=== PATIENT | female | born 2000 | race Caucasian/White ===

== ENCOUNTER 2025-11-14 19:00 | Inpatient (IN) | payer BC, SELFPAY ==
--- OUTSIDE RECORDS SUMMARY | 2025-11-14 19:29 | XMS RPT_ITS | CCD ---
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 Name Role Phone VALDEZ FULTON Unavailable Unavailable TIMPERMAN, KELLY Unavailable Unavailable JOHNNY, KELLY Unavailable Unavailable VALDEZ FULTON Unavailable Unavailable JOHNNY, KELLY Unavailable Unavailable Liz Edgar Primary Care Provider [phone] Nguyễn [employer] TRAFFIC CONTROLLER, Tabbitha Carlos Primary Care Prov ider Liz Edgar MD Primary Care Provider NGUYỄN TABBITHA CARLOS Attending Unava ilable NGUYỄN, TABBITHA CARLOS Primary Care Unava ilable Nguyễn [employer] ROUTE TRAFFIC CONTROLLER, Tabbitha Carlos Primary Care Prov ider Nguyễn AIR ROUTE TRAFFIC CONTROLLER, Tabbitha Carlos Unavailable Unavailable Primary Care Provider UnavailSARAH Duke Attending Unavailable Nguyễn AIR ROUTE TRAFFIC CONTROLLER, Tabbitha Carlos Unavailable NGUYỄN, TABBITHA CARLOS Primary Care Unava ilable Nguyễn AIR ROUTE TRAFFIC CONTROLLER, Tabbitha D Primary Care Provider Nguyễn AIR ROUTE TRAFFIC CONTROLLER, Tabbitha Carlos Primary Care Prov ider LUANN LOMAS Attending Unavailable NGUYNỄ, TABBITHA CARLOS Primary Care Unava ilable SLAVA SANCHEZ Attending Unavailabl e NGUYỄN, TABBITHA CARLOS Primary Care Unava ilable SLAVA SANCHEZ Referring Unavailabl e NGUYỄN, TABBITHA CARLOS Primary Care Unava ilable NGUYỄN, TABBITHA CARLOS Attending Unava ilable NGUYỄN, TABBITHA CARLOS Primary Care Unava ilable NGUYỄN, TABBITHA CARLOS Attending Unava ilable NGUYỄN, TABBITHA CARLOS Primary Care Unava ilable Huong Hicks Admitting Unavail able Huong Hicks Attending Unavail able Huong Hicks Referring Unavail able ERIKA, 2 Primary Care Unavailable KENDAL, TIANA Referring Unavailable NGUYỄN, TABBITHA CARLOS Primary Care Unava ilable NGUYỄN, TABBITHA CARLOS Primary Care Unava ilable KENDAL, TIANA Referring Unavailable DEENA HANSON Attending Unavailable NGUYỄN, TABBITHA CARLOS Primary Care Unava ilable KENDAL, TIANA Referring Unavailable KENDAL, TIANA Attending Unavailable SELF Referring Unavailable NGUYỄN, TABBITHA CARLOS Primary Care Unava ilable NGUYỄN, TABBITHA CARLOS Primary Care Unava ilable DEENA HANSON Attending Unavailable NGUYỄN, TABBITHA CARLOS Primary Care Unava ilable DEENA HANSON Referring Unavailable NGUYỄN, TABBITHA CARLOS Primary Care Unava ilable BENDARAM, CORY VALDOVINOS Attending Unavaila ble NGUYỄN, TABBITHA CARLOS Primary Care Unava ilable NGUYỄN, TABBITHA CARLOS Primary Care Unava ilable ARELI BOOTH Referring Unavailable WAYNE HERNÁNDEZ Attending Unavailable NGUYỄN, TABBITHA CARLOS Primary Care Unava ilable BENDARAM, CORY VALDOVINOS Attending Unavaila ble DEENA HANSON Referring Unavailable NGUYỄN, TABBITHA CARLOS Primary Care Unava ilable KENDAL, TIANA Referring Unavailable NGUYỄN, TABBITHA CARLOS Primary Care Unava ilable KENDAL, TIANA Referring Unavailable HUONG LY Attending Unavail able NGUYỄN, TABBITHA CARLOS Primary Care Unava ilable CRISTINE ISLAS Attending Unavailable NGUYỄN, TABBITHA CARLOS Primary Care Unava ilable BENDARAM, CORY VALDOVINOS Referring Unavaila ble NGUYỄN, TABBITHA CARLOS Primary Care Unava ilable BENDARAM, CORY VALDOVINOS Attending Unavaila ble NGUYỄN, TABBITHA CARLOS Primary Care Unava ilable HILARIO SY Attending Unavailable NGUYỄN, TABBITHA CARLOS Primary Care Unava ilable TONNY HENDRICKS Attending Unavailable NGUYỄN [facility] Primary Care Unava DEENA Mcclendon Referring Unavailable [facility] Primary Care HUONG Oliver Attending Unavail able Medications Current Medications Medication Drug Class(es) Dates Sig (Normalized) Sig (Original) aluminum chloride 200 mg/ml topical solution (2 sources) Start: 01-02-2024 End: 01-01-2025 aluminum chloride (Drysol) 20 % external solution Indications: Hyperhidrosis Apply topically nightly . 35 mL 0 01/02/2024 01/01/2025 Active amoxicillin 500 mg oral capsule (20 sources) Penicillin-class Antibacterial Start: 01-06-2025 End: 01-06-2026 take 1 capsule by mouth twice daily amoxicillin (AMOXIL) 500 MG capsule Indications: Acne vulgaris Take 1 (one) capsule (500 mg total) by mouth 2 (two) times a day . 180 capsule 3 01/06/2025 01/06/2026 Active Start: 05-22-2022 End: 01-01-2025 take 1 capsule by mouth twice daily amoxicillin (AMOXIL) 500 MG capsule Indications: Acne vulgaris Take 1 (one) capsule (500 mg total) by mouth 2 (two) times a day . 180 capsule 3 01/02/2024 01/01/2025 Active End: 05-31-2025 take 1 tablet by mouth twice daily Amoxicillin 500 mg tablet Take 500 mg by mouth two times a day. 05/31/2025 Discontinued (Discontinued by Patient) calcium carb,cit-mag cit,ox-D3 300 mg-150 mg- 400 unit Tab (2 sources) calcium carb,cit -mag cit,ox-D3 300 mg-150 mg- 400 unit Tab Take by mouth . Active cholecalciferol 0.01 mg oral tablet (12 sources) Vitamin D take 1 tablet by mouth once daily cholecalciferol (VITAMIN D-3) 400 unit tab Take 400 Units by mouth once daily. Active Drug or medicament (substance) (4 sources) End: 01-06-2025 ergocalciferol 1.25 mg oral capsule (3 sources) Provitamin D2 Compound Start: 01-09-2024 End: 01-06-2025 take 1 capsule by mouth every week ergocalciferol (ERGOCALCIFEROL) 1,250 mcg (50,000 unit) capsule Indications: Vitamin D deficiency Take 1 (one) capsule (50,000 Units total) by mouth once a week for 6 doses . 6 capsule 01/09/2024 01/06/2025 Discontinued (Therapy completed) levothyroxine sodium 0.075 mg oral capsule (20 sources) l-Thyroxine Start: 08-03-2025 take 1 capsule by mouth once daily before breakfast levothyroxine (TIROSINT) 75 mcg cap Indications: Hypothyroidism, unspecified type , 26 weeks gestation of (HCC) Take 1 capsule by mouth daily before breakfast. 90 each 1 08/03/2025 Active Start: 06-08-2025 take 1 capsule by mo uth once daily before breakfast levothyroxine (TIROSINT) 50 mcg cap Take 1 capsule by mouth daily before breakfast. 90 capsule 06/08/2025 Active Start: 05-27-2023 End: 01-06-2026 take 0.5 tablet by mouth once daily levothyroxine (SYNTHROID, LEVOTHROID) 75 MCG tablet Indications: Hypothyroidism, acquired, autoimmune Take 0.5 (one-half) tablet (37.5 mcg total) by mouth once daily . 45 tablet 3 01/06/2025 01/06/2026 Active Start: 06-19-2022 End: 12-16-2022 take 0.5 tablet by mouth once daily levothyroxine (SYNTHROID, LEVOTHROID) 75 MCG tablet Indications: Hypothyroidism, acquired, autoimmune Take 0.5 (one-half) tablet (37.5 mcg total) by mouth once daily . 90 tablet 0 06/19/2022 Active Start: 11-25-2018 End: 06-19-2022 levothyroxine (SYNTHROID, LEVOTHROID) 75 MCG tablet Take 37.5 mcg by mouth every night at bedtime . 0 11/25/2018 06/19/2022 Discontinued (Reorder) End: 06-08-2025 take 1 capsule by mouth once daily before breakfast levothyroxine (TIROSINT) 37.5 mcg capsule Take 37.5 mcg by mouth daily before breakfast. 06/08/2025 Discontinued take 1 capsule by mo uth once daily before breakfast levothyroxine (TIROSINT) 37.5 mcg capsule Take 37.5 mcg by mouth daily before breakfast. Active take 1 capsule by [facility] once daily before breakfast levothyroxine (TIROSINT) 37.5 mcg capsule Take 37.5 mcg by mouth daily before breakfast. 0 Active magnesium citrate 100 mg oral tablet (12 sources) take 1 tablet by mouth once daily magnesium citrate 100 mg tab Take 1 tablet by mouth once daily. Active 24 hr oxybutynin chloride 10 mg extended release oral tablet (19 sources) Cholinergic Muscarinic Antagonist Start: 08-29-2023 End: 01-01-2025 take 1 tablet by mouth twice daily oxyBUTYnin (DITROPAN-XL) 10 MG 24 hr tablet Indications: Spastic bladder Take 1 (one) tablet (10 mg total) by mouth 2 (two) times a day . 180 tablet 3 01/02/2024 01/01/2025 Active Start: 08-29-2023 oxybutynin XL (Ditropan-XL) 10 MG 24 hr tablet Start: 12-20-2022 End: 08-27-2023 take 1 tablet by mouth twice daily oxybutynin (DITROPAN-XL) 10 MG 24 hr tablet Take 1 (one) tablet (10 mg total) by mouth 2 (two) times a day . 0 12/20/2022 08/27/2023 Discontinued (Reorder (Suppress CancelRx Message to Pharmacy)) Start: 06-19-2022 End: 12-16-2022 take 1 tablet by mouth twice daily oxybutynin (DITROPAN-XL) 10 MG 24 hr tablet Indications: Spastic bladder Take 1 (one) tablet (10 mg total) by mouth 2 (two) times a day . 180 tablet 1 06/19/2022 12/16/2022 Active Start: 03-14-2022 End: 06-19-2022 oxybutynin (DITROPAN-XL) 10 MG 24 hr tablet Start: 07-13-2021 End: 04-01-2025 take 1 tablet by mouth once daily oxybutynin ER (DITROPAN XL) 10 mg 24 hr tablet Take 1 tablet by mouth once daily. 07/13/2021 04/01/2025 Discontinued (Course of therapy completed) no115/iron/folic ac id ( 19 ORAL) (12 sources) take 1 tablet by mouth once daily no115/iron/folic acid ( 19 ORAL) Take 1 tablet by mouth once daily. Active no115/i moe/folic acid ( 19 ORAL) Take by mouth once daily. Active Completed/Discontinued Medications Medication Drug Class(es) Dates Sig (Normalized) Sig (Original) aspirin 81 mg delayed release oral tablet (9 sources) Platelet Aggregation Inhibitor, Nonsteroidal Anti-inflammatory Drug Start: 04-01-2025 End: 06-25-2025 take 1 tablet by mouth once daily aspirin, enteric coated (ECOTRIN LOW STRENGTH) 81 mg EC tablet Indications: with uncertain dates in first trimester (HCC) Take 1 tablet by mouth once daily. 90 tablet 3 04/01/2025 06/25/2025 Discontinued barium sulfate (POLARBAR ACB) 96 % enema 1 Dose (1 source) Start: 09-09-2019 End: 09-09-2019 barium sulfate (POLARBAR ACB) 96 % enema 1 Dose doxycycline hyclate 100 mg delayed release oral tablet (2 sources) Tetracycline-class Drug End: 06-19-2022 doxycycline (DORYX) 100 MG EC tablet Take 100 mg by mouth . 0 06/19/2022 Discontinued (Patient's Request) polyethylene glycol 3350 06139 mg powder for oral solution (6 sources) Osmotic Laxative Start: 08-06-2019 End: 06-19-2022 polyethylene glycol (MIRALAX) 17 gram powder Take 2.9 g by mouth every night at bedtime . 0 08/06/2019 06/19/2022 Discontinued End: 01-06-2025 take 1 capsule by mouth once daily polyethylene glycol (MIRALAX) 17 gram powder Take 17 (seventeen) g by mouth daily Taking 1 cap full daily . 01/06/2025 Discontinued Problems Active Problems Problem Classification Problem Date Documented Da te Episodic/Chronic Administrative/social admission (8 sources) Patient encounter status; Translations: [Persons encountering health services in other specified circumstances] Episodic Headache; including migraine (1 source) Occipital headache; Translations: [Occipital pain] 09-21-2023 Episodic Immunizations and screening for infectious disease (3 sources) Encounter for immunization; Translations: [Encounter for screening for infections with a predominantly sexual mode of transmission] Onset: 04-01-2025 Episodic Menstrual disorders (2 sources) Secondary amenorrhea; Translations: [Secondary amenorrhea] Onset: 01-04-2025 01-04-2025 Chronic Nutritional deficiencies (3 sources) Vitamin D deficiency; Translations: [Vitamin D deficiency, unspecified] Chronic Other complications of (2 sources) Hypothyroidism in ; Translations: [Endocrine, nutritional and metabolic diseases complicating , unspecified trimester] 06-25-2025 Episodic Other diseases of bladder and urethra (14 sources) Spasm of bladder; Translations: [Other specified disorders of bladder] Onset: 08-05-2017 Chronic Other gastrointestinal disorders (2 sources) Altered bowel function; Translations: [Change in bowel habit] 09-24-2024 Episodic Other and delivery including normal (20 sources) Normal ; Translations: [Encounter for supervision of normal first , unspecified trimester] Onset: 04-01-2025 04-01-2025 Episodic Other screening for suspected conditions (not mental disorders or infectious disease) (10 sources) Cancer cervix screening status; Translations: [Encounter for screening for malignant neoplasm of cervix] Onset: 04-01-2025 04-01-2025 Episodic Other skin disorders (1 source) Hyperhidrosis; Translations: [Generalized hyperhidrosis] 01-02-2024 Episodic Other skin disorders (2 sources) Generalized hyperhidrosis; Translations: [Generalized hyperhidrosis] Onset: 01-02-2024 Episodic Residual codes; unclassified (3 sources) Gestation period, 8 weeks; Translations: [8 weeks gestation of ] 04-01-2025 Episodic Residual codes; unclassified (2 sources) Gestation period, 12 weeks; Translations: [12 weeks gestation of ] 04-29-2025 Episodic Residual codes; unclassified (1 source) Gestation period, 16 weeks; Translations: [16 weeks gestation of ] 05-31-2025 Episodic Residual codes; unclassified (3 sources) Gestation period, 17 weeks; Translations: [17 weeks gestation of ] 06-08-2025 Episodic Residual codes; unclassified (2 sources) Gestation period, 20 weeks; Translations: [20 weeks gestation of ] 06-25-2025 Episodic Residual codes; unclassified (1 source) Gestation period, 24 weeks; Translations: [24 weeks gestation of ] 07-23-2025 Episodic Residual codes; unclassified (1 source) Gestation period, 26 weeks; Translations: [26 weeks gestation of ] 08-03-2025 Episodic Residual codes; unclassified (1 source) 34 weeks gestation of ; Translations: [34 weeks gestation of (HCC)] Onset: 10-01-2025 Episodic Residual codes; unclassified (1 source) 32 weeks gestation of ; Translations: [32 weeks gestation of (HCC)] Onset: 09-14-2025 Episodic Residual codes; unclassified (1 source) 24 weeks gestation of ; Translations: [24 weeks gestation of (HCC)] Onset: 08-24-2025 Episodic Residual codes; unclassified (1 source) 29 weeks gestation of ; Translations: [29 weeks gestation of (HCC)] Onset: 08-24-2025 Episodic Residual codes; unclassified (1 source) 26 weeks gestation of ; Translations: [26 weeks gestation of (HCC)] Onset: 08-03-2025 Episodic Thyroid disorders (20 sources) Autoimmune hypothyroidism; Translations: [Autoimmune thyroiditis] Onset: 08-28-2010 Chronic Unclassified (12 sources) [facility] - COMMON Onset: 04-01-2025 04-01-2025 Unclassified (12 sources) Education - [place] Onset: 04-01-2025 04-01-2025 Past or Other Problems Problem Classification Problem Date Documented Da te Episodic/Chronic Mood disorders (6 sources) Mood disorders Onset: 06-19-2022 Resolved: 01-06-2025 06-19-2022 Other complications of (1 source) Endocrine, nutritional and metabolic diseases complicating , unspecified trimester; Translations: [Hypothyroid in , antepartum ([facility])] Onset: 06-25-2025 Episodic Other gastrointestinal disorders (6 sources) Constipation; Translations: [Constipation, unspecified] Onset: 06-25-2024 01-03-2024 Episodic Other gastrointestinal disorders (1 source) Constipation, unspecified; Translations: [Constipation, unspecified constipation type] Onset: 10-12-2024 Episodic Other gastrointestinal disorders (1 source) Change in bowel habit; Translations: [Change in bowel habits] Onset: 10-12-2024 Episodic Other skin disorders (16 sources) Acne vulgaris; Translations: [Acne vulgaris] Onset: 05-16-2016 Episodic Other skin disorders (1 source) Acne vulgaris; Translations: [Acne vulgaris] Onset: 06-19-2022 Episodic Residual codes; unclassified (1 source) 20 weeks gestation of ; Translations: [20 weeks gestation of (HCC)] Onset: 06-25-2025 Episodic Residual codes; unclassified (1 source) 17 weeks gestation of ; Translations: [17 weeks gestation of (HCC)] Onset: 06-08-2025 Episodic Residual codes; unclassified (1 source) 16 weeks gestation of ; Translations: [16 weeks gestation of (HCC)] Onset: 05-31-2025 Episodic Residual codes; unclassified (1 source) 12 weeks gestation of ; Translations: [12 weeks gestation of (HCC)] Onset: 04-29-2025 Episodic Residual codes; unclassified (1 source) 8 weeks gestation of ; Translations: [8 weeks gestation of (HCC)] Onset: 04-29-2025 Episodic Unclassified (1 source) Facial pressure Onset: 09-21-2023 Results Test Name Value Interpretation Reference Range Facil ity CNOVon 10-05-2025 CNOV Office Visit (ENWSTR ) MAXIMILIAN RAE ([id number]) 4 F Date Time Provider Department 10/05/25 9:20 AM CORY MARIE ENWSTR During your visit today, we recorded the following information about you: Pulse Blood pressure Weight 96/minute 120/74 85.3 kg Cory Marie MD 10/05/2025 10:12 AM Signed [facility] Follow up note CONSULTING PROVIDER: Deena Hanson APRN. CNM My final recommendations will be communicated back to the requesting provider by way of shared Medical record or a letter via [place] mail Subjective: Maximilian Ibarrayusra is a 25 year old female here for follow up of hypothyroidism. Currently 35 weeks Hypothyroidism was discovered at the age of 12 years. She has seen pediatric endocrinology and was started on levothyroxine. Then was transferred back to her occupational therapist aide, who has monitored labs every 6 months, until she was transitioned to PCP at adult medicine after which labs were done annually. Her dose has not changed since Cause of hypothyroidism: unclear, reports she knows it is not Jake's Current treatment: Tirosint 75 mcg daily Prior treatment: Tirosint 37.5 mcg daily followed by 50 mcg daily changed during - Takes medication 30 minutes to sometimes 2 hours after last meal, depending on schedule. - Takes vitamins in the evening - Denies significant changes in sleep, or bowel habits beyond typical -related symptoms. - Experiencing typical symptoms, including fatigue and slight changes in appetite. - denied any concerns today - No family history of thyroid or autoimmune issues. REVIEW OF SYSTEMS: GENERAL:No weight loss, malaise or fevers HEENT:Negative for frequent or significant headaches, No changes in hearing or vision, no nose bleeds or other nasal problems NECK:Negative for lumps, goiter, pain and significant neck swelling RESPIRATORY: Negative for cough, hemoptysis, wheezing or shortness of breath CARDIOVASCULAR: Negative for chest pain, leg swelling or palpitations GASTROINTESTINAL: No nausea, vomiting, or persistent diarrhea GENITOURINARY: no dysuria, Polyuria, no changes in urinary frequency MUSCULOSKELETAL:no muscle aches, arthralgia NEUROLOGIC: no numbness, tingling, no Paresthesias, no headaches SKIN:Negative for lesions, rash, and itching PSYCHIATRIC: Negative for sleep disturbance, mood disorder and recent psychosocial stressors. HEMATOLOGIC/LYMPHATIC /IMMUNOLOGIC:Negative for prolonged bleeding, bruising easily ENDOCRINE: Negative for cold or heat intolerance or goiter ALLERGIES: ALLERGIES No Known Allergies MEDICATIONS: Current Outpatient Medications on File Prior to Visit Medication Sig no115/iron/folic acid ( 19 ORAL) Take 1 tablet by mouth once daily. magnesium citrate 100 mg tab Take 1 tablet by mouth once daily. cholecalciferol (VITAMIN D-3) 400 unit tab Take 400 Units by mouth once daily. levothyroxine (TIROSINT) 37.5 mcg capsule Take 37.5 mcg by mouth daily before breakfast. aspirin, enteric coated (ECOTRIN LOW STRENGTH) 81 mg EC tablet Take 1 tablet by mouth once daily. (Patient not taking: Reported on 05/31/2025) No current facility-administered medications on file prior to visit. PAST MEDICAL HISTORY: PAST MEDICAL HISTORY Diagnosis Date Coitus painful for female Cystic acne Pt reported Hypothyroidism Pt reported Overactive bladder Pt reported Sessile serrated polyp of colon PAST SURGICAL HISTORY: PAST SURGICAL HISTORY Procedure Laterality Date BLADDER SURGERY HX at age 7 COLONOSCOPY DIAGNOSTIC 10/12/2024 Sessile Serrated polyp COLPOSCOPY CERVIX VAG LOOP ELTRD BX CERVIX EXTRACTION ERUPTED TOOTH/EXR FAMILY HISTORY: FAMILY HISTORY Problem Relation Age of Onset Colon Cancer Other Breast Cancer Other Colon Cancer Other SOCIAL HISTORY: Social History Tobacco Use Smoking status: Never Passive exposure: Never Smokeless tobacco: Never Vaping Use Vaping status: Never Used Substance Use Topics Alcohol use: Never Drug use: Never PHYSICAL EXAM: BP 120/74 (BP Site: Right Arm, BP Position: Sitting, BP Cuff Size: Large Adult) Pulse 96 Wt 85.3 kg (188 lb) LMP 02/01/2025 (Exact Date) SpO2 98% BMI 32.27 kg/m? Last 3 Encounter Wt Readings: Date: Wt: 05/31/2025 72.2 kg (159 lb 3.2 oz) 04/29/2025 69.4 kg (153 lb) 04/01/2025 69.9 kg (154 lb) General: Alert and oriented x3, no acute distress Eyes: Anicteric sclera. Extraocular movements are intact. Neck supple, no cervical lymphadenopathy Thyroid: normal size, normal texture, no palpable nodules Lungs: Breathing unlabored, No wheezing Heart: regular rate and rhythm, no murmur, S1 and S2 normal Musculoskeletal: Muscular strength intact, No joint swelling, deformity, or tenderness Neuro: Gait normal. (more content not included)... Normal [facility] T4 Free SerPl-mCncon 025 Free T4 [Mass/Vol] 0.9 ng/dL Normal 0.9-1.7 [facility] Comment on above: Order Comment: Speci men Type: BLOOD SPECIMENOrdering Facility: [facility] Address: [address] [place] [address] Performed By: #### 3 024-7, 3016-3 ####[facility] LABCLIA [id number] [place] [address] [place] TSH SerPl-aCncon 09-14-2025 TSH Qn 1.730 m[IU]/L Normal 0.270-4.200 [facility] Comment on above: Order Comment: Zabrina romeo Type: BLOOD SPECIMENOrdering Facility: [facility] Address: [address] [place] [address] Result Comment: If t he patient is , TSH reference range varies by gestational period: First Trimester (weeks 9-12): 0.180-2.990 mIU/L Second Trimester: 0.110-3.980 mIU/L Third Trimester: 0.480-4.710 mIU/L Miguel Angel Amezcua et al. A Practical Approach for the Verifications and Determination of Site- and Trimester-Specific Reference Intervals for Thyroid Function tests in . Thyroid, 2019:29:3:412-420. Goyo E, et al. 2017 Guidelines of the [place] [employer] Association for the Diagnosis and Management of Thyroid Disease during and the . Thyroid, 2017:27:3:315-389. Performed By: #### 3 024-7, 3016-3 ####[facility] LABCLIA [id number] [place] [address] [place] CBC panel Auto (Bld)on 08-24 Erythrocyte distribution width (RBC) [Ratio] 13.2 % Normal 11.5-15.0 [facility] Comment on above: Order Comment: Zabrina romeo Type: BLOOD SPECIMENOrdering Facility: [facility] Address: [address] [place] [address] Performed By: #### 5 8410-2 ####[facility] [id number] [place] [address] [place] Hematocrit (Bld) [Volume fraction] 32.9 % Low 36.0-46.0 [facility] Comment on above: Order Comment: Zabrina romeo Type: BLOOD SPECIMENOrdering Facility: [facility] Address: [address] [place] [address] Performed By: #### 5 8410-2 ####[facility] [id number] [place] [address] [place] Hemoglobin (Bld) [Mass/Vol] 11.1 g/dL Low 11.5-15.5 [facility] Comment on above: Order Comment: Speci men Type: BLOOD SPECIMENOrdering Facility: [facility] Address: [address] [place] [address] Performed By: #### 5 8410-2 ####[facility] [id number] [address] [place] MCH (RBC) [Entitic mass] 31.2 pg Normal 26.0-34.0 [facility] Comment on above: Order Comment: Speci men Type: BLOOD SPECIMENOrdering Facility: [facility] Address: [address] [place] [address] Performed By: #### 5 8410-2 ####[facility] [id number] [place] [address] [place] MCHC (RBC) [Mass/Vol] 33.7 g/dL Normal 30.5-36.0 [facility] Comment on above: Order Comment: Speci men Type: BLOOD SPECIMENOrdering Facility: [facility] Address: [address] [place] [address] Performed By: #### 5 8410-2 ####[facility] [id number] [place] [address] [place] MCV (RBC) [Entitic vol] 92.4 fL Normal 80.0-100.0 [facility] Comment on above: Order Comment: Speci men Type: BLOOD SPECIMENOrdering Facility: [facility] Address: [address] [place] [address] Performed By: #### 5 8410-2 ####[facility] [id number] [address] [place] Nucleated RBC (Bld) [#/Vol] 10*3/uL Normal <0.01 [facility] Comment on above: Order Comment: Speci men Type: BLOOD SPECIMENOrdering Facility: [facility] Address: [address] [place] [address] Performed By: #### 5 8410-2 ####[facility] RICHMONDNCJEFFA [id number] [place] [address] [place] Platelet mean volume (Bld) [Entitic vol] 10.6 fL Normal 9.0-12.7 [facility] Comment on above: Order Comment: Speci men Type: BLOOD SPECIMENOrdering Facility: [facility] Address: [address] [place] [address] Performed By: #### 5 8410-2 ####[facility] MIKHAILSMOAKSNCLIA [id number] [place] [address] [place] Platelets (Bld) [#/Vol] 224 10*3/uL Normal 150-400 [facility] Comment on above: Order Comment: Speci men Type: BLOOD SPECIMENOrdering Facility: [facility] Address: [address] [place] [address] Performed By: #### 5 8410-2 ####[facility] [id number] [place] [address] [place] RBC (Bld) [#/Vol] 3.56 10*6/uL Low 3.90-5.20 [facility] Comment on above: Order Comment: Speci men Type: BLOOD SPECIMENOrdering Facility: [facility] Address: [address] [place] [address] Performed By: #### 5 8410-2 ####[facility] [id number] [place] [address] [place] WBC (Bld) [#/Vol] 12.96 10*3/uL High 3.70-11.00 [facility] Comment on above: Order Comment: Speci men Type: BLOOD SPECIMENOrdering Facility: [facility] Address: [address] [place] [address] Performed By: #### 5 8410-2 ####[facility] [id number] [place] [address] [place] GESTATIONAL GLUCOSE SCREEN, 1-HOUR, 50 GRAM, NON-FASTINGon 08-24-2025 Glucose [Mass/Vol] 86 mg/dL Normal 74-134 [facility] Comment on above: Order Comment: Speci men Type: BLOOD SPECIMENOrdering Facility: [facility] Address: [address] [place] [address] Result Comment: [facility] Congress of Obstetricians and Gynecologists (Pastora/Karen) guidelines state a gestational diabetes mellitus positive screen is made, in women not previously diagnosed with overt diabetes, when the 1 hr plasma glucose level is equal to or above 140 mg/dL. The [facility] [employer] [facility] [place] recommends a 135 mg/dL cutoff. Performed By: #### G LTGST ####[facility] [id number] [place] [address] [place] Reagin and Treponema pallidu m IgG and IgM [Interp]on 08-24-2025 T. pallidum IgG+IgM IA Ql (S) Non-Reactive Normal Nonreactive [facility] Comment on above: Order Comment: Speci men Type: BLOOD SPECIMENOrdering Facility: [facility] Address: [address] [place] [address] Performed By: #### 7 3752-8 ####[facility] LABCLIA [id number] [place] [id number] [place] Reagin+T pallidum IgG+IgM Se rPl-Impon 08-24-2025 Reagin and Treponema pallidum IgG and IgM [Interp] Cannot exclude recent Treponemal infection if specimen collected within 7-10 days after appearance of suspect lesions or 2-3 weeks after an exposure. Clinical correlation is required. Normal [facility] Comment on above: Order Comment: Speci men Type: BLOOD SPECIMENOrdering Facility: [facility] Address: [address] [place] [address] Performed By: #### 7 3752-8 ####[facility] EVERARDO [id number] [place] PAEZ [address] OF [facility] CNOVon 08-03-2025 CNOV Office Visit (ENWSTR ) MAXIMILIAN RAE ([id number]) 4 F Date Time Provider Department 08/03/25 9:00 AM CORY MARIE ENWSTR During your visit today, we recorded the following information about you: Temperature Pulse Respiration Blood pressure 98.1 degrees 67/minute 20/minute 106/72 Weight 79.4 kg Cory Marie MD 09/02/2025 1:26 AM Signed [facility] Follow up note CONSULTING PROVIDER: Deena Hanson APRN. CNM My final recommendations will be communicated back to the requesting provider by way of shared Medical record or a letter via [place] mail Subjective: Maximilian Rae is a 25 year old female here for follow up of hypothyroidism. Currently 26 weeks Hypothyroidism was discovered at the age of 12 years. She has seen pediatric endocrinology and was started on levothyroxine. Then was transferred back to her occupational therapist aide, who has monitored labs every 6 months, until she was transitioned to PCP at adult medicine after which labs were done annually. Her dose has not changed since Cause of hypothyroidism: unclear, reports she knows it is not Jake's Current treatment: Tirosint 50 mcg daily Prior treatment: Tirosint 37.5 mcg daily - Takes medication 30 minutes to sometimes 2 hours after last meal, depending on schedule. - Takes vitamins in the evening - Denies significant changes in sleep, or bowel habits beyond typical -related symptoms. - Experiencing typical symptoms, including fatigue and slight changes in appetite. - denied any concerns today - No family history of thyroid or autoimmune issues. REVIEW OF SYSTEMS: GENERAL:No weight loss, malaise or fevers HEENT:Negative for frequent or significant headaches, No changes in hearing or vision, no nose bleeds or other nasal problems NECK:Negative for lumps, goiter, pain and significant neck swelling RESPIRATORY: Negative for cough, hemoptysis, wheezing or shortness of breath CARDIOVASCULAR: Negative for chest pain, leg swelling or palpitations GASTROINTESTINAL: No nausea, vomiting, or persistent diarrhea GENITOURINARY: no dysuria, Polyuria, no changes in urinary frequency MUSCULOSKELETAL:no muscle aches, arthralgia NEUROLOGIC: no numbness, tingling, no Paresthesias, no headaches SKIN:Negative for lesions, rash, and itching PSYCHIATRIC: Negative for sleep disturbance, mood disorder and recent psychosocial stressors. HEMATOLOGIC/LYMPHATIC /IMMUNOLOGIC:Negative for prolonged bleeding, bruising easily ENDOCRINE: Negative for cold or heat intolerance or goiter ALLERGIES: ALLERGIES No Known Allergies MEDICATIONS: Current Outpatient Medications on File Prior to Visit Medication Sig no115/iron/folic acid ( 19 ORAL) Take 1 tablet by mouth once daily. magnesium citrate 100 mg tab Take 1 tablet by mouth once daily. cholecalciferol (VITAMIN D-3) 400 unit tab Take 400 Units by mouth once daily. levothyroxine (TIROSINT) 37.5 mcg capsule Take 37.5 mcg by mouth daily before breakfast. aspirin, enteric coated (ECOTRIN LOW STRENGTH) 81 mg EC tablet Take 1 tablet by mouth once daily. (Patient not taking: Reported on 05/31/2025) No current facility-administered medications on file prior to visit. PAST MEDICAL HISTORY: PAST MEDICAL HISTORY Diagnosis Date Cystic acne Pt reported Hypothyroidism Pt reported Overactive bladder Pt reported Sessile serrated polyp of colon PAST SURGICAL HISTORY: PAST SURGICAL HISTORY Procedure Laterality Date BLADDER SURGERY HX at age 7 COLONOSCOPY DIAGNOSTIC 10/12/2024 Sessile Serrated polyp EXTRACTION ERUPTED TOOTH/EXR FAMILY HISTORY: FAMILY HISTORY Problem Relation Age of Onset Colon Cancer Other SOCIAL HISTORY: Social History Tobacco Use Smoking status: Never Smokeless tobacco: Never Vaping Use Vaping status: Never Used Substance Use Topics Alcohol use: Never Drug use: Never PHYSICAL EXAM: BP 106/72 (BP Site: Right Arm, BP Position: Sitting, BP Cuff Size: Regular Adult) Pulse 67 Temp 36.7 ?C (98.1 ?F) (Temporal Artery) Resp 20 Wt 79.4 kg (175 lb) LMP 02/01/2025 (Exact Date) SpO2 99% BMI 30.04 kg/m? Last 3 Encounter Wt Readings: Date: Wt: 05/31/2025 72.2 kg (159 lb 3.2 oz) 04/29/2025 69.4 kg (153 lb) 04/01/2025 69.9 kg (154 lb) General: Alert and oriented x3, no acute distress Eyes: Anicteric sclera. Extraocular movements are intact. No lid lag or stare Neck supple, no cervical lymphadenopathy Thyroid: normal size, normal texture, no palpable nodules Lungs: Breathing unlabored, No wheezing, rhonchi, rales Heart: regular rate and rhythm, no murmur, S1 and S2 normal Musculoskeletal: Muscular strength intact, No joint swelling, deformity, or tenderness Neuro: Gait normal. Sensation grossly intact. No focal findings Abdomen: (more content not included)... Normal [facility] T4 Free SerPl-mCncon 025 Free T4 [Mass/Vol] 1.0 ng/dL Normal 0.9-1.7 [facility] Comment on above: Order Comment: Speci men Type: BLOOD SPECIMENOrdering Facility: [facility] Address: [address] [place] [address] Performed By: #### 3 024-7, 3016-3 ####[facility] LABCLIA [id number] [place] [address] [place] TSH SerPl-aCncon 07-23-2025 TSH Qn 3.690 m[IU]/L Normal 0.270-4.200 [facility] Comment on above: Order Comment: Speci men Type: BLOOD SPECIMENOrdering Facility: [facility] Address: [address] [place] [address] [place] [address] Result Comment: If t he patient is , TSH reference range varies by gestational period: First Trimester (weeks 9-12): 0.180-2.990 mIU/L Second Trimester: 0.110-3.980 mIU/L Third Trimester: 0.480-4.710 mIU/L Miguel Angel Amezcua et al. A Practical Approach for the Verifications and Determination of Site- and Trimester-Specific Reference Intervals for Thyroid Function tests in . Thyroid, 2019:29:3:412-420. Goyo Pascal, et al. 2017 Guidelines of the [place] Thyroid Association for the Diagnosis and Management of Thyroid Disease during and the . Thyroid, 2017:27:3:315-389. Performed By: #### 3 024-7, 3016-3 ####[facility] LABCLIA [id number] [address] Examination level ultrasound on 06-25-2025 Indication Standard anatomic survey Impression The patient is referred for a standard anatomic survey. - Single, live, intrauterine . - biometry is consistent with the established gestational age. - No malformations were visualized on a complete standard anatomic survey. - The amniotic fluid volume is normal amount. - The placenta is anterior, fundal. - The Transabdominal cervical length measures 31 mm with no evidence of funneling or other dynamic changes. - Not all structural malformations can be detected by ultrasound examination. Recommendations Additional follow-up as clinically indicated. Maternal Assessment Height 152 cm Height (ft) 5 ft Physical Exam Initial weight (lb) 153 lb Initial BMI 29.88 kg/m Maternal assessment other: 2 Para 0 REMOTE READ Method Transabdominal ultrasound examination. View: Suboptimal view: limited by position Sandoval . Number of fetuses: 1 Dating LMP on: 02/01/2025 GA by LMP 20 w + 4 d FINA by LMP: 11/08/2025 GA by prior assessment 20 w + 4 d FINA by prior assessment: 11/08/2025 Ultrasound examination on: 06/25/2025 GA by U/S based upon: AC, BPD, Femur, HC GA by U/S 19 w + 6 d FINA by U/S: 11/13/2025 Assigned: based on stated FINA, selected on 06/25/2025 Assigned GA 20 w + 4 d Assigned FINA: 11/08/2025 General Evaluation Cardiac activity present. FHR 142 bpm. movements: present. Presentation: cephalic Placenta: Placental site: anterior, fundal Umbilical cord: Cord vessels: 3 vessel cord Amniotic fluid: Amount of AF: normal amount. MVP 5.8 cm Growth Overview Exam date GA BPD (mm) HC (mm) AC (mm) FL (mm) HL (mm) EFW (g) 06/25/2025 20w 4d 44.3 9% 166.7 16% 159.2 60% 30.6 24% 29.4 17% 336 25% Biometry Standard BPD 44.3 mm 19w 3d 9% Hadlock OFD 59.0 mm 19w 2d 11% Nicolaides HC 166.7 mm 19w 2d 16% Tasneem Cerebellum tr 20.7 mm 19w 5d 38% Hill Nuchal fold 4.4 mm AC 159.2 mm 21w 0d 60% Hadlock Femur 30.6 mm 19w 4d 24% Tasneem Humerus 29.4 mm 19w 4d 17% Tasneem EFW 336 g 20w 1d 25% Hadlock EFW (lb) 0 lb EFW (oz) 12 oz EFW by: Hadlock (HC-AC-FL) Extended Renal Dietitian 5.5 mm CM 2.3 mm <1% Nicolaides Extremities / Bony Struc FL / HC 0.18 17% Hadlock Other Structures FHR 142 bpm Anatomy Cranium: normal Lateral ventricles: normal Choroid plexus: normal Midline falx: normal Cavum septi pellucidi: normal Cerebellum: normal Cisterna magna: normal Head / Neck Vermis: Normal but not required for a standard anatomy exam Neck: Normal but not required for a standard anatomy exam Nuchal fold: Normal but not required for a standard anatomy exam Lips: normal Profile: Normal but not required for a standard anatomy exam Nose: Normal but not required for a standard anatomy exam Face Maxilla: Normal but not required for a standard anatomy exam Mandible: Normal but not required for a standard anatomy exam Orbits: Normal but not required for a standard anatomy exam Lens: Normal but not required for a standard anatomy exam 4-chamber view: normal RVOT view: normal LVOT view: normal 3-vessel view: normal [id number] view: normal Heart / Thorax Situs: situs solitus (normal) Aortic arch view: Normal but not required for a standard anatomy exam SVC: Normal but not required for a standard anatomy exam IVC: Normal but not required for a standard anatomy exam Cardiac axis: normal Rt lung: Normal but not required for a standard anatomy exam Lt lung: Normal but not required for a standard anatomy exam Diaphragm: normal Cord insertion: normal Stomach: normal Kidneys: normal Bladder: normal Genitals: normal Abdomen Abdom. wall: normal Cervical spine: normal Thoracic spine: normal Lumbar spine: normal Sacral spine: normal Arms: normal Legs: normal Rt upper arm: normal Rt forearm: normal Rt hand: normal Rt fingers: normal Lt upper arm: normal Lt forearm: normal Lt hand: normal Lt fingers: normal Rt upper leg: normal Rt lower leg: normal Rt foot: normal Lt upper leg: normal Lt lower leg: normal Lt foot: normal sex: female Wants to know sex: yes Maternal Structures Uterus / Cervix Uterus: Visualized Cervix: Visualized Approach: Transabdominal Cervical length 31.0 mm Other: Patient declined transvaginal ultrasound for cervical length. Ovaries / Tubes / Adnexa Rt ovary: Visualized Lt ovary: Visualized Performed By: Vesta Rhoades RDMS, RVT Read By: Emily Ortiz M.D. MATERNAL MEDICINE [facility] Radiology Study observation (narrative) [facility] CNOVon 06-08-2025 CNOV Office Visit (ENWSTR ) KYRAKONSTANTINMAXIMILIAN ([id number]) 4 F Date Time Provider Department 06/08/25 2:20 PM CORY MARIE During your visit today, we recorded the following information about you: Pulse Respiration Blood pressure Weight 72/minute 16/minute 116/74 73.5 kg Height 1.626 m Cory Marie MD 06/08/2025 2:45 PM Signed [facility] Initial Clinic Visit Note CONSULTING PROVIDER: eDena Hanson APRN. CNM My final recommendations will be communicated back to the requesting provider by way of shared Medical record or a letter via [place] mail Subjective: Maximilian Kyra is a 25 year old female here to establish care for hypothyroidism. Currently 18 weeks Hypothyroidism was discovered at the age of 12 years. She has seen pediatric endocrinology and was started on levothyroxine. Then was transferred back to her occupational therapist aide, who has monitored labs every 6 months, until she was transitioned to PCP at adult medicine after which labs were done annually. Her dose has not changed since Cause of hypothyroidism: unclear, reports she knows it is not Jake's Current treatment: Tirosint 37.5 mcg daily Prior treatment: same - Takes medication 30 minutes to sometimes 2 hours after last meal, depending on schedule. - Takes vitamins after first or second meal. - Denies significant changes in appetite, sleep, or bowel habits beyond typical -related symptoms. - No significant morning sickness; able to keep food down with mild nausea and selective eating. - Experiencing typical symptoms, including fatigue and changes in appetite. - No family history of thyroid or autoimmune issues. REVIEW OF SYSTEMS: GENERAL:No weight loss, malaise or fevers HEENT:Negative for frequent or significant headaches, No changes in hearing or vision, no nose bleeds or other nasal problems NECK:Negative for lumps, goiter, pain and significant neck swelling RESPIRATORY: Negative for cough, hemoptysis, wheezing or shortness of breath CARDIOVASCULAR: Negative for chest pain, leg swelling or palpitations GASTROINTESTINAL: No nausea, vomiting, or persistent diarrhea GENITOURINARY: no dysuria, Polyuria, no changes in urinary frequency MUSCULOSKELETAL:no muscle aches, arthralgia NEUROLOGIC: no numbness, tingling, no Paresthesias, no headaches SKIN:Negative for lesions, rash, and itching PSYCHIATRIC: Negative for sleep disturbance, mood disorder and recent psychosocial stressors. HEMATOLOGIC/LYMPHATIC /IMMUNOLOGIC:Negative for prolonged bleeding, bruising easily ENDOCRINE: Negative for cold or heat intolerance or goiter ALLERGIES: ALLERGIES No Known Allergies MEDICATIONS: Current Outpatient Medications on File Prior to Visit Medication Sig no115/iron/folic acid ( 19 ORAL) Take 1 tablet by mouth once daily. magnesium citrate 100 mg tab Take 1 tablet by mouth once daily. cholecalciferol (VITAMIN D-3) 400 unit tab Take 400 Units by mouth once daily. levothyroxine (TIROSINT) 37.5 mcg capsule Take 37.5 mcg by mouth daily before breakfast. aspirin, enteric coated (ECOTRIN LOW STRENGTH) 81 mg EC tablet Take 1 tablet by mouth once daily. (Patient not taking: Reported on 05/31/2025) No current facility-administered medications on file prior to visit. PAST MEDICAL HISTORY: PAST MEDICAL HISTORY Diagnosis Date Cystic acne Pt reported Hypothyroidism Pt reported Overactive bladder Pt reported Sessile serrated polyp of colon PAST SURGICAL HISTORY: PAST SURGICAL HISTORY Procedure Laterality Date BLADDER SURGERY HX at age 7 COLONOSCOPY DIAGNOSTIC 10/12/2024 Sessile Serrated polyp EXTRACTION ERUPTED TOOTH/EXR FAMILY HISTORY: FAMILY HISTORY Problem Relation Age of Onset Colon Cancer Other SOCIAL HISTORY: Social History Tobacco Use Smoking status: Never Smokeless tobacco: Never Vaping Use Vaping status: Never Used Substance Use Topics Alcohol use: Never Drug use: Never PHYSICAL EXAM: BP 116/74 (BP Site: Right Arm, BP Position: Sitting, BP Cuff Size: Regular Adult) Pulse 72 Resp 16 Ht 162.6 cm (5' 4) Wt 73.5 kg (162 lb) LMP 02/01/2025 (Exact Date) SpO2 100% BMI 27.81 kg/m? Last 3 Encounter Wt Readings: Date: Wt: 05/31/2025 72.2 kg (159 lb 3.2 oz) 04/29/2025 69.4 kg (153 lb) 04/01/2025 69.9 kg (154 lb) General: Alert and oriented x3, no acute distress Eyes: Anicteric sclera. Extraocular movements are intact. Neck supple, no cervical lymphadenopathy Thyroid: normal size, normal texture, no palpable nodules Lungs: Breathing unlabored, No wheezing, rhonchi, rales Heart: regular rate and rhythm, no murmer Musculoskeletal: Muscular strength intact, No joint swelling, deformity, or tenderness Neuro: Gait normal. Sensation grossly intact. No focal (more content not included)... Normal [facility] MAXIMIL[facility]AE ([id number]) 4 F Date Time Provider Department 06/02/25 DEENA HANSON During your visit today, we recorded the following information about you: Nessa Harris RN 06/02/2025 2:07 PM Signed Deena Hanson APRN.CNM to [facility] Ob-Optics Engineer Pool 06/02/25 12:45 PM Result Note TSH abnormal. Order for endocrinology consult placed. Please assist with scheduling. Deena Hanson APRN.CNM THYROID STIMULATING HORMONE; T4 FREE/FREE THYROXINE Nessa Harris RN 06/02/2025 2:07 PM Signed New Pt appt scheduled for 07/19/25 at 8am. Message sent to Dr. Marie's nurse to see if Pt can be seen sooner. Pt aware that we are trying to get her a sooner appt here in [facility] and will be in contact with her if we are able. If we don't hear back from Dr. Marie's office by end of today, this RN will route to her in the meantime to see if she has suggestions re: P's current levothyroxine dose until Pt can be seen or if she can give permission for Pt to be placed in a sooner appt spot. INEZ Cooper Brittney, RN 06/03/2025 10:15 AM Signed Call placed to Pt - endocrinology appt moved to 06/08/2025, at 2:20pm per Dr. Marie. Pt notified and voices understanding. Oumou Chavarria RN June 03, 2025 10:14 AM Allergies As of Date: 06/02/2025 (No Known Allergies) Date Reviewed: 05/31/2025 Reviewed by: Karin Vargas LPN - Fully Assessed Reason for Visit: Results [95] Prescriptions as of 06/03/2025 - aspirin, enteric coated (ECOTRIN LOW STRENGTH) 81 mg EC tablet Take 1 tablet by mouth once daily. - no115/iron/folic acid ( 19 ORAL) Take by mouth once daily. - magnesium citrate 100 mg tab Take by mouth once daily. - cholecalciferol (VITAMIN D-3) 400 unit tab Take 400 Units by mouth once daily. - levothyroxine (TIROSINT) 37.5 mcg capsule Take 37.5 mcg by mouth daily before breakfast. Problem List As Of Date 06/02/2025 Noted Resolved Supervision of normal first , antepart*04/01/2025 Hypothyroidism [E03.9] 04/01/2025 Encounter Status:Closed by VESTA GOODE on 06/03/25 Normal [facility] T4 Free SerPl-mCncon 025 Free T4 [Mass/Vol] 1.1 ng/dL Normal 0.9-1.7 [facility] Comment on above: Order Comment: Speci men Type: BLOOD SPECIMENOrdering Facility: [facility] Address: [address] [place] [address] Performed By: #### 3 024-7, 3016-3 ####[facility] LABCLIA [id number] [place] [address] [place] TSH SerPl-aCncon 05-31-2025 TSH Qn 6.200 m[IU]/L High 0.270-4.200 [facility] Comment on above: Order Comment: Speci agueda Type: BLOOD SPECIMENOrdering Facility: [facility] Address: [address] [place] [address] Result Comment: If t he patient is , TSH reference range varies by gestational period: First Trimester (weeks 9-12): 0.180-2.990 mIU/L Second Trimester: 0.110-3.980 mIU/L Third Trimester: 0.480-4.710 mIU/L Miguel Angel Amezcua et al. A Practical Approach for the Verifications and Determination of Site- and Trimester-Specific Reference Intervals for Thyroid Function tests in . Thyroid, 2019:29:3:412-420. Goyo Pascal, et al. 2017 Guidelines of the [place] Thyroid Association for the Diagnosis and Management of Thyroid Disease during and the . Thyroid, 2017:27:3:315-389. Performed By: #### 3 024-7, 3016-3 ####[facility] LABCLIA [id number] [place] [address] [place] CBC W Auto Differential pane l (Bld)on 04-29-2025 Basophils (Bld) [#/Vol] 0.04 10*3/uL Normal <0.11 [facility] Comment on above: Order Comment: Speci men Type: BLOOD SPECIMENOrdering Facility: [facility] Address: [address] [place] [address] Performed By: #### 5 7021-8 ####[facility] MIKHAILWNCLIA [id number] [place] [address] [place] Basophils/100 WBC (Bld) 0.4 % Normal [facility] Comment on above: Order Comment: Speci men Type: BLOOD SPECIMENOrdering Facility: [facility] Address: [address] [place] [address] Performed By: #### 5 7021-8 ####[facility]ULL[facility]IA [id number] [place] [address] [place] Differential cell count method Nom (Bld) Auto Normal [facility] Comment on above: Order Comment: Speci men Type: BLOOD SPECIMENOrdering Facility: [facility] Address: [address] [place] [address] Performed By: #### 5 7021-8 ####[facility]UM[facility]ULLLIA [id number] [place] [address] [place] Eosinophils (Bld) [#/Vol] 0.15 10*3/uL Normal <0.46 [facility] Comment on above: Order Comment: Speci men Type: BLOOD SPECIMENOrdering Facility: [facility] Address: [address] [place] [address] Performed By: #### 5 7021-8 ####[facility] ERWNCLIA [id number] [place] [address] [place] Eosinophils/100 WBC (Bld) 1.6 % Normal [facility] Comment on above: Order Comment: Speci men Type: BLOOD SPECIMENOrdering Facility: [facility] Address: [address] [place] [address] Performed By: #### 5 7021-8 ####[facility] MIKHAILEmmanuelNCLIA [id number] [place] [address] [place] Erythrocyte distribution width (RBC) [Ratio] 13.3 % Normal 11.5-15.0 [facility] Comment on above: Order Comment: Speci men Type: BLOOD SPECIMENOrdering Facility: [facility] Address: [address] [place] [address] Performed By: #### 5 7021-8 ####[facility]ETTELIA [id number] [place] [address] [place] Hematocrit (Bld) [Volume fraction] 38.1 % Normal 36.0-46.0 [facility] Comment on above: Order Comment: Speci men Type: BLOOD SPECIMENOrdering Facility: [facility] Address: [address] [place] [address] Performed By: #### 5 7021-8 ####[facility]ULLLIA [id number] [place] [address] [place] Hemoglobin (Bld) [Mass/Vol] 12.9 g/dL Normal 11.5-15.5 [facility] Comment on above: Order Comment: Speci men Type: BLOOD SPECIMENOrdering Facility: [facility] Address: [address] [place] [address] Performed By: #### 5 7021-8 ####[facility]ULLLIA [id number] [place] [address] [place] Immature granulocytes (Bld) [#/Vol] 0.04 10*3/uL Normal <0.10 [facility] Comment on above: Order Comment: Speci men Type: BLOOD SPECIMENOrdering Facility: [facility] Address: [address] [place] [address] Performed By: #### 5 7021-8 ####[facility] [id number] [place] [address] [place] Immature granulocytes/100 WBC (Bld) 0.4 % Normal [facility] Comment on above: Order Comment: Speci men Type: BLOOD SPECIMENOrdering Facility: [facility] Address: [address] [place] [address] Performed By: #### 5 7021-8 ####[facility]LIA [id number] [place] [address] [place] Lymphocytes (Bld) [#/Vol] 1.65 10*3/uL Normal 1.00-4.00 [facility] Comment on above: Order Comment: Speci men Type: BLOOD SPECIMENOrdering Facility: [facility] Address: [address] [place] [address] Performed By: #### 5 7021-8 ####[facility] [id number] [place] [address] [place] Lymphocytes/100 WBC (Bld) 17.6 % Normal [facility] Comment on above: Order Comment: Speci men Type: BLOOD SPECIMENOrdering Facility: [facility] Address: [address] [place] [address] Performed By: #### 5 7021-8 ####[facility] [id number] [place] [address] [place] MCH (RBC) [Entitic mass] 30.3 pg Normal 26.0-34.0 [facility] Comment on above: Order Comment: Speci men Type: BLOOD SPECIMENOrdering Facility: [facility] Address: [address] [place], [place] [address] Performed By: #### 5 7021-8 ####[facility] [id number] [place] [address] [place] MCHC (RBC) [Mass/Vol] 33.9 g/dL Normal 30.5-36.0 [facility] Comment on above: Order Comment: Speci men Type: BLOOD SPECIMENOrdering Facility: [facility] Address: [address] [place] [address] Performed By: #### 5 7021-8 ####[facility] MIKHAILLONNIE [id number] [place] [address] [place] MCV (RBC) [Entitic vol] 89.4 fL Normal 80.0-100.0 [facility] Comment on above: Order Comment: Speci men Type: BLOOD SPECIMENOrdering Facility: [facility] Address: [address] [place] [address] Performed By: #### 5 7021-8 ####[facility] [id number] [place] [address] [place] Monocytes (Bld) [#/Vol] 0.73 10*3/uL Normal <0.87 [facility] Comment on above: Order Comment: Speci men Type: BLOOD SPECIMENOrdering Facility: [facility] Address: [address] [place] [address] Performed By: #### 5 7021-8 ####[facility] [id number] [place] [address] [place] Monocytes/100 WBC (Bld) 7.8 % Normal [facility] Comment on above: Order Comment: Speci men Type: BLOOD SPECIMENOrdering Facility: [facility] Address: [address] [place] [address] Performed By: #### 5 7021-8 ####[facility]ULLLI [id number] [place] [address] [place] Neutrophils (Bld) [#/Vol] 6.77 10*3/uL Normal 1.45-7.50 [facility] Comment on above: Order Comment: Speci men Type: BLOOD SPECIMENOrdering Facility: [facility] Address: [address] [place] [address] Performed By: #### 5 7021-8 ####[facility] MILLWNCLIA [id number] [place] [address] [place] Neutrophils/100 WBC (Bld) 72.2 % Normal [facility] Comment on above: Order Comment: Speci men Type: BLOOD SPECIMENOrdering Facility: [facility] Address: [address] [place] [address] Performed By: #### 5 7021-8 ####[facility] [id number] [place] [address] [place] Nucleated RBC (Bld) [#/Vol] 10*3/uL Normal <0.01 [facility] Comment on above: Order Comment: Speci men Type: BLOOD SPECIMENOrdering Facility: [facility] Address: [address] [place] [address] Performed By: #### 5 7021-8 ####[facility] [id number] [place] [address] [place] Nucleated RBC/100 WBC (Bld) [Ratio] 0.0 /100 WBC Normal [facility] Comment on above: Order Comment: Speci men Type: BLOOD SPECIMENOrdering Facility: [facility] Address: [address] [place] [address] Performed By: #### 5 7021-8 ####[facility] [id number] [place] [address] [place] Platelet mean volume (Bld) [Entitic vol] 10.5 fL Normal 9.0-12.7 [facility] Comment on above: Order Comment: Speci men Type: BLOOD SPECIMENOrdering Facility: [facility] Address: [address] [place] [address] Performed By: #### 5 7021-8 ####[facility] [id number] [place] [address] [place] Platelets (Bld) [#/Vol] 253 10*3/uL Normal 150-400 [facility] Comment on above: Order Comment: Speci men Type: BLOOD SPECIMENOrdering Facility: [facility] Address: [address] [place] [address] Performed By: #### 5 7021-8 ####[facility] [id number] [place] [address] [place] RBC (Bld) [#/Vol] 4.26 10*6/uL Normal 3.90-5.20 [facility] Comment on above: Order Comment: Speci men Type: BLOOD SPECIMENOrdering Facility: [facility] Address: [address] [place] [address] Performed By: #### 5 7021-8 ####[facility] [id number] [place] [address] [place] WBC (Bld) [#/Vol] 9.38 10*3/uL Normal 3.70-11.00 [facility] Comment on above: Order Comment: Speci men Type: BLOOD SPECIMENOrdering Facility: [facility] Address: [address] [place] [address] Performed By: #### 5 7021-8 ####[facility] [id number] [place] [address] [place] Examination level ultrasound on 04-29-2025 Indication First trimester anatomic survey Impression The patient is referred for a first trimester anatomy scan including nuchal translucency measurement as clinically indicated. - Single, live, intrauterine . - Pitcairn rump length measurement is consistent with the established gestational age. - No malformations visualized on first trimester anatomic assessment. - The nuchal translucency measurement is 1.5 mm. - Not all structural malformations can be detected by ultrasound examination. Maternal Structures: Right Ovary: Size 42 mm x 26 mm x 20 mm Recommendations - An anatomic survey at 18-20 weeks is recommended given no identified risk factors. Maternal Assessment Height 152 cm Height (ft) 5 ft Weight (lb) 153 lb Physical Exam Initial weight (lb) 153 lb Initial BMI 29.88 kg/m Maternal assessment other: 2 Para 0 REMOTE READ Method Transabdominal ultrasound examination Sandoval . Number of fetuses: 1 Dating LMP on: 02/01/2025 GA by LMP 12 w + 3 d FINA by LMP: 11/08/2025 GA by prior assessment 12 w + 3 d FINA by prior assessment: 11/08/2025 Ultrasound examination on: 04/29/2025 GA by U/S based upon: CRL GA by U/S 12 w + 1 d FINA by U/S: 11/10/2025 Assigned: based on stated FINA, selected on 04/29/2025 Assigned GA 12 w + 3 d Assigned FINA: 11/08/2025 General Evaluation Cardiac activity present Placenta: anterior Cord vessels: 3 vessel cord Amniotic fluid: normal amount Biometry Standard FHR 158 bpm CRL 55.0 mm 12w 1d 15% Hadlock NT 1.50 mm First Trimester Anatomy Calvarium: normal Falx cerebri: normal Choroid plexus: normal Profile: normal Nasal bone: normal Retronasal triangle: normal Maxilla: normal Mandible: normal Nuchal translucency: Unremarkable Situs: normal Cardiac position: normal Cardiac axis: normal 4-chamber view: normal 4-chamber view with color: normal 8-ctxcpa-fxvdfnx view: normal Abdominal cord insertion: normal Stomach: normal Kidneys: normal Bladder: normal Color doppler of perivesical umbilical arteries: normal Vertebral alignment: normal Arms: normal Hands: normal Legs: normal Feet: normal Maternal Structures Uterus / Cervix Uterus: Visualized Uterus length 129 mm Uterus width 85 mm Uterus height 78 mm Uterus Vol 448.0 cm Ovaries / Tubes / Adnexa Rt ovary: Visualized Rt ovary D1 42 mm Rt ovary D2 26 mm Rt ovary D3 20 mm Rt ovary Vol 11.5 cm Lt ovary: Not visualized Performed By: Vesta Rhoades RDMS, RVT Read By: Emily Ortiz M.D. MATERNAL MEDICINE [facility] Radiology Study observation (narrative) [facility] HBV surface Ag Ser Qlon 06-0 HBV surface Ag Ql (S) Negative Normal Negative [facility] Comment on above: Order Comment: Speci men Type: BLOOD SPECIMENOrdering Facility: [facility] Address: [address] [place] [address] Performed By: #### 5 195-3, 79685-5, 09982-3 ####[facility] LABCLIA [id number] [place] [address] [place] HCV Ab Ser Qlon 04-29-2025 HCV Ab Ql (S) Negative Normal Negative [facility] Comment on above: Order Comment: Speci men Type: BLOOD SPECIMENOrdering Facility: [facility] Address: [address] [place] [address] Result Comment: The result suggests no evidence of infection with Hepatitis C virus. Should recent infection be suspected, repeat testing may be considered 4-6 weeks after this draw. Performed By: #### 1 6128-1 ####[facility] LABCLIA [id number] [place] [address] [place] HIV 1+2 Ab IA Qlon HIV 1 and 2 Ab IA.rapid Nom (S/P/Bld) Normal [facility] Comment on above: Order Comment: Speci men Type: BLOOD SPECIMENOrdering Facility: [facility] Address: [address] [place] [address] Result Comment: Test not indicated. Performed By: #### 5 195-3, 41025-6, 27584-2 ####[facility] LABCLIA [id number] [place] [address] [place] HIV 1+2 Ab+HIV1 p24 Ag IA Ql Non-Reactive Normal Nonreactive [facility] Comment on above: Order Comment: Speci men Type: BLOOD SPECIMENOrdering Facility: [facility] Address: [address] [place] [address] Performed By: #### 5 195-3, 47465-1, 04023-4 ####[facility] LABCLIA [id number] [place] [id number] [place] HIV immunoassay testing algorithm interpretation (S/P/Bld) [Interp] Normal [facility] Comment on above: Order Comment: Speci men Type: BLOOD SPECIMENOrdering Facility: [facility] Address: [address] [place] [address] Result Comment: No e vidence of HIV-1 or HIV-2 infection. Should recent infection be suspected, repeat testing may be considered 2-3 weeks after this draw. [place] Rev. Code 3701.243(E): This information has been disclosed to you from confidential records protected from disclosure by state law. You shall make no further disclosure of this information without the specific, written, and informed release of the individual to whom it pertains or as otherwise permitted by state law. A general authorization for the release of medical or other information is not sufficient for the purpose of the release of HIV test results or diagnoses. Performed By: #### 5 195-3, 46521-7, 06874-2 ####[facility] LABCLIA [id number] [place] [address] [place] HbA1c (Bld)on 04-29-2025 Average glucose Estimated from glycated hemoglobin (Bld) [Mass/Vol] 85 mg/dL Normal [facility] Comment on above: Order Comment: Speci agueda Type: BLOOD SPECIMENOrdering Facility: [facility] Address: [address] [place] [address] Result Comment: eAG: (Estimated average glucose) is a calculated value from HgbA1c and is pharmaceutical specialty representative of the average blood glucose level in the last 2-3 month period. Performed By: #### 5 5454-3 ####[facility] LABIA [id number] [place] [address] [place] HbA1c (Bld) [Mass fraction] 4.6 % Normal 4.3-5.6 [facility] Comment on above: Order Comment: Zabrina romeo Type: BLOOD SPECIMENOrdering Facility: [facility] Address: [address] [place] [address] Result Comment: Amer [place] Diabetes Association guidelines indicate that patients with HgbA1c in the range 5.7-6.4% are at increased risk for development of diabetes, and intervention by lifestyle modification may be beneficial. HgbA1c greater or equal to 6.5% is considered diagnostic of diabetes. Performed By: #### 5 5454-3 ####[facility] LABIA [id number] [place] [address] [place] RUBELLA IGG ANTIBODYon 04-29 RUBELLA IGG AB, QUAL Positive Normal Positive [facility] Comment on above: Order Comment: Speci men Type: BLOOD SPECIMENOrdering Facility: [facility] Address: [address] [place] [address] Result Comment: The result suggests recent or past exposure to Rubella virus or history of Rubella vaccination. Positive result may also be seen due to presence of passively-transferred antibodies. Please correlate with patient's history. Performed By: #### R UBIGG ####[facility] LABIA [id number] [place] [address] [place] Reagin and Treponema pallidu m IgG and IgM [Interp]on 04-29-2025 T. pallidum IgG+IgM IA Ql (S) Non-Reactive Normal Nonreactive [facility] Comment on above: Order Comment: Speci [facility] Type: BLOOD SPECIMENOrdering Facility: [facility] Address: [address] [place] [address] Performed By: #### 5 195-3, 90441-6, 07698-3 ####[facility] LABIA [id number] [place] [address] [place] Reagin+T pallidum IgG+IgM Se rPl-Impon 04-29-2025 Reagin and Treponema pallidum IgG and IgM [Interp] Cannot exclude recent Treponemal infection if specimen collected within 7-10 days after appearance of suspect lesions or 2-3 weeks after an exposure. Clinical correlation is required. Normal [facility] Comment on above: Order Comment: Speci men Type: BLOOD SPECIMENOrdering Facility: [facility] Address: [address] [place] [address] Performed By: #### 5 195-3, 91502-0, 75894-6 ####[facility] LABIA [id number] [address] [address] [place] T4 Free SerPl-mCncon 025 Free T4 [Mass/Vol] 1.0 ng/dL Normal 0.9-1.7 [facility] Comment on above: Order Comment: Speci men Type: BLOOD SPECIMENOrdering Facility: [facility] Address: [address] [place] [address] Performed By: #### 3 024-7, 3016-3 ####[facility] [id number] [place] [id number] [place] TSH SerPl-aCncon 04-29-2025 TSH Qn 4.010 m[IU]/L Normal 0.270-4.200 [facility] Comment on above: Order Comment: Speci men Type: BLOOD SPECIMENOrdering Facility: [facility] Address: [address] [place] [address] Result Comment: If t he patient is , TSH reference range varies by gestational period: First Trimester (weeks 9-12): 0.180-2.990 mIU/L Second Trimester: 0.110-3.980 mIU/L Third Trimester: 0.480-4.710 mIU/L Miguel Angel Amezcua et al. A Practical Approach for the Verifications and Determination of Site- and Trimester-Specific Reference Intervals for Thyroid Function tests in . Thyroid, 2019:29:3:412-420. Goyo Pascal, et al. 2017 Guidelines of the [place] Thyroid Association for the Diagnosis and Management of Thyroid Disease during and the . Thyroid, 2017:27:3:315-389. Performed By: #### 3 024-7, 3016-3 ####[facility] [id number] [place] [id number] [place] TYPE + SCREEN PRENATALon ABO O Normal [facility] Comment on above: Order Comment: Speci men Type: BLOOD SPECIMENOrdering Facility: [facility] Address: [address] [place] [address] Performed By: #### T SPN ####[facility] BLOOD BANKCLIA [id number] [place] [address] [place] Rh Nom (Bld) Positive Normal [facility] Comment on above: Order Comment: Speci men Type: BLOOD SPECIMENOrdering Facility: [facility] Address: [address] [place] [address] Performed By: #### T SPN ####[facility] BLOOD BANKCLIA [id number] [place] [address] [place] TYPE AND SCREEN EXPIRATION 05/02/2025 23:59 Normal [facility] Comment on above: Order Comment: Speci men Type: BLOOD SPECIMENOrdering Facility: [facility] Address: [address] [place] [address] Performed By: #### T SPN ####[facility] BLOOD BANKCLIA [id number] [place] [address] [place] Bacteria Ur Culton Bacteria identified Cx Nom (U) ORGANISM ID: 1 10,000 -<50,000 CFU/ml Normal urogenital valery Normal [facility] Comment on above: Performed By: #### 6 30-4 ####[facility] LABCLIA [id number] [place] [address] [place] C. trachomatis+N. gonorrhoea e DNA KATIE+probe Ql (Unsp spec)on 04-01-2025 C. trachomatis rRNA KATIE+probe Ql (Unsp spec) Not detected Normal Not detected [facility] Comment on above: Order Comment: Speci men Type: SWABOrdering Facility: [facility] Address: [address] [place] [address] Performed By: #### 3 6902-5, TRVAMP ####[facility] LABCLIA [id number] [place] [address] [place] N. gonorrhoeae rRNA KATIE+probe Ql (Unsp spec) Not detected Normal Not detected [facility] Comment on above: Order Comment: Speci men Type: SWABOrdering Facility: [facility] Address: [address] [place] [address] Performed By: #### 3 6902-5, TRVAMP ####[facility] LABCLIA [id number] [address] PAP TESTon 04-01-2025 ADEQUACY Normal [facility] Comment on above: Order Comment: Speci men Type: FLUID SPECIMENOrdering Facility: [facility] Address: [address] [place] [address] Result Comment: Sati sfactory for interpretation. No endocervical component Performed By: #### L [id number] ####[facility] LABORATORYCLIA [id number] [address] LABCLIA [id number] [place] [address] [place] CASE REPORT Normal [facility] Comment on above: Order Comment: Speci men Type: FLUID SPECIMENOrdering Facility: [facility] Address: [address] [place] [address] Result Comment: Gyne cologic Cytology Report Case: [id number] Authorizing Provider: Tiana Edmonds APRN.[employer]IR [employer]FFIC CONTROLLER Collected: 04/01/2025 09:04 AM Ordering Location: OB/Gynecology Received: 04/01/2025 11:58 AM First Screen: Feciuch, Anamika, CT, ASCP Rescreen: Rakel Barnes, CT, ASCP Specimen: Pap Test, ThinPrep, Cervix Performed By: #### L [id number] ####[facility] LABORATORYCLIA [id number] [address] LABCLIA [id number] [place] [id number] [place] CLINICAL HISTORY, CYTOLOGY, PATHOLOGY COLLECTOR Routine Exam Normal [facility] Comment on above: Order Comment: Speci men Type: FLUID SPECIMENOrdering Facility: [facility] Address: [address] [place] [address] Performed By: #### L [id number] ####[facility] LABORATORYCLIA [id number] [place], [place] [id number] [place] [address] LABCLIA [id number] [address] [place] [address] [place] FINAL PERFORMING LAB Normal [facility] Comment on above: Order Comment: Speci men Type: FLUID SPECIMENOrdering Facility: [facility] Address: [address] [place], [place] [id number] Result Comment: Tech nical component, chummer screening performed at: [facility], [address] [place] [address] CLIA: [id number] Diagnostic interpretation performed at: [facility], [address] [facility] [address] CLIA# [id number] Hair Tinter: Slava Ferrari MD Performed By: #### L [id number] ####[facility] LABORATORYCLIA [id number] [address] LABCLIA [id number] [place] [id number] [place] INTERPRETATION, CYTOLOGY, PATHOLOGY COLLECTOR Normal [facility] Comment on above: Order Comment: Speci men Type: FLUID SPECIMENOrdering Facility: [facility] Address: [address] [place] [address] Result Comment: Nega tive for intraepithelial lesion or malignancy. at 1610 EDT Performed By: #### L [id number] ####[facility] LABORATORYCLIA [id number] [place] [id number] [facility] LABCLIA [id number] [address] [address] [place] LMP 02/01/2025 Normal [facility] Comment on above: Order Comment: Speci men Type: FLUID SPECIMENOrdering Facility: [facility] Address: [address] [place] [address] Performed By: #### L [id number] ####[facility] LABORATORYCLIA [id number] [address] LABCLIA [id number] [address] [place] [address] [facility] PAP DISCLAIMER COMMENT The Pap Smear is a screening test for cervical cancer. False negative results occur with all screening tests, emphasizing the need for rescreening at recommended intervals, and clinical correlation. Normal [facility] Comment on above: Order Comment: Speci men Type: FLUID SPECIMENOrdering Facility: [facility] Address: [address] [place] [address] Performed By: #### L [id number] ####[facility] LABORATORYCLIA [id number] [address] LABCLIA [id number] [address] [place] [address] [facility] [place] PAP DIGITAL MEDIA DESIGNER COMMENT This specimen has been analyzed by the ThinPrep Imaging System, an automated imaging and review system, which assists the laboratory in evaluating cells on ThinPrep Pap tests. Following automated imaging, selected webster from every slide are reviewed by a chummer. Normal [facility] Comment on above: Order Comment: Speci men Type: FLUID SPECIMENOrdering Facility: [facility] Address: [address] [place] [address] Performed By: #### L [id number] ####[facility] LABORATORYCLIA [id number] [address] LABCLIA [id number] [address] [place] [address] [facility] [place] POC CFA ULTRASOUNDon 04-01-20 Indication Viability. Confirmation of intrauterine . Confirmation of cardiac activity. Estimation of gestational age Impression cardiac activity is visualized, CRL is appropriate for clinical dates, corresponding to FINA 11/08/25 Recommendations Follow up for 1st Trimester Anatomy with Nuchal Translucency as clinically indicated if desired. Method Transvaginal ultrasound examination. View: Adequate visualization Sandoval . Number of embryos: 1 Dating LMP on: 02/01/2025 GA by LMP 8 w + 3 d FINA by LMP: 11/08/2025 Ultrasound examination on: 04/01/2025 GA by U/S based upon: CRL GA by U/S 8 w + 0 d FINA by U/S: 11/11/2025 Assigned: based on the LMP, selected on 04/01/2025 Assigned GA 8 w + 3 d Assigned FINA: 11/08/2025 Biometry Standard FHR 157 bpm CRL 15.6 mm 8w 0d 13% Hadlock Assessment Gestational sac: visualized Location: intrauterine Yolk sac: visualized Embryo: visualized CRL 15.6 mm 8w 0d 13% Hadlock Cardiac activity: present FHR 157 bpm General Evaluation Cardiac activity present. FHR 157 bpm Performed By: Tiana Edmonds CNP Read By: Tiana Edmonds CNP MATERNAL MEDICINE [facility] Radiology Study observation (narrative) [facility] TRICHOMONAS VAGINALIS NAATon 04-01-2025 T. vaginalis DNA KATIE+probe Ql (Unsp spec) Not detected Normal Not detected [facility] Comment on above: Order Comment: Speci men Type: SWABOrdering Facility: [facility] Address: [address] [place] [address] Performed By: #### 3 6902-5, LYNDSEY ####[facility] LABCLIA [id number] [place] [address] [place] CBC (INCLUDES DIFF/PLT)on Basophils (Bld) [#/Vol] 0.059 10*3/uL Normal 0-200 [facility] Comment on above: Performed By: #### 8 66, 57262, 6399, 30940, 7600 #### [facility] [address], [address] [place] [id number] Reel Operator: Clyde Cavazos MD Basophils/100 WBC (Bld) 1.0 % Normal [facility] Comment on above: Performed By: #### 8 66, 44148, 6399, 19751, 7600 #### [facility] of [place] [address] [address] Reel Operator: Clyde Cavazos MD Eosinophils (Bld) [#/Vol] 0.189 10*3/uL Normal 15-500 [facility] Comment on above: Performed By: #### 8 66, 12585, 6399, 16876, 7600 #### [facility] of [place] [address] Reel Operator: Clyde Cavazos MD Eosinophils/100 WBC (Bld) 3.2 % Normal [facility] Comment on above: Performed By: #### 8 66, 07496, 6399, 20189, 7600 #### [facility] of [place] [address] Reel Operator: Clyde Cavazos MD Erythrocyte distribution width (RBC) [Ratio] 12.4 % Normal 11.0-15.0 [facility] Comment on above: Performed By: #### 8 66, 09731, 6399, 42267, 7600 #### [facility] of [place] [address] Reel Operator: Clyde Cavazos MD Hematocrit (Bld) [Volume fraction] 38.0 % Normal 35.0-45.0 [facility] Comment on above: Performed By: #### 8 66, 62389, 6399, 24775, 7600 #### [facility] of [place] [address] Reel Operator: Clyde Cavazos MD Hemoglobin (Bld) [Mass/Vol] 12.3 g/dL Normal 11.7-15.5 [facility] Comment on above: Performed By: #### 8 66, 87339, 6399, 69295, 7600 #### [facility] of [place] [address] Reel Operator: Clyde Cavazos MD Lymphocytes (Bld) [#/Vol] 1.953 10*3/uL Normal 850-3900 [facility] Comment on above: Performed By: #### 8 66, 78199, 6399, 27307, 7600 #### [facility] of [address], [address] [place] [address] Reel Operator: Clyde Cavazos MD Lymphocytes/100 WBC (Bld) 33.1 % Normal [facility] Comment on above: Performed By: #### 8 66, 93468, 6399, 04959, 7600 #### [facility] [place] [address] Reel Operator: Clyde Cavazos MD MCH (RBC) [Entitic mass] 29.9 pg Normal 27.0-33.0 [facility] Comment on above: Performed By: #### 8 66, 25272, 6399, 92298, 7600 #### [facility] [place] [address] Reel Operator: Clyde Cavazos MD MCHC (RBC) [Mass/Vol] 32.4 g/dL Normal 32.0-36.0 [facility] Comment on above: Result Comment: For adults, a slight decrease in the calculated MCHC value (in the range of 30 to 32 g/dL) is most likely not clinically significant; however, it should be interpreted with caution in correlation with other red cell parameters and the patient's clinical condition. Performed By: #### 8 66, 06727, 6399, 10825, 7600 #### [facility] [place] [address] Reel Operator: Clyde Cavazos MD MCV (RBC) [Entitic vol] 92.5 fL Normal 80.0-100.0 [facility] Comment on above: Performed By: #### 8 66, 24349, 6399, 26854, 7600 #### [facility] [place] [address] Reel Operator: Clyde Cavazos MD Monocytes (Bld) [#/Vol] 0.649 10*3/uL Normal 200-950 [facility] Comment on above: Performed By: #### 8 66, 08827, 6399, 32468, 7600 #### [facility] of [place] [address] Reel Operator: Clyde Cavazos MD Monocytes/100 WBC (Bld) 11.0 % Normal [facility] Comment on above: Performed By: #### 8 66, 19546, 6399, 22627, 7600 #### [facility] of [place] [address] Reel Operator: Clyde Cavazos MD Neutrophils (Bld) [#/Vol] 3.05 10*3/uL Normal 1974-0666 [facility] Comment on above: Performed By: #### 8 66, 94186, 6399, 83641, 7600 #### [facility] of [place] [address] Reel Operator: Clyde Cavazos MD Neutrophils/100 WBC (Bld) 51.7 % Normal [facility] Comment on above: Performed By: #### 8 66, 84211, 6399, 56101, 7600 #### [facility] of [place] [address] Reel Operator: Clyde Cavazos MD Platelet mean volume (Bld) [Entitic vol] 11.7 fL Normal 7.5-12.5 [facility] Comment on above: Performed By: #### 8 66, 94664, 6399, 03848, 7600 #### [facility] of [place] [address] Reel Operator: Clyde Cavazos MD Platelets (Bld) [#/Vol] 280 10*3/uL Normal 140-400 [facility] Comment on above: Performed By: #### 8 66, 69286, 6399, 56321, 7600 #### [facility] of [place] [address] Reel Operator: Clyde Cavazos MD RBC (Bld) [#/Vol] 4.11 10*6/uL Normal 3.80-5.10 [facility] Comment on above: Performed By: #### 8 66, 23646, 6399, 64744, 7600 #### [facility] of [place] [address] Reel Operator: Clyde Cavazos MD WBC (Bld) [#/Vol] 5.9 10*3/uL Normal 3.8-10.8 [facility] Comment on above: Performed By: #### 8 66, 72939, 6399, 88442, 7600 #### [facility] of [place] [address] Reel Operator: Clyde Cavazos MD COMPREHENSIVE METABOLIC PANE L W/ANION GAPon 01-07-2025 Albumin [Mass/Vol] 4.7 g/dL Normal 3.6-5.1 [facility] Comment on above: Performed By: #### 8 66, 03610, 6399, 27510, 7600 #### [facility] of [place] [address] Reel Operator: Clyde Cavazos MD ALP [Catalytic activity/Vol] 46 U/L Normal 31-125 [facility] Comment on above: Performed By: #### 8 66, 67660, 6399, 30311, 7600 #### [facility] of [place] [address] Reel Operator: Clyde Cavazos MD ALT [Catalytic activity/Vol] 21 U/L Normal 6-29 [facility] Comment on above: Performed By: #### 8 66, 69849, 6399, 92046, 7600 #### [facility] of [place] [address] Reel Operator: Clyde Cavazos MD AST [Catalytic activity/Vol] 16 U/L Normal 10-30 [facility] Comment on above: Performed By: #### 8 66, 05132, 6399, 09043, 7600 #### [facility] of [place] [address] Reel Operator: Clyde Cavazos MD Bilirubin [Mass/Vol] 0.3 mg/dL Normal 0.2-1.2 [facility] Comment on above: Performed By: #### 8 66, 67257, 6399, 86398, 7600 #### [facility] [place] [address] Reel Operator: Clyde Cavazos MD Calcium [Mass/Vol] 9.5 mg/dL Normal 8.6-10.2 [facility] Comment on above: Performed By: #### 8 66, 47350, 6399, 43243, 7600 #### [facility] [place] [address] Reel Operator: Clyde Cavazos MD Chloride [Moles/Vol] 104 mmol/L Normal 98-110 [facility] Comment on above: Performed By: #### 8 66, 73741, 6399, 32549, 7600 #### [facility] [place] [address] Reel Operator: Clyde Cavazos MD CO2 [Moles/Vol] 27 mmol/L Normal 20-32 [facility] Comment on above: Performed By: #### 8 66, 12191, 6399, 69325, 7600 #### [facility] [place] [address] Reel Operator: Clyde Cavazos MD Creatinine [Mass/Vol] 0.64 mg/dL Normal 0.50-0.96 [facility] Comment on above: Performed By: #### 8 66, 23073, 6399, 43586, 7600 #### [facility] [place] [address] Reel Operator: Clyde Cavazos MD ELECTROLYTE BALANCE 9 mmol/L (calc) Normal 7-17 [facility] Comment on above: Performed By: #### 8 66, 37154, 6399, 03550, 7600 #### [facility] [place] [address] Reel Operator: Clyde Cavazos MD GFR/1.73 sq M.predicted among non-blacks MDRD (S/P/Bld) [Vol rate/Area] 128 mL/min/{1.73_m2} Normal > OR = 60 [facility] Comment on above: Performed By: #### 8 66, 67700, 6399, 51853, 7600 #### [facility] of [place] [address] Reel Operator: Clyde Cavazos MD Glucose [Mass/Vol] 80 mg/dL Normal 65-99 [facility] Comment on above: Result Comment: Fasting reference interval Performed By: #### 8 66, 26050, 6399, 34680, 7600 #### [facility] [place] [address] Reel Operator: Clyde Cavazos MD Potassium [Moles/Vol] 4.4 mmol/L Normal 3.5-5.3 [facility] Comment on above: Performed By: #### 8 66, 17761, 6399, 03768, 7600 #### [facility] of [place] [address] Reel Operator: Clyde Cavazos MD Protein [Mass/Vol] 7.4 g/dL Normal 6.1-8.1 [facility] Comment on above: Performed By: #### 8 66, 85085, 6399, 49234, 7600 #### [facility] of [place] [address] Reel Operator: Clyde Cavazos MD Sodium [Moles/Vol] 140 mmol/L Normal 135-146 [facility] Comment on above: Performed By: #### 8 66, 91547, 6399, 92522, 7600 #### [facility] of [place] [address] Reel Operator: Clyde Cavazos MD Urea nitrogen [Mass/Vol] 17 mg/dL Normal 7-25 [facility] Comment on above: Performed By: #### 8 66, 49164, 6399, 14277, 7600 #### [place] [address] Reel Operator: Clyde Cavazos MD LIPID PANEL, [facility] 12-26 Cholesterol [Mass/Vol] 170 mg/dL Normal <200 [facility] Comment on above: Order Comment: FASTI NG:YES FASTING: YES Performed By: #### 8 66, 77974, 6399, 43507, 7600 #### [facility] [address], [address] [place] [address] Reel Operator: Clyde Cavazos MD Cholesterol in HDL [Mass/Vol] 56 mg/dL Normal > OR = 50 [facility] Comment on above: Order Comment: FASTI NG:YES FASTING: YES Performed By: #### 8 66, 55175, 6399, 67603, 7600 #### [facility] [address], [address] [place] [address] Reel Operator: Clyde Cavazso MD Cholesterol in LDL [Mass/Vol] 97 mg/dL Normal [facility] Comment on above: Order Comment: FASTI NG:YES FASTING: YES Result Comment: Refe rence range: <100 Desirable range <100 mg/dL for primary prevention; <70 mg/dL for patients with CHD or diabetic patients with > or = 2 CHD risk factors. LDL-C is now calculated using the Saul-Angel calculation, which is a validated novel method providing better accuracy than the Friedewald equation in the estimation of LDL-C. Saul ARIZMENDI et al. ESTER. 2013;310(19): 0187-1716 (http://education.Beatpacking.Coverity/faq/PCB509) Performed By: #### 8 66, 23309, 6399, 63668, 7600 #### [facility] [address], [address] [place] [address] Reel Operator: Clyde Cavazos MD Cholesterol.total/Ch olesterol in HDL [Mass ratio] 3.0 {ratio} Normal <5.0 [facility] Comment on above: Order Comment: FASTI NG:YES FASTING: YES Performed By: #### 8 66, 98828, 6399, 80899, 7600 #### [facility] [address], [address] [place] [address] Reel Operator: Clyde Cavazos MD NON HDL CHOLESTEROL 114 mg/dL (calc) Normal <130 [facility] Comment on above: Order Comment: FASTI NG:YES FASTING: YES Result Comment: For patients with diabetes plus 1 major ASCVD risk factor, treating to a non-HDL-C goal of <100 mg/dL (LDL-C of <70 mg/dL) is considered a therapeutic option. Performed By: #### 8 66, 73099, 6399, 02701, 7600 #### [facility] [address], [address] [place] [address] Reel Operator: Clyde Cavazos MD Triglyceride [Mass/Vol] 76 mg/dL Normal <150 [facility] Comment on above: Order Comment: FASTI NG:YES FASTING: YES Performed By: #### 8 66, 83619, 6399, 01304, 7600 #### [facility] [place] [address] Reel Operator: Clyde Cavazos MD T4, FREEon 01-07-2025 Free T4 [Mass/Vol] 1.2 ng/dL Normal 0.8-1.8 [facility] Comment on above: Performed By: #### 8 66, 73566, 6399, 34593, 7600 #### [facility] [place] [address] Reel Operator: Clyde Cavazos MD TSH W/REFLEX TO FT4on 2024 TSH W/REFLEX TO FT4 6.25 mIU/L [facility] Comment on above: Result Comment: Refe rence Range > or = 20 Years 0.40-4.50 Ranges First trimester 0.26-2.66 Second trimester 0.55-2.73 Third trimester 0.43-2.91 Performed By: #### 8 66, 52451, 6399, 24433, 7600 #### [facility] [address], [address] [place] [address] Reel Operator: Clyde Cavazos MD VITAMIN D,25-OH,TOTAL,IAon 0 01-07-2025 VITAMIN D,25-OH,TOTAL,IA 44 ng/mL Normal 30-100 [facility] Comment on above: Result Comment: [place] min D Status 25-OH Vitamin D: Deficiency: <20 ng/mL Insufficiency: 20 - 29 ng/mL Optimal: > or = 30 ng/mL For 25-OH Vitamin D testing on patients on D2-supplementation and patients for whom quantitation of D2 and D3 fractions is required, the QuestAssureD(TM) 25-OH VIT D, (D2,D3), LC/MS/MS is recommended: order code 61444 (patients >2yrs). See Note 1 Note 1 For additional information, please refer to http://education.Beatpacking.Coverity/faq/TOH672 (This link is being provided for informational/ educational purposes only.) Performed By: #### 8 66, 84695, 6399, 78794, 7600 #### [facility] [address], [address] [place] [address] Reel Operator: Clyde Mondragon 01-05-2025 [facility] Telephone (PARAS) MAXIMILIAN WALKER ([id number]) 4 F Date Time Provider Department 01/05/25 SLAVA SANCHEZ During your visit today, we recorded the following information about you: Dwight Ballard RN 01/05/2025 9:27 AM Signed Aware of results. Dwight Ballard RN Unfortunately, it appears that if she was preg then she is not now, but we can not confirm she was preg. Allergies As of Date: 01/05/2025 (No Known Allergies) Date Reviewed: 01/04/2025 Reviewed by: Cherie Caban LPN - Fully Assessed Reason for Visit: Results [95] Prescriptions as of 01/05/2025 - levothyroxine (TIROSINT) 37.5 mcg capsule Take 37.5 mcg by mouth daily before breakfast. - Amoxicillin 500 mg tablet Take 500 mg by mouth two times a day. Problem List As Of Date: 01/05/2025 (None) Encounter Status:Closed by DWIGHT BALLARD on 01/05/25 Normal [facility] B-HCG SerPl-aCncon HCG.beta subunit Qn 2.0 m[IU]/mL Normal <5.0 [facility] Comment on above: Order Comment: Speci men Type: BLOOD SPECIMEN Ordering Facility: [facility] Address: [address] [place] [address] Result Comment: Kelsie truong Performed By: #### 2 1198-7 #### [facility] CLIA [id number] [address] [place] [address] CNOVon 01-04-2025 CNOV Office Visit (OBGWMA ) RICHROLLYMAXIMILIAN HUBBARD ([id number]) 4 F Date Time Provider Department 01/04/25 2:15 PM SLAVA SANCHEZ OBGWWI During your visit today, we recorded the following information about you: Blood pressure Weight Height Last Period 129/76 66 kg 1.626 m 11/20/24 Slava Sanchez MD 01/04/2025 2:34 PM Addendum HPI: Maximilian Walker is a 24 year old No obstetric history on file. who presents @ 6+3 wks by sure LMP of 11/20 but states she bled a little yest. Taking PNV. She stopped taking ditropan. HISTORY: OB History No obstetric history on file. PAST MEDICAL HISTORY Diagnosis Date Sessile serrated polyp of colon PAST SURGICAL HISTORY Procedure Laterality Date BLADDER SURGERY HX at age 7 COLONOSCOPY DIAGNOSTIC 10/12/2024 Sessile Serrated polyp REVIEW OF SYSTEMS: General : No weight loss, malaise or fevers. Abdomen: No abdominal pain, nausea, vomiting, diarrhea, or constipation. No bloating, early satiety, indigestion, or increased flatulence. Bladder: No dysuria, gross hematuria, urinary frequency, urinary urgency, or incontinence. Breast: No breast lumps, nipple d/c, overlying skin changes, redness or skin retraction. PHYSICAL EXAM: GENERAL: Well developed, well nourished in no apparent distress ASSESSMENT/PLAN: 1. Amenorrhea, secondary - ICD9: 626.0, ICD10: N91.1 Follow accordingly, reviewed dietary restrictions. Sab precautions reviewed. - TYPE + SCREEN - HCG QUANTITATIVE Slava Sanchez MD, Slava Taylor MD 01/04/2025 2:34 PM Signed Addended by: SLAVA SANCHEZ on: 01/04/2025 02:34 PM Modules accepted: Orders Allergies As of Date: 01/04/2025 (No Known Allergies) Date Reviewed: 01/04/2025 Reviewed by: Cherie Caban LPN - Fully Assessed Reason for Visit: Establish Care [42] Primary Visit Diagnosis:Amenorrhea, secondary [N91.1] Order(s):TYPE + SCREEN [SQTSCR] Order #: [id number] FUTURE HCG QUANTITATIVE [SQHCGQT] Order #: [id number] FUTURE Prescriptions as of 01/04/2025 - levothyroxine (TIROSINT) 37.5 mcg capsule Take 37.5 mcg by mouth daily before breakfast. - Amoxicillin 500 mg tablet Take 500 mg by mouth two times a day. Problem List As Of Date: 01/04/2025 (None) Medications Discontinued During This Encounter Prescriptions - oxybutynin ER (DITROPAN XL) 10 mg 24 hr tablet (Discontinued) Take 20 mg by mouth once daily. Encounter Status:Closed by SLAVA SANCHEZ on 01/04/25 [facility] HCG QUANTITATIVEon HCG.beta subunit Qn 2 m[IU]/mL [facility] Comment on above: Negative HCG.beta subunit Qnon 2024 Interpretation and review of laboratory results Normal [facility] TYPE + SCREENon 01-04-2025 ABO O Normal [facility] Comment on above: Order Comment: Speci men Type: BLOOD SPECIMEN Ordering Facility: [facility] Address: [address] [place] [address] Performed By: #### T SCR #### [facility] CLIA [id number] [address] Rh Nom (Bld) Positive Normal [facility] Comment on above: Order Comment: Speci men Type: BLOOD SPECIMEN Ordering Facility: [facility] Address: [address] [place] [address] Performed By: #### T SCR #### [facility] CLIA [id number] [address] [facility] TYPE AND SCREEN EXPIRATION 01/07/2025 23:59 Normal [facility] Comment on above: Order Comment: Speci men Type: BLOOD SPECIMEN Ordering Facility: [facility] Address: [address] [place] [address] Performed By: #### T SCR #### [facility] CLIA [id number] [address] [facility] ABO group Nom (Bld) O [facility] Blood group antibody screen Ql Negative [facility] Rh Nom (Bld) Positive [facility] Type and Screen Expiration 01/07/2025 23:59 [facility] CNPJeannine 10-13-2024 CNPN Telephone (KALEY) MAXIMILIAN WALKER ([id number]) 4 F Date Time Provider Department 10/13/24 ARELI BOOTH During your visit today, we recorded the following information about you: Areli Booth PA-C 10/13/2024 4:41 PM Signed Please let patient know that she was found to have 1 colon polyp which was removed. She is to get a another colonoscopy in 3 years as it came back as a sessile serrate polyp. She was recommended to avoid taking Ditropan if possible because it causes constipation. She should eat a high-fiber diet. Impression: - One 10 mm polyp at the hepatic flexure, removed with a cold snare. Resected and retrieved. Injected. Clips were placed. 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 Tattooed. Recommendation: - High fiber diet. - Continue present medications. Avoid Ditropan if possible; causes constipation. - Await pathology results. - Repeat colonoscopy in 3 years for surveillance. Sterling Youssef MA 10/14/2024 2:27 PM Signed Called and spoke with patient. Informed her of her results from below. Patient voiced understanding. Asked about the type of polyp which I explained. No further questions or concerns at this time. October 14, 2024 2:27 PM Sterling Youssef MA Allergies As of Date: 10/13/2024 (No Known Allergies) Date Reviewed: 10/12/2024 Reviewed by: Jose Galloway, INEZ - Fully Assessed Reason for Visit: Results [95] Prescriptions as of 10/14/2024 - levothyroxine (TIROSINT) 37.5 mcg capsule Take 37.5 mcg by mouth daily before breakfast. - oxybutynin ER (DITROPAN XL) 10 mg 24 hr tablet Take 20 mg by mouth once daily. - Amoxicillin 500 mg tablet Take 500 mg by mouth two times a day. Problem List As Of Date: 10/13/2024 (None) Encounter Status:Closed by ARELI BOOTH on 10/13/24 [facility] [id number] 10-12-2024 [id number] HNO ID: [id number] Author: JOSE GALLOWAY, INEZ Service: ? Author Type: Registered Nurse Type: [id number] Filed: 10/12/2024 13:51 Note Text: The patient received a copy of Colonoscopy discharge instructions that contain information for how to contact the physician who performed the procedure and when to seek medical care. Normal [facility] POSTPROC EVALon 024 ANES POSTPROC EVAL HNO ID: [id number] Author: ED BECKER APRN.CRNA Service: Anesthesiology Author Type: Nurse Mobile Sales Consultant Type: Anesthesia Postprocedure Evaluation Filed: 10/12/2024 13:53 Note Text: POST ANESTHESIA EVALUATION NOTE : 2000 Procedure Summary Date: 10/12/24 Room / Location: Ambulatory Surgery Anesthesia Start: 1311 Anesthesia Stop: 1346 Procedure: COLONOSCOPY DIAGNOSTIC Diagnosis: Constipation, unspecified constipation type Change in bowel habits Scheduled Providers: Wayne Hernández MD Responsible Provider: Ed Becker APRN.CRNA Anesthesia Type: MAC ASA Status: 2 Anesthesia Type: MAC Last Vitals Vitals Value Taken Time BP 91/64 10/12/24 1346 Temp 36.3 ?C (97.4 ?F) 10/12/24 1346 Pulse 71 10/12/24 1346 Resp 16 10/12/24 1346 SpO2 98 % 10/12/24 1346 Post Anesthesia Patient Status Patient Evaluation: PACU. PACU/ICU Patient Condition: stable. Neurological Status: aware and responsive. Pulmonary Status: breathing comfortably on room air Airway Control: returned to baseline unsupported. Cardiovascular Status: stable. Pain Management: clinically adequate - multimodal analgesia pain management approach Postoperative Hydration: acceptable. Intraoperative Events: no significant anesthesia events Post Operative Nausea/Vomiting Status: no significant post operative nausea or vomiting Recommendation: continue current plan of care. Anesthesia Observations No Documentation SIGNATURE: Ed Becker APRN.CRNA PATIENT NAME: Maximilian Walker DATE: October 12, 2024 TIME: 1:52 PM CSN: [id number] Normal [facility] ANES PREOPon 10-12-2024 ANES PREOP HNO ID: [id number] Author: WYANE HERNÁNDEZ MD Service: Gastroenterology Author Type: Physician Type: Anesthesia PreOp Filed: 10/12/2024 13:11 Note Text: HISTORY AND PHYSICAL Maximilian Walker, 24 year old female Current history and physical on file: No Is a new History and Physical required for today's visit? Yes Indication for procedure: Constipation PROCEDURE(S) SCHEDULED FOR: Colonoscopy with or without biopsies and with or without removal of polyps or lesions, dilation (any means), treatment of bleeding (any means), based on clinical findings. BASELINE BEHAVIOR: Calm BASELINE ORIENTATION: A AND O x3 All medications and allergies reviewed: Yes Skin Assessment: Warm dry mucus membranes pink Airway/Respiratory Assessment: Airway: visualization of the uvula- Yes Mouth: opening greater than 2 fingerbreadths- Yes Neck: full range of motion- Yes Breath sounds clear/equal- Yes Cardiac Assessment: Regular rate and rhythm without murmur Abdominal Assessment: Abdomen soft, non-tender, no masses or organomegaly. Sedation Plan: Moderate Additional Comments: None Wayne Hernández MD Normal [facility] Colonoscopyon 10-12-2024 Colonoscopy [facility] Gastrointestinal Endoscopy Patient Name: Maximilian Walker Procedure Date: 10/12/2024 1:02 PM Date of : 2000 Admit Type: Outpatient Age: 24 Room: [place] [address] Gender: Female Note Status: Finalized Attending MD: Wayne Hernández MD, [id number] Procedure: Colonoscopy Indications: Constipation Providers: Wayne Hernández MD Patient Profile: Last Colonoscopy: none. The patient's first colonoscopy is today. Referring Physician: Areli Booth (Referring MD) Medicines: Monitored Anesthesia Care Complications: No immediate complications. Requesting Provider: Procedure: Pre-Anesthesia Assessment: - Prior to the procedure, a History and Physical was performed, and patient medications and allergies were reviewed. The patient's tolerance of previous anesthesia was also reviewed. The risks and benefits of the procedure and the sedation options and risks were discussed with the patient. All questions were answered, and informed consent was obtained. Prior Anticoagulants: The patient has taken no anticoagulant or antiplatelet agents. ASA Grade Assessment: I - A normal, healthy patient. After reviewing the risks and benefits, the patient was deemed in satisfactory condition to undergo the procedure. After I obtained informed consent, the scope was passed under direct vision. Throughout the procedure, the patient's blood pressure, pulse, and oxygen saturations were monitored continuously. The Colonoscope was introduced through the anus and advanced to the cecum, identified by appendiceal orifice and ileocecal valve. I was present and participated during the entire procedure, including non-kruger portions, and during the administration and monitoring of Moderate Sedation. The colonoscopy was performed without difficulty. The patient tolerated the procedure well. The quality of the bowel preparation was good. The ileocecal valve, appendiceal orifice, and rectum were photographed. Moderate Sedation: MAC anesthesia was administered by the anesthesia team. Findings: A 10 mm polyp was found in the hepatic flexure. The polyp was sessile. The polyp was removed with a cold snare. Margins of the polypectomy site were cauterized using tip of a hot sbare. Resection and retrieval were complete. Verification of patient identification for the specimen was done. Estimated blood loss was minimal. Area was successfully injected with 8 mL EverLift for a lift polypectomy. Estimated blood loss was minimal. To prevent bleeding post-intervention, two hemostatic clips were successfully placed. 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 There was no bleeding at the end of the procedure. Area was tattooed with an injection of 1 mL of Spot (carbon black). Impression: - One 10 mm polyp at the hepatic flexure, removed with a cold snare. Resected and retrieved. Injected. Clips were placed. 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 Tattooed. Recommendation: - Patient has a contact number available for emergencies. The signs and symptoms of potential delayed complications were discussed with the patient. Return to normal activities tomorrow. Written discharge instructions were provided to the patient. - High fiber diet. - Continue present medications. Avoid Ditropan if possible; causes constipation. - Await pathology results. - Repeat colonoscopy in 3 years for surveillance. - Return to GI clinic as previously scheduled. - The patient is not currently taking anticoagulant or antiplatelet agents. Procedure Code(s): --- Professional --- 11533, Colonoscopy, flexible; with removal of tumor(s), polyp(s), or other lesion(s) by snare technique 55881, Colonoscopy, flexible; with directed submucosal injection(s), any substance CPT copyright 1 [employer]. All rights reserved. The codes documented in this report are preliminary and upon filling station equipment mechanic review may be revised to meet current compliance requirements. Attending Participation: I personally performed the entire procedure. Scope In: 1:17:11 PM Scope Out: 1:40:59 PM MD Wayne Potter MD 10/12/2024 1:54:32 PM This report has been signed electronically by Wayne Hernández MD Number of Addenda: 0 Note Initiated On: 10/12/2024 1:02 PM Estimated Blood Loss: Estimated blood loss was minimal. Normal [facility] Flexible sigmoidoscopy study on 10-12-2024 [facility] Gastrointestinal Endoscopy Patient Name: Maximilian Walker Procedure Date: 10/12/2024 1:02 PM Date of : 2000 Admit Type: Outpatient Age: 24 Room: [place] [address] Gender: Female Note Status: Finalized Attending MD: Wayne Hernández MD, [id number] Procedure: Colonoscopy Indications: Constipation Providers: Wayne Hernández MD Patient Profile: Last Colonoscopy: none. The patient's first colonoscopy is today. Referring Physician: Areli Booth (Referring MD) Medicines: Monitored Anesthesia Care Complications: No immediate complications. Requesting Provider: Procedure: Pre-Anesthesia Assessment: - Prior to the procedure, a History and Physical was performed, and patient medications and allergies were reviewed. The patient's tolerance of previous anesthesia was also reviewed. The risks and benefits of the procedure and the sedation options and risks were discussed with the patient. All questions were answered, and informed consent was obtained. Prior Anticoagulants: The patient has taken no anticoagulant or antiplatelet agents. ASA Grade Assessment: I - A normal, healthy patient. After reviewing the risks and benefits, the patient was deemed in satisfactory condition to undergo the procedure. After I obtained informed consent, the scope was passed under direct vision. Throughout the procedure, the patient's blood pressure, pulse, and oxygen saturations were monitored continuously. The Colonoscope was introduced through the anus and advanced to the cecum, identified by appendiceal orifice and ileocecal valve. I was present and participated during the entire procedure, including non-kruger portions, and during the administration and monitoring of Moderate Sedation. The colonoscopy was performed without difficulty. The patient tolerated the procedure well. The quality of the bowel preparation was good. The ileocecal valve, appendiceal orifice, and rectum were photographed. Moderate Sedation: MAC anesthesia was administered by the anesthesia team. Findings: A 10 mm polyp was found in the hepatic flexure. The polyp was sessile. The polyp was removed with a cold snare. Margins of the polypectomy site were cauterized using tip of a hot sbare. Resection and retrieval were complete. Verification of patient identification for the specimen was done. Estimated blood loss was minimal. Area was successfully injected with 8 mL EverLift for a lift polypectomy. Estimated blood loss was minimal. To prevent bleeding post-intervention, two hemostatic clips were successfully placed. 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 There was no bleeding at the end of the procedure. Area was tattooed with an injection of 1 mL of Spot (carbon black). Impression: - One 10 mm polyp at the hepatic flexure, removed with a cold snare. Resected and retrieved. Injected. Clips were placed. 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 Tattooed. Recommendation: - Patient has a contact number available for emergencies. The signs and symptoms of potential delayed complications were discussed with the patient. Return to normal activities tomorrow. Written discharge instructions were provided to the patient. - High fiber diet. - Continue present medications. Avoid Ditropan if possible; causes constipation. - Await pathology results. - Repeat colonoscopy in 3 years for surveillance. - Return to GI clinic as previously scheduled. - The patient is not currently taking anticoagulant or antiplatelet agents. Procedure Code(s): --- Professional --- 90359, Colonoscopy (more content not included)... PROVATION [facility] Radiology Study observation (narrative) [facility] SURGICAL PATHOLOGYon CASE REPORT Normal [facility] Comment on above: Order Comment: Zabrina romeo Type: TISSUE SPECIMENOrdering Facility: [facility] Address: [address] [place] [address] Result Comment: Surg [facility] Pathology Report Case: [id number] Authorizing Provider: Wayne Hernández MD Collected: 10/12/2024 01:29 PM Ordering Location: Ambulatory Surgery Received: 10/12/2024 08:34 PM Pathologist: Elvira Roque MD Specimen: Colon, Hepatic Flexure, Polyp Performed By: #### S ####[facility] LABCLIA [id number] [place] [address] [place] CLINICAL HISTORY 10 mm polyp at the hepatic flexure. [facility] Comment on above: Order Comment: Zabrina romeo Type: TISSUE SPECIMENOrdering Facility: [facility] Address: [address] [place], [place] [id number] Performed By: #### S ####[facility] LABCLIA [id number] [place] [address] [place] FINAL DIAGNOSIS [facility] Comment on above: Order Comment: Speci men Type: TISSUE SPECIMENOrdering Facility: [facility] Address: [address] [place] [address] Result Comment: MakennaAakash modi, hepatic flexure, polypectomy: - Sessile serrated polyp. - Conventional adenomatous dysplasia is not identified. AEB/bs 10/13/2024 Performed By: #### S ####[facility] LABCLIA [id number] [place] [address] [place] FINAL PERFORMING LAB Normal [facility] Comment on above: Order Comment: Speci men Type: TISSUE SPECIMENOrdering Facility: [facility] Address: [address] [place] [address] Result Comment: Diag nostic interpretation performed at [facility], [address] [place] [address] CLIA# [id number] Hair Tinter: Darian Escobedo M.D. Performed By: #### S ####[facility] LABCLIA [id number] [place] [address] [place] GROSS DESCRIPTION Normal [facility] Comment on above: Order Comment: Speci men Type: TISSUE SPECIMENOrdering Facility: [facility] Address: [address] [place] [address] Result Comment: Makenna. Candy miguelbhavani, Hepatic Flexure, Polyp Received in formalin is one piece of daugherty-white, soft tissue measuring 0.2 x 0.1 x 0.1 cm. Totally submitted in one cassette. [facility] October 12, 2024 10:26 PM Gross examination performed at [facility], [address] [place] [address] Performed By: #### S ####[facility] LABCLIA [id number] [address] [address] [place] CNCOon 10-07-2024 CNCO Letter Text [facility] CNPJeannine 09-24-2024 CNPN Telephone (AGGASTW) MAXIMILIAN WALKER ([id number]) 4 F Date Time Provider Department 09/24/24 ARELI BOOTH AGGASTEmmanuel During your visit today, we recorded the following information about you: Sterling Youssef MA 09/24/2024 3:57 PM Signed Former patient of Luann'diallo looking to do a colonoscopy at this time. No order was placed. Are you able to put one in? Patient would like to go to the [facility]. Thanks! September 24, 2024 3:57 PM MIEK Banks Jessica, PA-C 09/24/2024 4:06 PM Signed Ordered. DEXTER Marte Jessica, PA-C 09/24/2024 4:06 PM Signed Addended by: ARELI BOOTH on: 09/24/2024 04:06 PM Modules accepted: Orders Allergies As of Date: 09/24/2024 (No Known Allergies) Date Reviewed: 11/20/2023 Reviewed by: Bharat Perez, INEZ - Fully Assessed Primary Visit Diagnosis:Constipatio n, unspecified constipation type [K59.00] Other Visit Diagnosis:Change in bowel habits [R19.4] Order(s):COLONOSCOPY DIAGNOSTIC [GI11] Order #: [id number] FUTURE Prescriptions as of 09/24/2024 - levothyroxine (TIROSINT) 37.5 mcg capsule Take 37.5 mcg by mouth daily before breakfast. - oxybutynin ER (DITROPAN XL) 10 mg 24 hr tablet Take 20 mg by mouth once daily. - Amoxicillin 500 mg tablet Take 500 mg by mouth two times a day. Problem List As Of Date: 09/24/2024 (None) Encounter Status:Closed by STERLING YOUSSEF on 09/24/24 [facility] CNPNon 06-17-2024 CNPN Telephone (AGGASTACC ) MAXIMILIAN WALKER ([id number]) 4 F Date Time Provider Department 06/17/24 [facility] During your visit today, we recorded the following information about you: Dayna Osman 06/17/2024 2:57 PM Signed Pt. Update 06.17.24- 1st gastro call left message Note: consult gastro. chronic constipation unspecified type Allergies As of Date: 06/17/2024 (No Known Allergies) Date Reviewed: 11/20/2023 Reviewed by: Bharat Perez RN - Fully Assessed Reason for Visit: Patient Update [1234] Prescriptions as of 06/17/2024 - levothyroxine (TIROSINT) 37.5 mcg capsule Take 37.5 mcg by mouth daily before breakfast. - oxybutynin ER (DITROPAN XL) 10 mg 24 hr tablet Take 20 mg by mouth once daily. - Amoxicillin 500 mg tablet Take 500 mg by mouth two times a day. Problem List As Of Date: 06/17/2024 (None) Encounter Status:Closed by DAYNA OSMAN on 06/17/24 [facility] ACTHon 01-02-2024 Corticotropin (P) [Mass/Vol] 16.9 pg/mL 7.2 - 63.3 pg/mL [facility] Interpretation and review of laboratory results Normal [facility] B12/Folateon 01-02-2024 Cobalamin (Vitamin B12) [Mass/Vol] 539 pg/mL 193 - 986 pg/mL [facility] Folate [Mass/Vol] 12.4 ng/mL 3.1 - 17.5 ng/mL [facility] Comment on above: Deficient <2.2 Borderline 2.2 - 3.0 Excessive >17.5 Interpretation and review of laboratory results Normal [facility] Office Visiton 09-21-2023 Follow-up visit [id number] Maximilian Walker 2000 F Date Provider Department Center 09/21/2023 FRANCHESKA CURIELISTA [facility] None No family history on file Level of Service:62421 ID OFFICE/OUTPT VISIT,PROCEDURE ONLY Reason for Visit and Comments: Facial pressure [Other] - Pt states she has pain and pressure in the back of her head. Pt states it is tender to touch. Normal [facility] Progress Noteon 09-21-2023 Progress Note Pt verified by name and . Normal [facility] Progress Note [facility] [address] [place] [id number] Dept: [phone] Dept Loc: [phone] Subjective Maximilian Walker is a 23 y.o. year old female who presents to the office with the following complaint(s): Chief Complaint Patient presents with Facial pressure Pt states she has pain and pressure in the back of her head. Pt states it is tender to touch. HPI Patient presents urgent care today with complaints of head pain. Patient states there is a spot to the back of her head that has been causing pain for 1 week and causes pain with palpation. Patient states that she has had some intermittent dizziness, headaches, and lightheadedness but expresses she is not sure when she has had the symptoms. Patient states that the area to the back of her head is tender to touch-denying any injury. Patient expresses concern and would like to have area evaluated. Review of Systems Constitutional: Positive for activity change. Eyes: Negative for visual disturbance. Respiratory: Negative for shortness of breath. Cardiovascular: Negative for chest pain. Allergic/Immunologic: Negative for environmental allergies and food allergies. Neurological: Positive for dizziness, light-headedness and headaches. Intermittent- no specific activity makes it noticeable. No Known Allergies History reviewed. No pertinent past medical history. History reviewed. No pertinent surgical history. No family history on file. Social History Socioeconomic History Marital status: Tobacco Use Smoking status: Never Smokeless tobacco: Never Vaping Use Vaping Use: Never used Substance and Sexual Activity Alcohol use: Yes Drug use: Never Current Outpatient Medications on File Prior to Visit Medication Sig Dispense Refill amoxicillin (Amoxil) 500 MG capsule TAKE 1 CAPSULE TWICE A DAY DIRECTED levothyroxine (Synthroid, Levoxyl) 75 MCG tablet TAKE 0.5 (ONE-HALF) TABLET (37.5 MCG TOTAL) BY MOUTH ONCE DAILY . oxybutynin XL (Ditropan-XL) 10 MG 24 hr tablet No current facility-administered medications on file prior to visit. Objective BP 131/86 Pulse 55 Temp 36.7 ?C (98 ?F) Ht 5' 4 (1.626 m) Wt 145 lb (65.8 kg) SpO2 99% BMI 24.89 kg/m? Physical Exam Vitals and nursing note reviewed. Constitutional: General: She is not in acute distress. Appearance: Normal appearance. She is normal weight. She is not ill-appearing, toxic-appearing or diaphoretic. HENT: Head: Normocephalic. Nose: Nose normal. Mouth/Throat: Mouth: Mucous membranes are moist. Eyes: Pupils: Pupils are equal, round, and reactive to light. Pulmonary: Effort: Pulmonary effort is normal. No respiratory distress. Abdominal: General: Abdomen is flat. Skin: General: Skin is warm and dry. Neurological: General: No focal deficit present. Mental Status: She is alert and oriented to person, place, and time. Mental status is at baseline. Psychiatric: Mood and Affect: Mood normal. Behavior: Behavior normal. Thought Content: Thought content normal. Judgment: Judgment normal. Assessment: 1. Occipital pain Maximilian was seen today for facial pressure. Diagnoses and all orders for this visit: Occipital pain (Primary) After talking with patient-there does not appear to be any redness from possible cellulitis/folliculit is/cyst-no swelling noted either. I explained to patient that I am able to elicit tenderness with palpation but there is no other findings. Imaging discussed with patient. After talking with patient-given the patient's chief complaint, clinical presentation and limited resources at this facility- the patient was referred to the Emergency Department for further work up. The patient's medical needs exceed the level of diagnostic testing and treatment that can be provided at this facility- a higher level of care recommended. Patient comfortable taking self to the emergency department- patient is alert and oriented x4, speech is clear coherent, and has an upright and steady gait. VS stable (Please note that portions of this note may have been completed with a voice recognition program. Efforts were made to edit the dictations but occasionally words aremis-transcribed.) Sarah Ramos APRN-ALUM PLANT SUPERVISOR 09/21/23 Normal [facility] Vitamin D, Total, 25-OHon 25-hydroxyvitamin D [Mass/Vol] 35 ng/mL 30 - 100 ng/mL [facility] Comment on above: Vitamin D status: Deficiency: <20 ng/mL Insufficiency: 20-30 ng/mL Sufficiency: 30-100 ng/mL Toxicity: >100 ng/mL Please note that Fluorescein which is used in angiography has been shown to falsely elevate the results of Vitamin D with our current assay. Evidence suggests that patients undergoing fluorescein dye angiography can retain small amounts of fluorescein in the body for up to 48 to 72 hours post-treatment. In the cases of patients with renal insufficiency, retention could be much longer. Samples should be resubmitted post fluorescein clearance to ensure there is no interference with the Vitamin D test result. Interpretation and review of laboratory results Normal [facility] Assay performed deedee Gonzalez's chemiluminescence methodology. [facility] TSH,REFLEX FREE T4on 021 TSH,REFLEX FREE T4 2.260 uIU/ML Normal 0.46-4.68 [facility] Comment on above: Result Comment: Test ing performed at [place] [address] Performed By: #### R TSH #### [place] [address] TSHon 06-27-2020 TSH 0.889 uIU/ML Normal 0.46-4.68 [facility] TSH,REFLEX FREE T4on 020 TSH,REFLEX FREE T4 0.290 uIU/ML Low 0.46-4.68 [facility] Comment on above: Result Comment: Test ing performed at [place] [address] Performed By: #### R TSH #### Testing performed at [address] [address] Fluoroscopy Barium Enema Air Contraston 09-09-2019 1. Somewhat decompressed caliber of the rectosigmoid colon in the latter images of the double-contrast examination. 2. Normal caliber rectosigmoid colon during live fluoroscopic evaluation of single-contrast barium enema. [employer] Workstation ID: [id number] [facility] EXAMINATION: XR BARIUM ENEMA WITH AIR HISTORY: ORDERING SYSTEM PROVIDED HISTORY: Constipation, unspecified constipation type, TECHNOLOGIST PROVIDED HISTORY: Illness/Other Reason for exam: Contsipation and abdomen pain x12 months Encounter Type: Initial Additional signs and symptoms: Lower abdominal pressure into lower chest pt states uses laxatives regularly to have a bm Fluoro dose in mGy: 0 ORDERING SYSTEM PROVIDED DIAGNOSIS CODES: K59.00 Constipation, unspecified constipation type COMPARISON: None. TECHNIQUE: Barium and air was introduced per rectum in a retrograde fashion. Fluoroscopic time measures 2 minutes 29 seconds. 29 images were obtained. FINDINGS: Single-contrast barium enema: There is good opacification of the colon extending to the rectum during live fluoroscopic examination. Sigmoid colon is tortuous. Overall colon demonstrates normal caliber. Double contrast barium enema: There is good distention and coating of the colon. Initial images demonstrate a normal caliber rectosigmoid colon. However, latter images demonstrate somewhat decompressed caliber of the rectosigmoid colon relative to the remaining portion of the colon. The right colon and transverse colon appear dilated. No gross constricting lesions or extrinsic mass effect. Patient unable to optimally evacuate for postprocedure imaging. No gross fistula is identified. [facility] Interface, Rad In [employer] - 09/09/2019 7:39 PM EDT EXAMINATION: XR BARIUM ENEMA WITH AIR HISTORY: ORDERING SYSTEM PROVIDED HISTORY: Constipation, unspecified constipation type, TECHNOLOGIST PROVIDED HISTORY: Illness/Other Reason for exam: Contsipation and abdomen pain x12 months Encounter Type: Initial Additional signs and symptoms: Lower abdominal pressure into lower chest pt states uses laxatives regularly to have a bm Fluoro dose in mGy: 0 ORDERING SYSTEM PROVIDED DIAGNOSIS CODES: K59.00 Constipation, unspecified constipation type COMPARISON: None. TECHNIQUE: Barium and air was introduced per rectum in a retrograde fashion. Fluoroscopic time measures 2 minutes 29 seconds. 29 images were obtained. FINDINGS: Single-contrast barium enema: There is good opacification of the colon extending to the rectum during live fluoroscopic examination. Sigmoid colon is tortuous. Overall colon demonstrates normal caliber. Double contrast barium enema: There is good distention and coating of the colon. Initial images demonstrate a normal caliber rectosigmoid colon. However, latter images demonstrate somewhat decompressed caliber of the rectosigmoid colon relative to the remaining portion of the colon. The right colon and transverse colon appear dilated. No gross constricting lesions or extrinsic mass effect. Patient unable to optimally evacuate for postprocedure imaging. No gross fistula is identified. IMPRESSION: 1. Somewhat decompressed caliber of the rectosigmoid colon in the latter images of the double-contrast examination. 2. Normal caliber rectosigmoid colon during live fluoroscopic evaluation of single-contrast barium enema. [employer] Workstation ID: [id number] [facility] ABDOMEN 1 VIEWon 08-10-2019 ABDOMEN 1 VIEW PROCEDURE: ABDOMEN 1 VIEW CLINICAL HISTORY: 19 yo with constipation, eval colon size and fecal load IMPRESSION: Moderate amount of stool is seen in the right and transverse colon. Nondilated eft colon with nonobstructive bowel gas pattern. There is no free air or abnormal calcifications. Lung bases are clear. This report has been created using voice recognition software Signed by: Dr. Chencho Howard at 08/10/2019 16:[address] [facility] Progress Noteon 08-10-2019 Extraction Operator Authentication Interface Message Text Pediatric Gastroenterology Consult Note - [facility] Date of Visit: 08/10/2019 Maximilian Walker is here for consultation at the request of Ewelina Green APRN-CNP for: Abdominal Pain and Constipation Communication regarding this patient will be sent back to the referring provider. History of Present Illness Maximilian Walker is a 19 y.o. female with a PMH significant for hypothyroidism and vesico-ureteral reflux s/p surgical intervention who is being seen in the Pediatric GI Clinic for evaluation of abdominal pain and constipation. According to the family, GI symptoms have been present for since the first year of life. The patient has experienced constipation off and on. The patient was previously seen by Peds GI at [facility] in the elementary years. She was treated with Miralax. An MRI of the lumbar spine was unremarkable. The patient was seen by the PCP most recently. Blood tests as listed below were normal. The thyroid tests have been stable with the Marketing Development Manager. She is taking Senna and Metamucil as needed. She passes stool every 2-4 days with significant straining. The stool quality varies. She also describes bloating, eructation and flatus often. There is no hematochezia and encopresis. The patient has diffuse and pressure-type abdominal pain. Nausea: none Vomiting: none Energy levels: normal Appetite: normal Loss of weight: none Fever: none Joint pains: none Mouth sores: none Rashes: none History noncontributory Past Medical History Past Medical History: Diagnosis Date Acne vulgaris 05/16/2016 Hypothyroidism 05/16/2016 Spastic bladder 08/05/2017 Past Surgical History No past surgical history on file. Allergies No Known Allergies Medications Outpatient Encounter Medications as of 08/10/2019 Medication Sig Dispense Refill oxybutynin (DITROPAN-XL) 10 MG CR tablet Take 10 mg by mouth daily sulfamethoxazole-trim ethoprim (BACTRIM DS) 800-160 MG per tablet Take by mouth every 16 hours SYNTHROID 75 MCG tablet 75 mcg Bisacodyl (LAXATIVE PO) Take by mouth polyethylene glycol (GLYCOLAX) packet Take 2.9 g by mouth daily polyethylene glycol (MIRALAX;GLYCOLAX) powder Take 17 g by mouth daily Mix in 8 ounces of fluid. (Patient not taking: Reported on 08/10/2019) 850 g 0 No facility-administered encounter medications on file as of 08/10/2019. Family Medical History Family History Problem Relation Age of Onset Gallbladder Disease Mother Irritable Bowel Syndrome Mother Thyroid Disease Mother Gastroesophageal reflux Brother Anesth Problems Neg Hx Bleeding Prob Neg Hx Blood Disorders Neg Hx Cancer Neg Hx Celiac Disease Neg Hx Colon Cancer Neg Hx Colon Polyps Neg Hx Constipation Neg Hx Crohn's Disease Neg Hx Cystic Fibrosis Neg Hx Eosinophilic Esophagitis Neg Hx Hirschsprung's disease Neg Hx Kidney Disease Neg Hx Liver Disease Neg Hx Pancreatic Disease Neg Hx Lupus Neg Hx Stomach Ulcer(s) Neg Hx Ulcerative Colitis Neg Hx Social History Social History Socioeconomic History Marital status: Unknown Spouse name: None Number of children: None Years of education: None Highest education level: None Occupational History None Social Needs Financial resource strain: None Food insecurity: Worry: None Inability: None Transportation needs: Medical: None Non-medical: None Tobacco Use Smoking status: Never Smoker Smokeless tobacco: Never Used Substance and Sexual Activity Alcohol use: Never Frequency: Never Drug use: Never Sexual activity: None Lifestyle Physical activity: Days per week: None Minutes per session: None Stress: None Relationships Social connections: Talks on phone: None Gets together: None Attends methodist service: None Active member of club or organization: None Attends meetings of clubs or organizations: None Relationship status: None Intimate partner violence: Fear of current or ex partner: None Emotionally abused: None Physically abused: None Forced sexual activity: None Other Topics Concern None Social History Narrative None Diet Social History Water source for child? [place] Review of Systems Review of Systems Constitutional: Negative. HENT: Negative. Eyes: Negative. Respiratory: Negative. Cardiovascular: Negative. Endocrine: negative Gastrointestinal: Per HPI Genitourinary: Negative. Neurological: Negative. Musculoskeletal: Negative. Skin: Negative. Allergy/Immune: allergic/immunologic negative Hematology: Negative. Physical Examination Vitals: 08/10/19 1452 BP: 107/55 Pulse: 63 BP Readings from Last 2 Encounters: 08/10/19 107/55 (35 %, Z = -0.38 / 12 %, Z = -1.17)* 12/05/18 94/54 (4 %, Z = -1.70 / 11 %, Z = -1.23)* *BP percentiles are based on the June 2017 AAP Clinical Practice Guideline for girls Weight - Scale: 69.6 kg Height: 162.5 cm Body mass index is 26.36 kg/m . Physical Exam Constitutional: She appears well-nourished. HENT: Mouth/Throat: Her mucous membranes are moist. Her oropharynx is clear. Eyes: Her conjunctivae are normal. Neck: She's normal range of motion. Cardiovascular: Normal rate and regular rhythm. No murmur heard. Pulmonary/Chest: Breath sounds normal. Abdominal: She exhibits no distension. Bowel sounds are normal. There is no tenderness. There is no CVA tenderness present.She displays no guarding in her abdomen. Musculoskeletal: Normal range of motion. Neurological: She is alert. She has normal strength. Skin: Skin is warm and dry. Lab Results Component Latest Ref Rng & Units 08/06/2019 08/06/2019 08/06/2019 3:26 PM 3:26 PM 3:26 PM C-Reactive Protein 0.0 - 1.0 mg/dL <0.5 Immunoglobulin A 61 - 348 mg/dL 144 Transglutaminase IgA 0.00 - 20.00 Units <20.00 Component Latest Ref Rng & Units 08/06/2019 08/06/2019 08/06/2019 08/06/2019 3:26 PM 3:26 PM 3:26 PM 3:26 PM WBC 4.5 - 13.0 10E9/L 6.6 Nucleated RBC Percent -1.0 - 0.0 % 0.0 RBC 4.10 - 4.80 10E12/L 4.36 Hemoglobin 12.0 - 15.0 g/dl 13.2 Hematocrit 37.0 - 46.0 % 41.1 MCV 78.0 - 96.0 fl 94.3 MCH 25.0 - 35.0 pg 30.3 MCHC 31.0 - 37.0 % 32.1 RDW 0.0 - 14.4 % 12.9 Platelets 150 - 450 10E9/L 218 MPV fl 12.0 Differential Complete NA Automated % Neutrophils 34.0 - 64.0 % 64.6 (H) % Lymphocytes 25.0 - 45.0 % 26.3 % Monocytes 3.00 - 6.00 % 8.50 (H) % Eosinophils 0.00 - 3.00 % 0.00 Basophils 0.00 - 1.00 % 0.30 Neutrophil # 10E3/uL 4.2 % Immature Granulocyte % 0.30 Sodium 133 - 145 mEq/L 141 Potassium 3.3 - 5.1 mEq/L 3.6 Chloride 96 - 108 mEq/L 102 Carbon Dioxide 22.0 - 29.0 mEq/L 25.8 BUN 4 - 19 mg/dL 11 Glucose 70 - 99 mg/dL 76 Total Bilirubin 0.0 - 1.0 mg/dl 0.8 AST 0 - 31 U/L 22 ALT 0 - 31 U/L 21 Alkaline Phosphatase 47 - 119 U/L 50 Calcium 7.6 - 11.0 mg/dL 9.9 Protein, Total 5.9 - 8.4 g/dL 7.7 Albumin 3.2 - 4.5 g/dL 5.0 (H) Creatinine 0.50 - 1.00 mg/dL 0.91 Lipase 16 - 63 U/L 25 Bilirubin, Conjugated 0.0 - 0.7 mg/dL 0.1 LUMBAR SPINE NO CONTRAST - MRI08/20/2008 [facility] Result Impression mml/Dictated: 08/20/08 1601 MRI LUMBAR SPINE (WITHOUT CONTRAST)-08/20/08 AT 1530 HOURS CLINICAL HISTORY: Dysfunctional urinary voiding. Vesicoureteral reflux. Tethered spinal cord. TECHNIQUE: No sedation required or employed. Sagittal and axial T1 and T2 images as well as coronal fat saturated T2 images were obtained of the lumbosacral spine. COMPARISON: No comparison studies. FINDINGS: Vertebrae and disc spaces are normal in appearance and alignment. Conus appears normal, terminating at the L1 level. No findings to indicate a tethered spinal cord. Images of both kidneys reveal no abnormalities. IMPRESSION: Normal lumbar spine MRI scan. Final Radiologist: Carlos Aly MD Verified By: Carlos Aly MD 08/20/08 10:57 pm Transcribed by: CHELY 08/20/08 5:27 pm Assessment Patient Active Problem List Diagnosis BMI (body mass index), pediatric, 85% to less than 95% for age Acne vulgaris Spastic bladder Hypothyroidism, acquired, autoimmune Constipation Chronic abdominal pain Maximilian Walker is a 19 y.o. female with a PMH significant for hypothyroidism and vesico-ureteral reflux s/p surgical intervention referred to Pediatric GI for abdominal pain and constipation. The symptoms have been present since infancy, but the constipation can be very severe. The patient also has frequent abdominal pain, bloating and flatus. The evaluation thus far has been unremarkable. The DDx includes: constipation, celiac disease, disaccharidase deficiency, GI infection, Irritable Bowel syndrome and Inflammatory Bowel Disease. We will plan to proceed with further evaluation at this time. Worrisome signs and symptoms explained and the family expressed good understanding. Plan We made the following plan with the family today which was reviewed in detail during the visit: 1) Proceed with the X ray today 2) We have ordered the Barium Enema -It can be performed here or at your local hospital 3) Continue the Senna - 2 tablets daily and Fiber supplement 3) Colon Clean-Out: Give 2 Senna tablets. Then give 10 capfuls of Miralax mixed with 48 ounces of clear fluid. Drink this all within 2-3 hours. Afterwards give 2 more Senna tablets. Repeat the next day if minimal results. Orders Placed This Encounter Procedures X-Ray Abdomen 1 View FL Colon Requested Prescriptions No prescriptions requested or ordered in this encounter Return in about 11 weeks (around 10/26/2019) for with GI in [place]. An After Visit Summary was provided to the family at completion of the visit. Jenn Resendiz MD Pediatric Gastroenterology Normal [facility] Transglutaminase IgAon 08-08 Transglutaminase IgA <20.00 Normal 0.00-20.00 [facility] Comment on above: Result Comment: Negative: < 20 Units Weak Positive: 20-30 Units Moderate to Strong Positive: > 30 Units Performed By: #### T RGLA #### [place] [address] Immunoglobulin Aon 9 Immunoglobulin A 144 mg/dL Normal 61-[address] [facility] Comment on above: Performed By: #### I GA #### [place] [address] Bili,Conjugatedon 08-06-2019 Bili,Conjugated 0.1 mg/dL Normal 0.0-0.[address] [facility] Comment on above: Performed By: #### D BILI #### [place] [address] C-Reactive Proteinon 019 CRP [Mass/Vol] mg/L Normal 0.0-1.[address] [facility] Comment on above: Result Comment: CRP determinations in neonates should be interpreted with caution. CRP may be elevated in circumstances not associated with inflammation (e.g. difficult delivery, pneumothorax). In premature neonates CRP levels may not rise to abnormal levels even if sepsis is present; some speculate that immature liver function decreases the ability to generate a CRP response. Performed By: #### C RP #### [place] [address] Comp Metabolic Panelon 08-06 Albumin [Mass/Vol] 5.0 g/dL High 3.2-4.[address] [facility] Comment on above: Performed By: #### C MP #### [address] [address] ALP [Catalytic activity/Vol] 50 U/L Normal 47-[address] [facility] Comment on above: Performed By: #### C MP #### [address] [address] ALT [Catalytic activity/Vol] 21 U/L Normal 0-[address] [facility] Comment on above: Performed By: #### C MP #### [address] [address] AST [Catalytic activity/Vol] 22 U/L Normal 0-[address] [facility] Comment on above: Performed By: #### C MP #### [address] [address] Bili,Total 0.8 mg/dl Normal 0.0-1.[address] [facility] Comment on above: Result Comment: Premature : 1 Day 1.0-6.0 mg/dl 2 Day 6.0-8.0 mg/dl 3-5 Day 10.0-15.0 mg/dl Performed By: #### C MP #### [address] [address] Calcium [Mass/Vol] 9.9 mg/dL Normal 7.6-11.[address] [facility] Comment on above: Performed By: #### C MP #### [address] [address] Chloride [Moles/Vol] 102 mmol/L Normal 96-108 [facility] Comment on above: Performed By: #### C MP #### [facility] [address] [address] CO2 [Moles/Vol] 25.8 mmol/L Normal 22.0-29.[address] [facility] Comment on above: Performed By: #### C MP #### [address] [address] Creatinine [Mass/Vol] 0.91 mg/dL Normal 0.50-1.[address] [facility] Comment on above: Result Comment: Premature 0.3-1.0 mg/dL Performed By: #### C MP #### [address] [address] Glucose [Mass/Vol] 76 mg/dL Normal 70-[address] [facility] Comment on above: Result Comment: Criteria for Diagnosis of Diabetes(Effective 04/30/11): Fasting specimen (no caloric intake for at least 8 hours). <100 mg/dl Normal 100-125 mg/dl Increased Risk for Diabetes >125 mg/dl Diagnostic for Diabetes Random Glucose (any time of day without regard to last meal). >=200 mg/dl plus Classic Symptoms of Diabetes Performed By: #### C MP #### [place] [address] Potassium [Moles/Vol] 3.6 mmol/L Normal 3.3-5.[address] [facility] Comment on above: Performed By: #### C MP #### [address] [address] Protein [Mass/Vol] 7.7 g/dL Normal 5.9-8.[address] [facility] Comment on above: Performed By: #### C MP #### [address] [address] Sodium [Moles/Vol] 141 mmol/L Normal 133-[address] [facility] Comment on above: Performed By: #### C MP #### [address] [address] Urea nitrogen [Mass/Vol] 11 mg/dL Normal 4-[address] [facility] Comment on above: Performed By: #### C MP #### [address] [place] [address] Complete Blood Counton 08-06 Differential Complete Automated Normal [facility] Comment on above: Performed By: #### C BC #### [address] [address] Basophils/100 WBC (Bld) 0.30 % Normal 0.00-1.[address] [facility] Comment on above: Performed By: #### C BC #### [address] [address] Eosinophils/100 WBC (Bld) 0.00 % Normal 0.00-3.[address] [facility] Comment on above: Performed By: #### C BC #### [address] [address] Erythrocyte distribution width (RBC) [Ratio] 12.9 % Normal 0.0-14.[address] [facility] Comment on above: Performed By: #### C BC #### [address] [address] Hematocrit (Bld) [Volume fraction] 41.1 % Normal 37.0-46.[address] [facility] Comment on above: Performed By: #### C BC #### [address] [address] Hemoglobin (Bld) [Mass/Vol] 13.2 g/dL Normal 12.0-15.[address] [facility] Comment on above: Performed By: #### C BC #### [address] [address] Immature granulocytes/100 WBC (Bld) 0.30 % Normal [facility] Comment on above: Result Comment: Angela ture Granulocyte Percent includes promyelocytes, myelocytes, and metamyelocytes. IG% > 1.0 indicates a left shift is present. With automated differentials, bands are included in the neutrophil count and not in the Immature Granulocyte Percent. Performed By: #### C BC #### [address] [address] Lymphocytes/100 WBC (Bld) 26.3 % Normal 25.0-45.[address] [facility] Comment on above: Performed By: #### C BC #### [address] [address] MCH (RBC) [Entitic mass] 30.3 pg Normal 25.0-35.[address] [facility] Comment on above: Performed By: #### C BC #### [address] [address] MCHC (RBC) [Mass/Vol] 32.1 % Normal 31.0-37.[address] [facility] Comment on above: Performed By: #### C BC #### [address] [address] MCV (RBC) [Entitic vol] 94.3 fL Normal 78.0-96.[address] [facility] Comment on above: Performed By: #### C BC #### [address] [address] Monocytes/100 WBC (Bld) 8.50 % High 3.00-6.[address] [facility] Comment on above: Performed By: #### C BC #### [address] [address] Neutrophils (Bld) [#/Vol] 4.2 10*3/uL Normal [facility] Comment on above: Performed By: #### C BC #### [address] [address] Neutrophils/100 WBC (Bld) 64.6 % High 34.0-64.[address] [facility] Comment on above: Performed By: #### C BC #### [address] [place], [place] [id number] Nucleated RBC/100 WBC (Bld) [Ratio] 0.0 % Normal -1.0-0.[address] [facility] Comment on above: Performed By: #### C BC #### [address] [id number] Platelet mean volume (Bld) [Entitic vol] 12.0 fL Normal [facility] Comment on above: Result Comment: MPV is platelet range and age dependent Performed By: #### C BC #### [address] [address] Platelets (Bld) [#/Vol] 218 10*3/uL Normal 150-[address] [facility] Comment on above: Performed By: #### C BC #### [address] [address] RBC (Bld) [#/Vol] 4.36 10E12/L Normal 4.10-4.[address] [facility] Comment on above: Performed By: #### C BC #### [address] [address] WBC (Bld) [#/Vol] 6.6 10*3/uL Normal 4.5-13.[address] [facility] Comment on above: Performed By: #### C BC #### [address] [address] Lipaseon 08-06-2019 Lipase [Catalytic activity/Vol] 25 U/L Normal 16-[address] [facility] Comment on above: Performed By: #### L IPAS #### [address] [address] Progress Noteon 08-06-2019 Extraction Operator Authentication Interface Message Text Patient ID: Maximilian Walker is a 19 y.o. female. Her chief complaint(s) include: Constipation (c/o constipation continues) Assessment 1. Constipation, unspecified constipation type 2. Chronic abdominal pain Plan Maximilian was seen today for constipation. Diagnoses and all orders for this visit: Constipation, unspecified constipation type - C-reactive protein; Future - Immunoglobulin A; Future - Transglutaminase IgA; Future - Complete Blood Count; Future - Lipase; Future - Cancel: Hepatic function panel; Future - Comprehensive metabolic panel; Future - Referral to Gastroenterology; Future - phosphate (FLEET) 7-19 GM/118ML enema; Place 118 mL rectally once for 1 dose - polyethylene glycol (MIRALAX;GLYCOLAX) powder; Take 17 g by mouth daily Mix in 8 ounces of fluid. Chronic abdominal pain - C-reactive protein; Future - Immunoglobulin A; Future - Transglutaminase IgA; Future - Complete Blood Count; Future - Lipase; Future - Cancel: Hepatic function panel; Future - Comprehensive metabolic panel; Future - Referral to Gastroenterology; Future - phosphate (FLEET) 7-19 GM/118ML enema; Place 118 mL rectally once for 1 dose - polyethylene glycol (MIRALAX;GLYCOLAX) powder; Take 17 g by mouth daily Mix in 8 ounces of fluid. Return if symptoms worsen or fail to improve. Subjective She is accompanied by her mother. No foreign language professor was used. Constipation (Since infancy per mother.). The timing is frequent. The patient's symptoms include: infrequent stools, painful bowel movements, hard stools, small stools, retentive posturing and fecal impaction. Frequency of current symptoms has been 4 times a week. (Variable) The symptoms are described as severe. Exacerbating factors: n/a. Stool frequency has been 2 per week. Maximilian's last stool was today. Preceding events have included none. Previous interventions have included glycerin suppositories, dietary changes, digital disimpaction, Miralax and laxatives. The associated symptoms include: abdominal pain, distension and perianal pain. The associated symptoms include: no decreased appetite, no nausea, no vomiting, no fecal soiling and no rectal bleeding. Pertinent medical history includes hypothyroidism (has sacral dimple). Previous evaluations include thyroid stimulating hormone. (Hypothroid) Review of Systems Gastrointestinal: Positive for constipation. Objective Vital Signs 08/06/19 1433 Weight: 69.7 kg There is no height or weight on file to calculate BMI. Physical Exam Nursing note reviewed. Constitutional: She appears well. She is active. No distress. HENT: Head: Atraumatic. Right Ear: Tympanic membrane normal. Left Ear: Tympanic membrane normal. Mouth/Throat: Mucous membranes are moist. Eyes: Conjunctivae are normal. Neck: Normal range of motion. Neck supple. Thyroid normal. No neck rigidity or neck adenopathy. Cardiovascular: Normal rate, regular rhythm, S1 normal and S2 normal. Pulses are strong and palpable. Heart murmur not heard. No murmur lying down or standing. Pulmonary/Chest: Effort normal and breath sounds normal. There is normal air entry. Abdominal: Scaphoid and soft. Bowel sounds are normal. She exhibits no distension and no mass. There is no hepatosplenomegaly. There is no tenderness. There is no rebound and no guarding. No hernia. Hernia confirmed negative in the umbilical area (Finger Breadth is <1). Neurological: She is alert. Skin: Capillary refill takes less than 3 seconds. No lesion, no petechiae, no purpura and no rash noted. She is not diaphoretic. There is no jaundice, cyanosis or pallor. Skin is warm. Vitals reviewed: Weight 69.[address] [facility] Progress Noteon 12-05-2018 Extraction Operator Authentication Interface Message Text Maximilian Walker is a 18 y.o. female patient. Behavioral/Emotional Assessment w Score - PHQ-9 Performed by: Ewelina Green APRN-CNP Authorized by: Ewelina Green APRN-CNP PHQ-9 See PHQ9 Flowsheet Electronically signed by: JOSE Arthur Normal [facility] Extraction Operator Authentication Interface Message Text Patient ID: Maximilian Walker is a 18 y.o. female. Her chief complaint(s) include: 18 YEAR WELL CHILD Assessment 1. Encounter for routine child health examination without abnormal findings 2. Spastic bladder 3. Exercise counseling 4. Encounter for dietary counseling and surveillance 5. Need for vaccination Plan Maximilian was seen today for 18 year well child. Diagnoses and all orders for this visit: Encounter for routine child health examination without abnormal findings - Behavioral/Emotional Assessment w Score - PHQ-9 Spastic bladder - oxybutynin (DITROPAN-XL) 10 MG CR tablet; Take 2 Tabs (20 mg) by mouth daily for 30 days Exercise counseling Encounter for dietary counseling and surveillance Need for vaccination - Hepatitis A vaccine (PED/ADOL <= 18y) - Meningococcal conjugate ACWY vaccine (MENACTRA) Return in about 1 year (around 12/05/2019) for well check. Subjective She is accompanied by her mother. 18 YEAR WELL CHILD Home: Maximilian eats meals with family, has an adult to turn to for help and is permitted and able to make independent decisions. Maximilian has no home risk identified. Education: She Is in 10th grade and is doing well. Eating: Maximilian eats regular meals including fruits and vegetables. Activities & Sports: She has friends, participates in episcopal activities ([employer] - father is Elder) and participates in clubs. Safety: She has a violence free home. She has no safety risk identified. Suicidality: She has ways to cope with stress and displays self-confidence. She has no problems with sleep, has no depression and has no anxiety. Menstruation Menstruation: regular periods Output Urine and Stool Pattern: Urine and Stool Pattern: Normal stool pattern, normal urine pattern. (With Ditropan 20 mg - spastic bladder Urology follows) Sleep Sleeping Difficulty: no difficulty sleeping Teen Anticipatory Guidance The following anticipatory guidance was reviewed during the visit: Nutrition: limit junk food/fast food and soft drinks. Safety: home safety. Social: explore heritage and cultural diversity. Health: age appropriate sleep habits, puberty/sexual development/contracep tions/STDs, talk with trusted adult if feeling sad or nervous, learn to manage time and activities, be responsible for attendance/ homework/ course selection, learn about self and strengths and recognize and deal with stress. Screenings Previous Vaccine Reactions: No. Hyperlipidemia Concerns: Negative Hyperlipidemia Screen Concerns: no Hyperlipidemia Risk Factors Primary Care Review of Systems Objective Vital Signs 12/05/18 0952 BP: 94/54 Pulse: 68 Resp: 16 Temp: 37.5 C (99.5 F) TempSrc: Temporal Weight: 70 kg Height: 161.5 cm Body mass index is 26.84 kg/m . Physical Exam Nursing note reviewed. Constitutional: She appears well. She is active. No distress. HENT: Head: Atraumatic. Right Ear: Tympanic membrane and external ear normal. Left Ear: Tympanic membrane and external ear normal. Nose: Nose normal. Mouth/Throat: Mucous membranes are moist. Dentition is normal. Oropharynx is clear. Eyes: Conjunctivae and EOM are normal. Pupils are equal, round, and reactive to light. Neck: Normal range of motion. Neck supple. Thyroid normal. No neck adenopathy. Cardiovascular: Normal rate, regular rhythm, S1 normal and S2 normal. Pulses are palpable. Heart murmur not heard. No murmur lying down or standing. Pulmonary/Chest: Effort normal and breath sounds normal. No respiratory distress. Abdominal: Soft. Bowel sounds are normal. She exhibits no distension and no mass. There is no tenderness. Musculoskeletal: Normal range of motion. No pain, swelling, or limited range of motion at any joint. She exhibits no deformity. Back: She exhibits no scoliosis. History of idiopathic scoliosis; not observed today Neurological: She is alert. She has normal strength and normal reflexes. No cranial nerve deficit. She exhibits normal muscle tone. Coordination and gait normal. Skin: No rash noted. No cyanosis. No pallor. Skin is warm and dry. Normal [facility] Free T4on 08-25-2018 T4 free mass conc 1.0 ng/dL Normal 0.7-2.1 [facility] TSHon 08-25-2018 Thyrotropin Qn 1.946 uIU/mL Normal 0.4-4.0 [facility] Free T4on 10-09-2017 T4 free mass conc 0.8 ng/dL Normal 0.7-2.1 [facility] TSHon 10-09-2017 Thyrotropin Qn 1.088 uIU/mL Normal 0.4-4.0 [facility] Vitamin D 25 Hydroxyon 10-09 Vitamin D 25 Hydroxy 31 ng/mL Normal 30-120 [facility] Comment on above: Result Comment: Effe ctive April 10, 2017, Vitamin D results are generated off a re-standardized assay which may result in lower results, especially for values >50 ng/mL. Please contact Laboratory Client Services at with any questions. Vital Signs Date Time Vital Sign Value Performing Clinician Telly odom 07-23-2025 07:14-0400 Body mass index (BMI) [Ratio] 29.35 kg/m2 Cristine Islas APRN.[facility] Work Phone: [facility] 07-23-2025 07:14-0400 Body weight 77.56 kg Cristine Islas ENVIRONMENTAL MONITORING SPECIALIST.[employer]FFIC [employer] Work Phone: [facility] 07-23-2025 07:14-0400 Diastolic blood pressure 60 mm[Hg] Cristine Islas ENVIRONMENTAL MONITORING SPECIALIST.AIR ROUTE TRAFFIC CONTROLLER Work Phone: [facility] 07-23-2025 07:14-0400 Systolic blood pressure 110 mm[Hg] Cristine Islas ENVIRONMENTAL MONITORING SPECIALIST.AIR ROUTE TRAFFIC CONTROLLER Work Phone: [facility] 06-25-2025 13:54-0400 Body mass index (BMI) [Ratio] 27.6 kg/m2 Huong Smalls MD Work Phone: [facility] 06-25-2025 13:54-0400 Body weight 72.94 kg Huong Smalls MD Work Phone: [facility] 06-25-2025 13:54-0400 Diastolic blood pressure 70 mm[Hg] Huong Smalls MD Work Phone: [facility] 06-25-2025 13:54-0400 Systolic blood pressure 110 mm[Hg] Huong Smalls MD Work Phone: [facility] 06-08-2025 14:07-0400 Body height 162.6 cm Cory Marie MD Work Phone: [facility] 06-08-2025 14:07-0400 Body mass index (BMI) [Ratio] 27.81 kg/m2 Cory Marie MD Work Phone: [facility] 06-08-2025 14:07-0400 Body weight 73.48 kg Cory Marie MD Work Phone: [facility] 06-08-2025 14:07-0400 Diastolic blood pressure 74 mm[Hg] Cory Marie MD Work Phone: [facility] 06-08-2025 14:07-0400 Heart rate 72 /min Cory Marie MD Work Phone: [facility] 06-08-2025 14:07-0400 Respiratory rate 16 /min Cory Marie MD Work Phone: [facility] 06-08-2025 14:07-0400 SaO2% (BldA) [Mass fraction] 100 % Cory Marie MD Work Phone: [facility] 06-08-2025 14:07-0400 Systolic blood pressure 116 mm[Hg] Cory Marie MD Work Phone: [facility] 05-31-2025 08:08-0400 Body mass index (BMI) [Ratio] 27.33 kg/m2 Deena Plotts ENVIRONMENTAL MONITORING SPECIALIST.CNM Work Phone: [facility] 05-31-2025 08:08-0400 Body weight 72.21 kg Deena Plotts ENVIRONMENTAL MONITORING SPECIALIST.CNM Work Phone: [facility] 05-31-2025 08:08-0400 Diastolic blood pressure 66 mm[Hg] Deena Plotts ENVIRONMENTAL MONITORING SPECIALIST.CNM Work Phone: [facility] 05-31-2025 08:08-0400 Systolic blood pressure 118 mm[Hg] Deena Plotts ENVIRONMENTAL MONITORING SPECIALIST.CNM Work Phone: [facility] 04-29-2025 09:55-0400 Body mass index (BMI) [Ratio] 26.26 kg/m2 Deena Plotts ENVIRONMENTAL MONITORING SPECIALIST.CNM Work Phone: [facility] 04-29-2025 09:55-0400 Body weight 69.4 kg Deena Plotts ENVIRONMENTAL MONITORING SPECIALIST.CNM Work Phone: [facility] 04-29-2025 09:55-0400 Diastolic blood pressure 62 mm[Hg] Deena Plotts ENVIRONMENTAL MONITORING SPECIALIST.CNM Work Phone: [facility] 04-29-2025 09:55-0400 Systolic blood pressure 102 mm[Hg] Deena Plotts ENVIRONMENTAL MONITORING SPECIALIST.CNM Work Phone: [facility] 04-01-2025 08:21-0400 Body height 162.6 cm Tiana Kendal ENVIRONMENTAL MONITORING SPECIALIST.AIR ROUTE TRAFFIC CONTROLLER Work Phone: [facility] 04-01-2025 08:21-0400 Body mass index (BMI) [Ratio] 26.43 kg/m2 Tiana Kendal ENVIRONMENTAL MONITORING SPECIALIST.AIR ROUTE TRAFFIC CONTROLLER Work Phone: [facility] 04-01-2025 08:21-0400 Body weight 69.85 kg Tiana Kendal ENVIRONMENTAL MONITORING SPECIALIST.AIR ROUTE TRAFFIC CONTROLLER Work Phone: [facility] 04-01-2025 08:21-0400 Diastolic blood pressure 58 mm[Hg] Tiana Snow Shoe ENVIRONMENTAL MONITORING SPECIALIST.AIR ROUTE TRAFFIC CONTROLLER Work Phone: [facility] 04-01-2025 08:21-0400 Systolic blood pressure 116 mm[Hg] Tiana Kendal ENVIRONMENTAL MONITORING SPECIALIST.AIR ROUTE TRAFFIC CONTROLLER Work Phone: [facility] 01-06-2025 07:19-0500 Body height 162.6 cm Marthayady Moralesham AIR ROUTE TRAFFIC CONTROLLER Work Phone: [facility] 01-06-2025 07:19-0500 Body mass index (BMI) [Ratio] 24.49 kg/m2 Wesmarta Moralesham AIR ROUTE TRAFFIC CONTROLLER Work Phone: [facility] 01-06-2025 07:19-0500 Body temperature 98.29 [degF] Marthayady Nguyễn AIR ROUTE TRAFFIC CONTROLLER Work Phone: [facility] 01-06-2025 07:19-0500 Body weight 64.73 kg Wesmarta Moralesham AIR ROUTE TRAFFIC CONTROLLER Work Phone: [facility] 01-06-2025 07:19-0500 Diastolic blood pressure 81 mm[Hg] Marthaha Nguyễn AIR ROUTE TRAFFIC CONTROLLER Work Phone: [facility] 01-06-2025 07:19-0500 Heart rate 61 /min Ramin Adrian AIR ROUTE TRAFFIC CONTROLLER Work Phone: [facility] 01-06-2025 07:19-0500 Respiratory rate 18 /min Ramin Adrian AIR ROUTE TRAFFIC CONTROLLER Work Phone: [facility] 01-06-2025 07:19-0500 SaO2% (BldA) [Mass fraction] 99 % Ramin Adrian AIR ROUTE TRAFFIC CONTROLLER Work Phone: [facility] 01-06-2025 07:19-0500 Systolic blood pressure 118 mm[Hg] Ramin Adrian AIR ROUTE TRAFFIC CONTROLLER Work Phone: [facility] 01-04-2025 14:09-0500 Body height 162.6 cm Slava Sanchez MD Work Phone: [facility] 01-04-2025 14:09-0500 Body mass index (BMI) [Ratio] 24.99 kg/m2 Slava Sanchez MD Work Phone: [facility] 01-04-2025 14:09-0500 Body weight 66.04 kg Slava Sanchez MD Work Phone: [facility] 01-04-2025 14:09-0500 Diastolic blood pressure 76 mm[Hg] Slava Sanchez MD Work Phone: [facility] 01-04-2025 14:09-0500 Systolic blood pressure 129 mm[Hg] Slava Sanchez MD Work Phone: [facility] 10-12-2024 14:02-0500 Diastolic blood pressure 71 mm[Hg] Wayne Hernández MD Work Phone: [facility] 10-12-2024 14:02-0500 Heart rate 55 /min Wayne Hernández MD Work Phone: [facility] 10-12-2024 14:02-0500 Respiratory rate 16 /min Wayne Hernández MD Work Phone: [facility] 10-12-2024 14:02-0500 SaO2% (BldA) [Mass fraction] 96 % Wayne Hernández MD Work Phone: [facility] 10-12-2024 14:02-0500 Systolic blood pressure 116 mm[Hg] Wayne Hernández MD Work Phone: [facility] 10-12-2024 13:46-0500 Body temperature 97.39 [degF] Wayne Hernández MD Work Phone: [facility] 10-12-2024 12:59-0500 Body height 162.6 cm Wayne Hernández MD Work Phone: [facility] 10-12-2024 12:59-0500 Body mass index (BMI) [Ratio] 25.4 kg/m2 Wayne Hernández MD Work Phone: [facility] 10-12-2024 12:59-0500 Body weight 67.13 kg Wayne Hernández MD Work Phone: [facility] 01-02-2024 08:31-0500 Body height 162.6 cm Ramin Adrian CNP Work Phone: [facility] 01-02-2024 08:31-0500 Body mass index (BMI) [Ratio] 24.82 kg/m2 Tabmarta Adrian CNP Work Phone: [facility] 01-02-2024 08:31-0500 Body temperature 98.29 [degF] Tabbityady Adrian CNP Work Phone: [facility] 01-02-2024 08:31-0500 Body weight 65.59 kg Tabmarta Adrian CNP Work Phone: [facility] 01-02-2024 08:31-0500 Diastolic blood pressure 67 mm[Hg] Tabbitha gNuyễn PARKER Work Phone: [facility] 01-02-2024 08:31-0500 Heart rate 54 /min Tabbityady Adrian CNP Work Phone: [facility] 01-02-2024 08:31-0500 Respiratory rate 18 /min Tabbitha Nguyễn PARKER Work Phone: [facility] 01-02-2024 08:31-0500 SaO2% (BldA) [Mass fraction] 98 % Tabmarta Adrian CNP Work Phone: [facility] 01-02-2024 08:31-0500 Systolic blood pressure 102 mm[Hg] Ramin Adrian AIR ROUTE TRAFFIC CONTROLLER Work Phone: [facility] 09-21-2023 14:50-0400 Body height 162.6 cm Sarah Lesa ENVIRONMENTAL MONITORING SPECIALIST - ALUM PLANT SUPERVISOR Work Phone: [facility] [employer] 09-21-2023 14:50-0400 Body mass index (BMI) [Ratio] 24.89 kg/m2 Sarah Lesa ENVIRONMENTAL MONITORING SPECIALIST - ALUM PLANT SUPERVISOR Work Phone: [facility] [employer] 09-21-2023 14:50-0400 Body temperature 98.01 [degF] Sarah Lesa ENVIRONMENTAL MONITORING SPECIALIST - ALUM PLANT SUPERVISOR Work Phone: [facility] [employer] 09-21-2023 14:50-0400 Body weight 65.77 kg Sarah Lesa ENVIRONMENTAL MONITORING SPECIALIST - ALUM PLANT SUPERVISOR Work Phone: [facility] [employer] 09-21-2023 14:50-0400 Diastolic blood pressure 86 mm[Hg] Sarah Lesa ENVIRONMENTAL MONITORING SPECIALIST - ALUM PLANT SUPERVISOR Work Phone: [facility] [employer] 09-21-2023 14:50-0400 Heart rate 55 /min Sarah Lesa ENVIRONMENTAL MONITORING SPECIALIST - ALUM PLANT SUPERVISOR Work Phone: [facility] [employer] 09-21-2023 14:50-0400 SaO2% (BldA) [Mass fraction] 99 % Sarah Lesa ENVIRONMENTAL MONITORING SPECIALIST - ALUM PLANT SUPERVISOR Work Phone: [facility] [employer] 09-21-2023 14:50-0400 Systolic blood pressure 131 mm[Hg] Sarah Lesa ENVIRONMENTAL MONITORING SPECIALIST - ALUM PLANT SUPERVISOR Work Phone: [facility] 06-19-2022 07:06-0400 Body height 162.6 cm Ramin Adrian AIR ROUTE TRAFFIC CONTROLLER Work Phone: [facility] 06-19-2022 07:06-0400 Body mass index (BMI) [Ratio] 23.52 kg/m2 Ramin Adrian AIR ROUTE TRAFFIC CONTROLLER Work Phone: [facility] 06-19-2022 07:06-0400 Body temperature 97.7 [degF] Marthaha Nguyễn AIR ROUTE TRAFFIC CONTROLLER Work Phone: [facility] 06-19-2022 07:06-0400 Body weight 62.14 kg Ramin Adrian AIR ROUTE TRAFFIC CONTROLLER Work Phone: [facility] 06-19-2022 07:06-0400 Diastolic blood pressure 70 mm[Hg] Tabbityady Adrian AIR ROUTE TRAFFIC CONTROLLER Work Phone: [facility] 06-19-2022 07:06-0400 Heart rate 60 /min Tabbitha Nguyễn AIR ROUTE TRAFFIC CONTROLLER Work Phone: [facility] 06-19-2022 07:06-0400 Respiratory rate 16 /min Tabbitha Nguyễn AIR ROUTE TRAFFIC CONTROLLER Work Phone: [facility] 06-19-2022 07:06-0400 SaO2% (BldA) [Mass fraction] 98 % Ramin Adrian AIR ROUTE TRAFFIC CONTROLLER Work Phone: [facility] 06-19-2022 07:06-0400 Systolic blood pressure 99 mm[Hg] Ramin Adrian AIR ROUTE TRAFFIC CONTROLLER Work Phone: [facility] Encounters Encounter Date Encounter Type Care Provider Facility Start: 11-08-2025 ambulatory Huong Hicks Facility:[facility] Start: 10-05-2025 End: 10-05-2025 ambulatory RAMIN ADRIAN Facility:[facility] Start: 10-01-2025 End: 10-01-2025 ambulatory RAMIN ADRIAN Facility:[facility] Start: 09-14-2025 End: 09-14-2025 [facility] Start: 08-24-2025 End: 08-24-2025 ambulatory TABBITHA CARLOS ADRIAN Facility:[facility] Start: 08-03-2025 End: 08-09-2025 Kin Marie MD Work Phone: Endocrinology Comment on above: Med Change Request Start: 07-23-2025 End: 07-23-2025 ambulatory RAMIN ADRIAN Facility:[facility] Start: 07-23-2025 End: 07-23-2025 Patient encounter procedure Cristine Janel SALDIVARAIR ROUTE TRAFFIC CONTROLLER Work Phone: OB/Gynecology Comment on above: Encounter for superv ision of normal first in second trimester (HCC) (Primary Dx); 24 weeks gestation of (HCC); Hypothyroid in , antepartum (HCC); TSH elevation; Screening for diabetes mellitus Start: 06-25-2025 End: 06-25-2025 Patient encounter procedure i Tech 1 Optics Technical Officer [facility] Comment on above: Encounter for anatomic survey (HCC) (Primary Dx); 20 weeks gestation of (HCC) Encounter for superv ision of normal first in second trimester (HCC) (Primary Dx); Hypothyroid in , antepartum (HCC); TSH elevation; 20 weeks gestation of (HCC) Start: 06-25-2025 End: 06-25-2025 ambulatory [facility] Facility:[facility] Start: 06-08-2025 End: 06-08-2025 Patient encounter procedure Cory Marie MD Work Phone: Endocrinology Comment on above: TSH elevation; 17 weeks gestation of (HCC); Hypothyroidism, unspecified type Start: 06-08-2025 End: 06-08-2025 ambulatory [facility] Facility:[facility] Start: 06-02-2025 End: 08-02-2025 Follow-up encounter Deena Hanson APRN.CNGabrielle Work Phone: OB/Gynecology Start: 06-02-2025 End: 06-03-2025 Telephone encounter Deena Hanson APRN.CNGabrielle Work Phone: OB/Gynecology Comment on above: Results Start: 05-31-2025 End: 05-31-2025 ambulatory [facility] Facility:[facility] Start: 05-31-2025 End: 05-31-2025 Patient encounter procedure Deena Hanson ENVIRONMENTAL MONITORING SPECIALIST.CNGabrielle Work Phone: OB/Gynecology Comment on above: 16 weeks gestation o f (HCC) (Primary Dx); Supervision of normal first , antepartum (HCC); Hypothyroidism, unspecified type Start: 04-29-2025 End: 04-29-2025 ambulatory RAMIN ADRIAN Facility:[facility] Start: 04-29-2025 End: 04-29-2025 Patient encounter procedure Deena Herminiotai ALEJO Work Phone: OB/Gynecology Comment on above: Supervision of rudolph l first , antepartum (HCC) (Primary Dx); 12 weeks gestation of (HCC); Hypothyroidism, unspecified type Encounter for antena enid screening for malformation using ultrasound (HCC) (Primary Dx); 12 weeks gestation of (HCC); Encounter for (NT) nuchal translucency scan (HCC) Start: 04-29-2025 End: 04-29-2025 ambulatory RAMIN ADRIAN Facility:[facility] Start: 04-01-2025 End: 06-01-2025 Follow-up encounter Tiana Edmonds APRN.CNP Work Phone: OB/Gynecology Start: 04-01-2025 End: 04-01-2025 Patient encounter procedure Tiana Edmonds APRN.ELENA Work Phone: OB/Gynecology Comment on above: Supervision of rudolph l first , antepartum (HCC) (Primary Dx); with uncertain dates in first trimester (HCC); Screen for STD (sexually transmitted disease); Screening for cervical cancer; Special screening examination for human papillomavirus (HPV); Hypothyroidism, unspecified type; 8 weeks gestation of (HCC) Start: 04-01-2025 End: 04-01-2025 ambulatory TIANA EDMONDS Facility:[facility] Start: 03-30-2025 End: 03-30-2025 E-mail encounter from caregiver Tiana Edmonds APRN.CNP Work Phone: OB/Gynecology Start: 03-30-2025 End: 03-30-2025 Patient encounter procedure Tiana Edmonds APRN.CNP Work Phone: OB/Gynecology Comment on above: New OB appointment Start: 01-12-2025 End: 01-12-2025 Orders Only Ramin Adrian CNP Work Phone: [facility] Comment on above: Hypothyroidism, acqu ired, autoimmune (Primary Dx) Start: 01-06-2025 End: 01-06-2025 ambulatory RAMIN ADRIAN [facility] Start: 01-06-2025 End: 01-06-2025 Encounter for general adult medical examination without abnormal findings RAMIN ADRIAN [facility] Start: 01-06-2025 End: 01-06-2025 Patient encounter status Ramin Adrian AIR ROUTE TRAFFIC CONTROLLER Work Phone: [facility] Start: 01-06-2025 End: 01-06-2025 Periodic preventive med est patient 18-39 yrs Ramin Moralesham AIR ROUTE TRAFFIC CONTROLLER Work Phone: [facility] Comment on above: Well adult exam (Sariah tyra Dx); Hypothyroidism, acquired, autoimmune; Acne vulgaris Start: 01-05-2025 End: 01-12-2025 Orders Only Wesmikhailyady Dubois Nguyễn AIR ROUTE TRAFFIC CONTROLLER Work Phone: [facility] Comment on above: Vitamin D deficiency (Primary Dx); Well adult exam; Lipid screening Results Start: 01-05-2025 End: 01-05-2025 Patient encounter status Ramin Adrian AIR ROUTE TRAFFIC CONTROLLER Work Phone: [facility] Start: 01-04-2025 End: 01-04-2025 Patient encounter procedure Slava Sanchez MD Work Phone: [facility] Comment on above: Amenorrhea, secondar y (Primary Dx) Start: 01-04-2025 End: 01-04-2025 ambulatory SLAVA SANCHEZ Facility:[facility] Start: 11-04-2024 ambulatory RAMIN HERNANDEZ [facility] Start: 10-13-2024 End: 10-13-2024 Telephone encounter Areli Booth PA-C Work Phone: [facility] Gastro Comment on above: Results Start: 10-12-2024 End: 10-12-2024 ambulatory RAMIN CARLOS NGUYỄN Facility:[facility] Start: 10-12-2024 End: 10-12-2024 Subsequent hospital visit by physician Wayne Hernández MD Work Phone: Ambulatory Surgery Comment on above: Constipation, unspec ified constipation type [K59.00] Start: 10-05-2024 End: 10-05-2024 Telephone encounter Wayne Hernández MD Work Phone: Ambulatory Surgery Comment on above: PreOp Call Start: 09-24-2024 End: 09-24-2024 Telephone encounter Areli Booth PA-C Work Phone: [facility] Start: 06-25-2024 End: 06-25-2024 Patient encounter procedure Luann Ana RENTERIA Work Phone: [facility] Comment on above: Constipation, unspec ified constipation type (Primary Dx) Start: 06-25-2024 End: 06-25-2024 Telemedicine consultation with patient Luann Ana RENTERIA Work Phone: [facility] Start: 06-25-2024 End: 06-25-2024 ambulatory LUANN LOMAS Facility:[facility] Start: 06-17-2024 Telephone encounter [facility] Provider [facility] Comment on above: Patient Update Start: 01-09-2024 Orders Only Ramin Adrian CNP Work Phone: [facility] Comment on above: Vitamin D deficiency (Primary Dx) Start: 01-02-2024 End: 01-06-[address] [facility] Start: 01-02-2024 End: 01-06-2024 Encounter for general adult medical examination without abnormal findings [facility] Start: 01-02-2024 End: 01-02-2024 Patient encounter status Ramin Adrian CNP Work Phone: [facility] Start: 01-02-2024 End: 01-02-2024 Periodic preventive med est patient 18-39 yrs Ramin Adrian AIR ROUTE TRAFFIC CONTROLLER Work Phone: [facility] Comment on above: Well adult exam (Sariah tyra Dx); Hypothyroidism, acquired, autoimmune; Acne vulgaris; Hyperhidrosis; Spastic bladder; Constipation, unspecified constipation type Start: 12-23-2023 Orders Only Ramin Adrian AIR ROUTE TRAFFIC CONTROLLER Work Phone: [facility] Comment on above: Well adult exam (Sariah tyra Dx) Start: 12-23-2023 Patient encounter status Angelica Adrian AIR ROUTE TRAFFIC CONTROLLER Work Phone: [facility] Work Phone: Start: 09-21-2023 End: 09-21-2023 [facility] Start: 09-21-2023 End: 09-21-2023 Patient encounter procedure Sarah Ramos ENVIRONMENTAL MONITORING SPECIALIST - ALUM PLANT SUPERVISOR Work Phone: [facility] Comment on above: Occipital pain (Prim christiano Dx) Start: 08-27-2023 Refill Ramin Adrian AIR ROUTE TRAFFIC CONTROLLER Work Phone: [facility] Start: 05-25-2023 Refill Ramin Adrian AIR ROUTE TRAFFIC CONTROLLER Work Phone: [facility] Comment on above: Hypothyroidism, acqu ired, autoimmune Start: 01-02-2023 Orders Only Marian Trujillo PRACTICAL NURSE [facility] Start: 12-19-2022 Orders Only Ramin Adrian AIR ROUTE TRAFFIC CONTROLLER Work Phone: [facility] Comment on above: Hypothyroidism, acqu ired, autoimmune (Primary Dx) Start: 07-13-2022 ambulatory RAMIN ADRIAN [facility] Start: 06-19-2022 End: 06-19-2022 Patient encounter status Ramin Adrian AIR ROUTE TRAFFIC CONTROLLER Work Phone: [facility] Start: 06-19-2022 End: 06-19-2022 Periodic preventive med est patient 18-39 yrs Ramin Adrian AIR ROUTE TRAFFIC CONTROLLER Work Phone: [facility] Comment on above: Well adult exam (Sariah tyra Dx); Hypothyroidism, acquired, autoimmune; Acne vulgaris; Spastic bladder; Vitamin D deficiency; Encounter to establish care Start: 06-15-2022 Orders Only Marina Cassandra TELLES [facility] Start: 09-09-2019 End: 09-09-2019 Subsequent hospital visit by physician Jenn Peace Work Phone: [facility] Comment on above: Constipation, unspec ified constipation type Start: 08-25-2018 [facility] Start: 10-09-2017 End: 10-09-2017 Patient encounter [facility] Makenna [facility] Procedures Date Procedure Procedure Detail Performing Clinician Start: 06-25-2025 Us preg uterus after 1st trimest 1/ gestation Tiana Kendal ENVIRONMENTAL MONITORING SPECIALIST.AIR ROUTE TRAFFIC CONTROLLER Work Phone: Start: 04-29-2025 Antibody screen TIANA MCBRIDE Comment on above: Order Comment: Speci men Type: BLOOD SPECIMENOrdering Facility: [facility] Address: [address] [place] [address] Performed By: #### T SPN ####[facility] BLO[facility] BANKCLIA [id number] [address] Start: 04-29-2025 Us preg uterus after 1st trimest 1/ gestation Tiana Snow Shoe ENVIRONMENTAL MONITORING SPECIALIST.AIR ROUTE TRAFFIC CONTROLLER Work Phone: Start: 04-01-2025 Us uterus l imited 1/> fetuses Tiana Kendal ENVIRONMENTAL MONITORING SPECIALIST.AIR ROUTE TRAFFIC CONTROLLER Work Phone: Start: 01-04-2025 Antibody screen LUANN LOMAS Comment on above: Order Comment: Speci men Type: BLOOD SPECIMEN Ordering Facility: [facility] Address: [address] [place] [address] Performed By: #### T SCR #### [facility] CLIA [id number] 1 [place], [place] [id number] [address] [place] Start: 10-12-2024 Colonoscopy flx dx w /collj spec when pfrmd Areli Booth PA-C Work Phone: Start: 10-12-2024 Colonoscopy Areli diggs PA-C Work Phone: Start: 01-02-2024 Adult depression scr eening assessment Ramin Adrian CNP Work Phone: Start: 03-13-2023 Microscopic observat ion [Identifier] in Cervix by Cyto stain Ramin Adrian CNP Work Phone: Start: 06-19-2022 Adult depression scr eening assessment Marthayady Nguyễn PARKER Work Phone: Start: 09-09-2019 Radex colon w/spec h i dns barium w/wo glucagon External Transcribed Plan of Treatment Date Care Activity Detail Author Start: 02-03-2052 Zoster Vaccines (1 of 2) Zoster Vaccines (1 of 2) [facility] Start: 04-01-2028 Screening for malignant neoplasm of cervix Cervical Cancer Screening [facility] Start: 10-12-2027 Screening for malignant neoplasm of colon [facility] Start: 04-01-2026 GC (Gonorrhea) Screening (18-24) GC (Gonorrhea) Screening (18-24) [facility] Start: 04-01-2026 Screening for Chlamydia trachomatis Chlamydia Screening (18-24) [facility] Start: 03-13-2026 Screening for malignant neoplasm of cervix Pap Smear [facility] Start: 01-07-2026 End: 01-07-2026 Patient encounter procedure 01/07/2026 7:00 AM EST Office Visit [facility] [address] [place] [id number] Ramin Adrian, [facility] [address] [place] [id number] [facility] Start: 01-06-2026 Depression screening using PHQ-9 (Patient Health Questionnaire 9) score Depression Screening/Follow-Up (PHQ-2/9) [facility] Start: 01-06-2026 History and physical examination, annual for health maintenance Wellness Visit [facility] Start: 01-05-2026 Tetanus vaccination Tetanus: Every 10yrs [facility] Comment on above: Postponed from 02/11/2024 (Per Other Bes t Practice Guidelines) Start: 11-02-2025 COVID-19 Vaccine ( season) COVID-19 Vaccine ( season) [facility] Comment on above: Postponed from 07/26/2024 (Treatment Not Available) Start: 10-05-2025 End: 10-05-2025 Patient encounter procedure 10/05/2025 9:20 AM EST Office Visit Endocrinology [address] [place] [address] Cory Marie MD [address] [place] [address] 2 month f/u-hypothyroidism Endocrinology Comment on above: 2 month f/u-hypothyroidism Start: 09-13-2025 RSV Vaccine (1 - Risk 1-dose series) RSV Vaccine (1 - Risk 1-dose series) [facility] Start: 08-24-2025 End: 08-24-2025 Patient encounter procedure 08/24/2025 8:30 AM EDT Routine Office Visit OB/Gynecology [address] [place] [address] Hilario Sy MD [address] [place] [address] Glucose/ OB OB/Gynecology Comment on above: Glucose/ OB Start: 08-24-2025 End: 08-24-2025 ambulatory 08/24/2025 8:15 AM EDT Results Only [place] [facility] [address] [place] [address] glucose [facility] Comment on above: glucose Start: 08-03-2025 End: 08-03-2025 Patient encounter procedure 08/03/2025 9:00 AM EDT Office Visit Endocrinology [address] [place] [address] Cory Marie MD [address] [place] [address] 8 WK F/U HYPOTHYROIDISM Endocrinology Comment on above: 8 WK F/U HYPOTHYROIDISM Start: 07-26-2025 Influenza vaccination [facility] Start: 07-23-2025 End: 10-22-2025 ANEMIA REFLEX PANEL ANEMIA REFLEX PANEL Lab Routine Encounter for supervision of normal first in second trimester (HCC) 24 weeks gestation of (HCC) Expected: 07/23/2025, Expires: 10/22/2025 [facility] Comment on above: Expected: 07/23/2025, Expires: Start: 07-23-2025 End: 07-23-2026 GESTATIONAL GLUCOSE SCREEN, 1-HOUR, 50 GRAM, NON-FASTING GESTATIONAL GLUCOSE SCREEN, 1-HOUR, 50 GRAM, NON-FASTING Lab Routine Encounter for supervision of normal first in second trimester (HCC) 24 weeks gestation of ([facility]) Screening for diabetes mellitus Expected: 07/23/2025, Expires: 07/23/2026 [facility] Work Phone: Comment on above: Expected: 07/23/2025, Expires: Start: 07-23-2025 End: 07-23-2026 SYPHILIS TREPONEMAL W/REFLEX SYPHILIS TREPONEMAL W/REFLEX Lab Routine Encounter for supervision of normal first in second trimester (HCC) 24 weeks gestation of (HCC) Expected: 07/23/2025, Expires: 07/23/2026 [facility] Comment on above: Expected: 07/23/2025, Expires: Start: 07-23-2025 End: 07-23-2025 Patient encounter procedure 07/23/2025 7:00 AM EDT Routine Office Visit OB/Gynecology [address] [place], [place] [id number] Cristine Islas APRN.AIR ROUTE TRAFFIC CONTROLLER [address] [place] [address] OB OB/Gynecology Comment on above: OB Start: 07-09-2025 End: 10-08-2025 Thyrotropin [Units/volume] in Serum or Plasma THYROID STIMULATING HORMONE Lab Routine Hypothyroidism, unspecified type Expected: 07/09/2025, Expires: 10/08/2025 [facility] Work Phone: Comment on above: Expected: 07/09/2025, Expires: Start: 07-09-2025 End: 10-08-2025 Thyroxine (T4) free [Mass/volume] in Serum or Plasma T4 FREE/FREE THYROXINE Lab Routine Hypothyroidism, unspecified type Expected: 07/09/2025, Expires: 10/08/2025 [facility] Comment on above: Expected: 07/09/2025, Expires: Start: 06-25-2025 End: 06-25-2025 Patient encounter procedure 06/25/2025 1:00 PM EDT Routine Office Visit Maternal Medicine [address] [place] [address] Anatomy [facility] Comment on above: Anatomy Start: 06-24-2025 End: 06-24-2025 Patient encounter procedure [facility] Comment on above: Anatomy Anatomy/OB Start: 06-08-2025 End: 06-08-2025 Patient encounter procedure 06/08/2025 2:20 PM EDT Office Visit Endocrinology [address] [place] [address] Cory Marie MD [address] [place] [address] TSH elevation [R79.89] Endocrinology Comment on above: TSH elevation [R79.89] Start: 05-31-2025 End: 05-31-2025 Patient encounter procedure 05/31/2025 8:00 AM EDT Routine Office Visit OB/Gynecology [address] [place] [address] Deena Hanson APRN.CN [address] [place] [address] OB OB/Gynecology Comment on above: OB Start: 04-29-2025 End: 07-29-2025 Thyroxine (T4) free [Mass/volume] in Serum or Plasma [facility] Work Phone: Comment on above: Expected: 04/29/2025, Expires: Start: 04-29-2025 End: 04-29-2025 Patient encounter procedure [facility] Comment on above: Nuchal Nuchal/OB Start: 04-01-2025 End: 07-01-2025 ANEMIA REFLEX PANEL ANEMIA REFLEX PANEL Lab Routine with uncertain dates in first trimester (HCC) Expected: 04/01/2025, Expires: 07/01/2025 [facility] Work Phone: Comment on above: Expected: 04/01/2025, Expires: Start: 04-01-2025 End: 07-01-2025 Hemoglobin A1c in Blood HEMOGLOBIN A1C Lab Routine with uncertain dates in first trimester (HCC) Expected: 04/01/2025, Expires: 07/01/2025 [facility] Comment on above: Expected: 04/01/2025, Expires: Start: 04-01-2025 End: 07-01-2025 Hepatitis B virus surface Ag [Presence] in Serum HEPATITIS B SURFACE ANTIGEN Lab Routine with uncertain dates in first trimester (HCC) Expected: 04/01/2025, Expires: 07/01/2025 [facility] Comment on above: Expected: 04/01/2025, Expires: Start: 04-01-2025 End: 07-01-2025 Hepatitis C virus Ab [Presence] in Serum HEPATITIS C ANTIBODY IA WITH CONFIRMATION Lab Routine with uncertain dates in first trimester (HCC) Expected: 04/01/2025, Expires: 07/01/2025 [facility] Comment on above: Expected: 04/01/2025, Expires: Start: 04-01-2025 End: 07-01-2025 HIV 1+2 Ab [Presence] in Serum or Plasma by Immunoassay HIV 1/2 COMBO WITH REFLEX TO DIFFERENTIATION Lab Routine with uncertain dates in first trimester (HCC) Expected: 04/01/2025, Expires: 07/01/2025 [facility] Comment on above: Expected: 04/01/2025, Expires: Start: 04-01-2025 End: 04-01-2026 OBSTETRIC ULTRASOUND WHI OBSTETRIC ULTRASOUND WHI Anc Imaging Routine 8 weeks gestation of ([facility]) Expected: 04/01/2025, Expires: 04/01/2026 [facility] Comment on above: Expected: 04/01/2025, Expires: Start: 04-01-2025 End: 07-01-2025 RUBELLA IGG ANTIBODY RUBELLA IGG ANTIBODY Lab Routine with uncertain dates in first trimester ([facility]) Expected: 04/01/2025, Expires: 07/01/2025 [facility] Comment on above: Expected: 04/01/2025, Expires: Start: 04-01-2025 End: 07-01-2025 SYPHILIS TREPONEMAL W/REFLEX SYPHILIS TREPONEMAL W/REFLEX Lab Routine with uncertain dates in first trimester ([facility]) Expected: 04/01/2025, Expires: 07/01/2025 [facility] Comment on above: Expected: 04/01/2025, Expires: Start: 04-01-2025 End: 07-01-2025 Thyrotropin [Units/volume] in Serum or Plasma THYROID STIMULATING HORMONE Lab Routine Hypothyroidism, unspecified type Expected: 04/01/2025, Expires: 07/01/2025 [facility] Comment on above: Expected: 04/01/2025, Expires: Start: 04-01-2025 End: 07-01-2025 TYPE + SCREEN TYPE + SCREEN Blood Bank Routine with uncertain dates in first trimester ([facility]) Expected: 04/01/2025, Expires: 07/01/2025 [facility] Comment on above: Expected: 04/01/2025, Expires: Start: 04-01-2025 End: 04-01-2025 Patient encounter procedure 04/01/2025 8:15 AM EDT Initial Office Visit OB/Gynecology [address] [place] [address] Tiana Edmonds APRN.AIR ROUTE TRAFFIC CONTROLLER [address] [place] [address] New OB LMP 02/02. Arriving 30 min prior for intatke questions OB/Gynecology Comment on above: New OB LMP 02/02. Arriving 30 min prior f or intatke questions Start: 01-06-2025 End: 01-06-2025 Patient encounter procedure 01/06/2025 7:00 AM EST Office Visit [facility] Physician [facility] Primary Care [address] [place] [address] Ramin Adrian, AIR ROUTE TRAFFIC CONTROLLER [address] [place] [address] [facility] Physician [facility] Start: 01-04-2025 COVID-19 Vaccine (#1) COVID-19 Vaccine (#1) [facility] Comment on above: Postponed from 2002 (Treatment Not Available) Start: 01-02-2025 Depression screening using PHQ-9 (Patient Health Questionnaire 9) score [facility] Start: 01-02-2025 History and physical examination, annual for health maintenance Wellness Visit [facility] Start: 01-02-2025 Vaccination for human papillomavirus HPV Vaccines (1 - 2-dose series) [facility] Comment on above: Postponed from 2013 (Patient Refus ed) Start: 10-12-2024 End: 10-12-2024 Patient encounter procedure 10/12/2024 1:00 PM EST Appointment Ambulatory Surgery [address] [place] [address] Wayne Hernández MD [address] [address] Ambulatory Surgery Start: 09-28-2024 End: 09-28-2024 Anesthesia consultation 09/28/2024 11:59 PM EST Anesthesia Event Ambulatory Surgery [address] [address] Fani Crowley, ENVIRONMENTAL MONITORING SPECIALIST.SENIOR BUSINESS DEVELOPMENT MANAGER [address] [place] [address] Ambulatory Surgery Start: 07-26-2024 Covid-19 Vaccine ( season) Covid-19 Vaccine ( season) [facility] Start: 07-26-2024 Influenza vaccination Influenza Vaccine (#1) [facility] Start: 03-13-2024 History and physical examination, annual for health maintenance Wellness Visit [facility] Start: 02-11-2024 DTaP/Tdap/Td Vaccines (7 - Td or Tdap) DTaP/Tdap/Td Vaccines (7 - Td or Tdap) [facility] Start: 02-11-2024 Tetanus vaccination [facility] Start: 02-11-2024 Tetanus, diphtheria and acellular pertussis vaccination DTAP VACCINES (7 - Td) [facility] Start: 02-11-2024 Urine microalbumin profile DTaP,Tdap,Td Vaccine (7 - Td or Tdap) [facility] Start: 01-02-2024 End: 01-02-2024 Patient encounter procedure [facility] Start: 07-26-2023 Covid-19 Vaccine ( season) Covid-19 Vaccine ( season) [facility] Start: 07-26-2023 Influenza vaccination Influenza Vaccine (#1) [facility] Start: 07-02-2023 Vaccination for human papillomavirus HPV Vaccines (1 - 2-dose series) [facility] Comment on above: Postponed from 2013 (Patient Refus ed) Start: 06-19-2023 COVID-19 Vaccine (#1) COVID-19 Vaccine (#1) [facility] Comment on above: Postponed from 2002 (Patient Refus ed) Start: 06-19-2023 Depression screening using PHQ-9 (Patient Health Questionnaire 9) score Depression Screening (PHQ-2/9) [facility] Start: 06-19-2023 History and physical examination, annual for health maintenance Wellness Visit [facility] Start: 2023 Screening for malignant neoplasm of cervix [facility] Start: 01-02-2023 End: 01-02-2023 Patient encounter procedure 01/02/2023 Office Visit Primary Care Ramin Adrian, AIR ROUTE TRAFFIC CONTROLLER [address] [place] [address] [facility] Physician [facility] Start: 12-21-2022 End: 12-21-2022 Patient encounter procedure 12/21/2022 Office Visit Primary Care Ramin Adrian, AIR ROUTE TRAFFIC CONTROLLER [address] [place] [id number] [facility] Physician [facility] Start: 07-26-2022 Influenza vaccination Sequential Influenza Vaccine (#1) [facility] Start: 02-03-2020 Annual PCP Team Chronic Disease Visit Annual PCP Team Chronic Disease Visit [facility] Start: 02-03-2020 Anxiety Screening Anxiety Screening [facility] Start: 02-03-2020 Depression Screening Depression Screening [facility] Start: 02-03-2020 GC (Gonorrhea) Screening (18-24) GC (Gonorrhea) Screening (18-24) [facility] Start: 02-03-2020 Hepatitis C screening Hepatitis C Screening [facility] Start: 02-03-2020 HIV screening HIV Screening [facility] Start: 02-03-2020 Screening for Chlamydia trachomatis Chlamydia Screening (18-24) [facility] Start: 07-26-2019 Influenza vaccination given SEQUENTIAL INFLUENZA VACCINE (#1) [facility] Start: 06-04-2019 Hepatitis A immunization HEPATITIS A VACCINES (2 of 2 - 2-dose series) [facility] Start: 06-04-2019 Hepatitis A Vaccines (2 of 2 - 2-dose series) Hepatitis A Vaccines (2 of 2 - 2-dose series) [facility] Start: 2018 Meningococcal B Vaccine (1 of 2 - Standard) Meningococcal B Vaccine (1 of 2 - Standard) [facility] Start: 2018 Meningococcal B Vaccine: Consider Based On Risk (1 of 2 - Patient Seeks Protection) Meningococcal B Vaccine: Consider Based On Risk (1 of 2 - Patient Seeks Protection) [facility] Start: 2017 HIV screening HIV Screening [facility] Start: 2017 HPV Vaccine (1 - 3-dose series) HPV Vaccine (1 - 3-dose series) [facility] Start: 2017 Vaccination for human papillomavirus [facility] Start: 02-03-2016 Peds To Adult Transition Annual Assessment Peds To Adult Transition Annual Assessment [facility] Start: 2014 Depression Screening Depression Screening [facility] Start: 2014 Peds To Adult Transition Initial Discussion Peds To Adult Transition Initial Discussion [facility] Start: 2013 HPV Vaccines (1 - 2-dose series) HPV Vaccines (1 - 2-dose series) [facility] Start: 2013 Vaccination for human papillomavirus HPV Vaccines (1 - 2-dose series) [facility] Start: 2005 History and physical examination, annual for health maintenance Wellness Visit [facility] Start: 2002 COVID-19 Vaccine (#1) COVID-19 Vaccine (#1) [facility] Start: 2002 HIV screening HIV Screening [facility] Start: 2002 Screening for Chlamydia trachomatis Chlamydia Screening [facility] Start: 2002 Thyroid stimulating hormone measurement TSH Level [facility] Bacteria identified in Urine by Culture BACTERIAL CULTURE, URINE Microbiology Routine with uncertain dates in first trimester ([facility]) 04/01/2025 9:04 AM T [facility] Chlamydia trachomatis+Neisseria gonorrhoeae DNA [Presence] in Unspecified specimen by KATIE with probe detection GONORRHEA/CHLAMYDIA NAAT Lab Routine with uncertain dates in first trimester ([facility]) 04/01/2025 9:04 AM T [facility] End: 12-19-2023 Complete blood count with white cell differential, manual CBC and Differential Lab Routine Hypothyroidism, acquired, autoimmune 1 Occurrences starting 12/19/2022 until 12/19/2023 [facility] Comment on above: 1 Occurrences starting 12/19/2022 until 12/19/2023 End: 12-23-2024 Complete blood count with white cell differential, manual CBC and Differential Lab Routine Well adult exam 1 Occurrences starting 12/23/2023 until 12/23/2024 [facility] Comment on above: 1 Occurrences starting 12/23/2023 until 12/23/2024 End: 01-05-2026 Complete blood count with white cell differential, manual CBC and Differential Lab Routine Well adult exam 1 Occurrences starting 01/05/2025 until 01/05/2026 [facility] Comment on above: 1 Occurrences starting 01/05/2025 until 01/05/2026 End: 06-19-2023 Comprehensive metabolic 2000 panel - Serum or Plasma Comprehensive Metabolic Panel Lab Routine Well adult exam 1 Occurrences starting 06/19/2022 until 06/19/2023 [facility] Work Phone: Comment on above: 1 Occurrences starting 06/19/2022 until 06/19/2023 Comprehensive metabo lic 2000 panel - Serum or Plasma Comprehensive Metabolic Panel Lab Routine Well adult exam 06/19/2022 7:36 AM EDT [facility] End: 12-19-2023 Comprehensive metabolic 2000 panel - Serum or Plasma Comprehensive Metabolic Panel Lab Routine Hypothyroidism, acquired, autoimmune 1 Occurrences starting 12/19/2022 until 12/19/2023 [facility] Comment on above: 1 Occurrences starting 12/19/2022 until 12/19/2023 End: 12-23-2024 Comprehensive metabolic 2000 panel - Serum or Plasma Comprehensive Metabolic Panel Lab Routine Well adult exam 1 Occurrences starting 12/23/2023 until 12/23/2024 [facility] Comment on above: 1 Occurrences starting 12/23/2023 until 12/23/2024 End: 01-05-2026 Comprehensive metabolic 2000 panel - Serum or Plasma Comprehensive Metabolic Panel Lab Routine Well adult exam 1 Occurrences starting 01/05/2025 until 01/05/2026 [facility] Comment on above: 1 Occurrences starting 01/05/2025 until 01/05/2026 End: 09-24-2025 Flexible sigmoidoscopy study COLONOSCOPY DIAGNOSTIC Endoscopy Routine Constipation, unspecified constipation type Change in bowel habits 1 Occurrences starting 09/24/2024 until 09/24/2025 [facility] Work Phone: Comment on above: 1 Occurrences starting 09/24/2024 until 09/24/2025 End: 12-23-2024 Lipid 1996 panel - Serum or Plasma Lipid Panel Lab Routine Well adult exam 1 Occurrences starting 12/23/2023 until 12/23/2024 [facility] Work Phone: Comment on above: 1 Occurrences starting 12/23/2023 until 12/23/2024 End: 01-05-2026 Lipid 1996 panel - Serum or Plasma Lipid Panel Lab Routine Well adult exam Lipid screening 1 Occurrences starting 01/05/2025 until 01/05/2026 [facility] Work Phone: Comment on above: 1 Occurrences starting 01/05/2025 until 01/05/2026 PAP TEST PAP TEST Lab Rou jas Screening for cervical cancer Special screening examination for human papillomavirus (HPV) 04/01/2025 9:04 AM EDT [facility] SURGICAL PATHOLOGY [facility] Work Phone: Comment on above: Release Upon Ordering for 1 Occurrences starting 10/12/2024, 1 completed End: 06-19-2023 Thyrotropin [Units/volume] in Serum or Plasma TSH Lab Routine Well adult exam Hypothyroidism, acquired, autoimmune 1 Occurrences starting 06/19/2022 until 06/19/2023 [facility] Comment on above: 1 Occurrences starting 06/19/2022 until 06/19/2023 Thyrotropin [Units/volume] in Serum or Plasma TSH Lab Routine Well adult exam Hypothyroidism, acquired, autoimmune 06/19/2022 7:36 AM EDT [facility] End: 12-19-2023 Thyrotropin [Units/volume] in Serum or Plasma TSH with Reflex Free T4 Lab Routine Hypothyroidism, acquired, autoimmune 1 Occurrences starting 12/19/2022 until 12/19/2023 [facility] Work Phone: Comment on above: 1 Occurrences starting 12/19/2022 until 12/19/2023 End: 12-23-2024 Thyrotropin [Units/volume] in Serum or Plasma TSH with Reflex Free T4 Lab Routine Well adult exam 1 Occurrences starting 12/23/2023 until 12/23/2024 [facility] Comment on above: 1 Occurrences starting 12/23/2023 until 12/23/2024 End: 01-06-2026 Thyrotropin [Units/volume] in Serum or Plasma TSH with Reflex Free T4 Lab Routine Hypothyroidism, acquired, autoimmune 1 Occurrences starting 01/06/2025 until 01/06/2026 [facility] Work Phone: Comment on above: 1 Occurrences starting 01/06/2025 until 01/06/2026 End: 05-31-2026 Thyrotropin [Units/volume] in Serum or Plasma THYROID STIMULATING HORMONE Lab Routine Supervision of normal first , antepartum (HCC) Hypothyroidism, unspecified type Once per month for 8 Occurrences starting 05/31/2025 until 05/31/2026 [facility] Work Phone: Comment on above: Once per month for 8 Occurrences startin g 05/31/2025 until 05/31/2026 Thyrotropin [Units/volume] in Serum or Plasma THYROID STIMULATING HORMONE Lab Routine Supervision of normal first , antepartum (HCC) Hypothyroidism, unspecified type 05/31/2025 8:35 AM [facility] End: 06-19-2023 Thyroxine (T4) free [Mass/volume] in Serum or Plasma T4, Free Lab Routine Well adult exam Hypothyroidism, acquired, autoimmune 1 Occurrences starting 06/19/2022 until 06/19/2023 [facility] Comment on above: 1 Occurrences starting 06/19/2022 until 06/19/2023 Thyroxine (T4) free [Mass/volume] in Serum or Plasma T4, Free Lab Routine Well adult exam Hypothyroidism, acquired, autoimmune 06/19/2022 7:36 AM EDT [facility] End: 05-31-2026 Thyroxine (T4) free [Mass/volume] in Serum or Plasma T4 FREE/FREE THYROXINE Lab Routine Supervision of normal first , antepartum (HCC) Hypothyroidism, unspecified type Once per month for 8 Occurrences starting 05/31/2025 until 05/31/2026 [facility] Comment on above: Once per month for 8 Occurrences startin g 05/31/2025 until 05/31/2026 Thyroxine (T4) free [Mass/volume] in Serum or Plasma T4 FREE/FREE THYROXINE Lab Routine Supervision of normal first , antepartum (HCC) Hypothyroidism, unspecified type 05/31/2025 8:35 AM [facility] TRICHOMONAS VAGINALI S NAAT TRICHOMONAS VAGINALIS NAAT Lab Routine Screen for STD (sexually transmitted disease) 04/01/2025 9:04 AM [facility] End: 12-23-2024 Vitamin D, 25-hydroxy measurement Vitamin D, Total, 25-OH Lab Routine Well adult exam 1 Occurrences starting 12/23/2023 until 12/23/2024 [facility] Comment on above: 1 Occurrences starting 12/23/2023 until 12/23/2024 End: 01-05-2026 Vitamin D, 25-hydroxy measurement Vitamin D, Total, 25-OH Lab Routine Vitamin D deficiency Well adult exam 1 Occurrences starting 01/05/2025 until 01/05/2026 [facility] Comment on above: 1 Occurrences starting 01/05/2025 until 01/05/2026 Immunizations Immunization Date Immunization Notes Care Provider Fa roman 12-05-2018 hepatitis A vaccine, pediatric/adolescent dosage, 2 dose schedule [facility] Work Phone: [facility] 12-05-2018 meningococcal polysa ccharide (groups A, C, Y and W-135) diphtheria toxoid conjugate vaccine (MCV4P) [facility] Work Phone: [facility] 12-05-2018 hepatitis A and hepa titis B vaccine Jenn Nata [facility] 02-10-2014 meningococcal polysa ccharide (groups A, C, Y and W-135) diphtheria toxoid conjugate vaccine (MCV4P) [facility] [employer] [facility] Work Phone: [facility] 02-10-2014 tetanus toxoid, redu chance diphtheria toxoid, and acellular pertussis vaccine, adsorbed [facility] Work Phone: [facility] 02-18-2008 varicella virus vaccine Lexi lesa [facility] Work Phone: [facility] 02-03-2007 diphtheria, tetanus toxoids and acellular pertussis vaccine [facility] [employer] [facility] Work Phone: [facility] 02-03-2007 diphtheria, tetanus toxoids and acellular pertussis vaccine, unspecified formulation [facility] Work Phone: [facility] 02-03-2007 measles, mumps and r ubella virus vaccine [facility] [employer] [facility] Work Phone: [facility] 02-03-2007 poliovirus vaccine, inactivated [facility] Work Phone: [facility] 08-23-2003 varicella virus vaccine Lexi lesa [facility] Work Phone: [facility] 05-19-2003 diphtheria, tetanus toxoids and acellular pertussis vaccine [facility] [employer] [facility] Work Phone: [facility] 05-19-2003 diphtheria, tetanus toxoids and acellular pertussis vaccine, unspecified formulation [facility] Work Phone: [facility] 05-19-2003 measles, mumps and r ubella virus vaccine [facility] Work Phone: [facility] 05-19-2003 pneumococcal conjuga te vaccine, 7 valent [facility] Work Phone: [facility] 02-15-2003 haemophilus influenz ae type b vaccine, conjugate unspecified formulation [employer] Work Phone: [facility] 02-15-2003 haemophilus influenz ae type b vaccine, PRP-T conjugate [employer] Work Phone: [facility] 02-15-2003 pneumococcal conjuga te vaccine, 7 valent [employer] Work Phone: [facility] 02-15-2003 poliovirus vaccine, inactivated [employer] Work Phone: [facility] 2002 diphtheria, tetanus toxoids and acellular pertussis vaccine [employer] Work Phone: [facility] 2002 diphtheria, tetanus toxoids and acellular pertussis vaccine, unspecified formulation [employer] Work Phone: [facility] 2002 haemophilus influenz ae type b vaccine, conjugate unspecified formulation [employer] Work Phone: [facility] 2002 haemophilus influenz ae type b vaccine, PRP-T conjugate [employer] Work Phone: [facility] 2002 hepatitis B vaccine, pediatric or pediatric/adolescent dosage [employer] Work Phone: [facility] 2002 diphtheria, tetanus toxoids and acellular pertussis vaccine [employer] Work Phone: [facility] 2002 diphtheria, tetanus toxoids and acellular pertussis vaccine, unspecified formulation [employer] Work Phone: [facility] 2002 haemophilus influenz ae type b vaccine, conjugate unspecified formulation [employer] Work Phone: [facility] 2002 haemophilus influenz ae type b vaccine, PRP-T conjugate Tabbitha Nguyễn CNP Work Phone: [facility] 2002 poliovirus vaccine, inactivated Tabbitha Nguyễn [employer] Work Phone: [facility] 2002 diphtheria, tetanus toxoids and acellular pertussis vaccine Tabbitha Nguyễn [facility] Work Phone: [facility] 2002 diphtheria, tetanus toxoids and acellular pertussis vaccine, unspecified formulation Tabbitha Nguyễn [facility] Work Phone: [facility] 2002 haemophilus influenz ae type b vaccine, conjugate unspecified formulation Tabbitha Nguyễn CNP Work Phone: [facility] 2002 haemophilus influenz ae type b vaccine, PRP-T conjugate Tabbitha Nguyễn CNP Work Phone: [facility] 2002 poliovirus vaccine, inactivated Tabbitha Nguyễn [facility] Work Phone: [facility] 2002 hepatitis B vaccine, pediatric or pediatric/adolescent dosage Tabbitha Nguyễn [facility] Work Phone: [facility] 2002 hepatitis B vaccine, pediatric or pediatric/adolescent dosage Tabbitha Nguyễn [facility] Work Phone: [facility] Payers Date Payer Category Payer Self-pay 2016 [facility] PPO OOS [id number] 2016 [facility] (Indemnity or Managed Care) - Out of State [id number] 2016 Unknown [employer] BCBS OUT OF STATE [facility] x[place]xxxxxx 2016-Present xxxxxxxxxxxxxxx [id number] 2016 Unknown [id number] 2016 Unknown [id number] 2016 Unknown [id number] 2002 Unknown [id number] 03 1976 Unknown [id number] 30 1976 Unknown [id number] 30 1976 Unknown [id number] 03 1976 Unknown [id number] 03 1976 Unknown [id number] 03 Unknown [id number] Social History Date Type Detail [facility] Start: 2002 Sex Assigned At Not on file [facility] Start: 06-19-2022 End: 11-20-2023 Tobacco smoking status NHIS Never smoked tobacco [facility] Start: 06-19-2022 End: 11-20-2023 Tobacco use and exposure Smokeless tobacco non-user [facility] Start: 06-19-2022 End: 08-03-2025 Alcohol intake Lifetime non-drinker (finding) [facility] Start: 06-19-2022 History SDOH Social Connections Get Together 3 [facility] Start: 06-19-2022 History SDOH Financial 5 [facility] Start: 06-19-2022 History SDOH Food Worry 1 [facility] Start: 06-19-2022 History SDOH Transport Med 2 [facility] Start: 06-08-2022 End: 01-01-2023 Exposure to SARS-CoV-2 (event) Not sure [facility] Tobacco smoking stat [facility] Tobacco smoking consumption unknown [facility] Start: 06-19-2022 End: 06-25-2024 History of Social function [facility] Start: 06-19-2022 End: 06-25-2024 Social connection and isolation panel [facility] Start: 09-21-2023 Frequency of Communi cation with Friends and Family Not on file [facility] (I/We) worried wheth er (my/our) food would run out before (I/we) got money to buy more. Never true [facility] In the past 12 month s, was there a time when you were not able to pay the mortgage or rent on time? No [facility] Start: 05-30-2022 Gender identity Identifies as female gender (finding) [facility] Start: 05-30-2022 Sexual orientation Heterosexual (fin robbie) [facility] Start: 09-21-2023 Alcohol intake Current drinke r of alcohol (finding) [facility] Start: 2002 Sex assigned at Female [facility] Start: 02-15-2025 [facility] Goals Date Patient Goal Desired Activity /State Personal health goal Clinical Notes 06-19-2022 to 10-05-2025 Telephone Encounter - Akilah Cota APRN.[facility] - 08/09/2025 11:33 AM EDTTelephone Encounter - Akilah Cota APRN.[facility] - 08/09/2025 11:33 AM Cristine Valdez APRN.[facility] - 07/23/2025 7:17 AM EDT Note Date & Type Note Facility 10-05-2025 Note HNO ID: [id number] Author: CORY MARIE MD Service: ? Author Type: Physician Type: Progress Notes Filed: 10/05/2025 10:12 Note Text: [facility] Follow up note CONSULTING PROVIDER: Deena Hanson APRN. CNM My final recommendations will be communicated back to the requesting provider by way of shared Medical record or a letter via [place] mail Subjective: Maximilian Rae is a 25 year old female here for follow up of hypothyroidism. Currently 35 weeks Hypothyroidism was discovered at the age of 12 years. She has seen pediatric endocrinology and was started on levothyroxine. Then was transferred back to her occupational therapist aide, who has monitored labs every 6 months, until she was transitioned to PCP at adult medicine after which labs were done annually. Her dose has not changed since Cause of hypothyroidism: unclear, reports she knows it is not Jake's Current treatment: Tirosint 75 mcg daily Prior treatment: Tirosint 37.5 mcg daily followed by 50 mcg daily changed during - Takes medication 30 minutes to sometimes 2 hours after last meal, depending on schedule. - Takes vitamins in the evening - Denies significant changes in sleep, or bowel habits beyond typical -related symptoms. - Experiencing typical symptoms, including fatigue and slight changes in appetite. - denied any concerns today - No family history of thyroid or autoimmune issues. REVIEW OF SYSTEMS: GENERAL:No weight loss, malaise or fevers HEENT:Negative for frequent or significant headaches, No changes in hearing or vision, no nose bleeds or other nasal problems NECK:Negative for lumps, goiter, pain and significant neck swelling RESPIRATORY: Negative for cough, hemoptysis, wheezing or shortness of breath CARDIOVASCULAR: Negative for chest pain, leg swelling or palpitations GASTROINTESTINAL: No nausea, vomiting, or persistent diarrhea GENITOURINARY: no dysuria, Polyuria, no changes in urinary frequency MUSCULOSKELETAL:no muscle aches, arthralgia NEUROLOGIC: no numbness, tingling, no Paresthesias, no headaches SKIN:Negative for lesions, rash, and itching PSYCHIATRIC: Negative for sleep disturbance, mood disorder and recent psychosocial stressors. HEMATOLOGIC/LYMPHATIC/IMMUNOLO GIC:Negative for prolonged bleeding, bruising easily ENDOCRINE: Negative for cold or heat intolerance or goiter ALLERGIES: ALLERGIES No Known Allergies MEDICATIONS: Current Outpatient Medications on File Prior to Visit Medication Sig no115/iron/folic acid ( 19 ORAL) Take 1 tablet by mouth once daily. magnesium citrate 100 mg tab Take 1 tablet by mouth once daily. cholecalciferol (VITAMIN D-3) 400 unit tab Take 400 Units by mouth once daily. levothyroxine (TIROSINT) 37.5 mcg capsule Take 37.5 mcg by mouth daily before breakfast. aspirin, enteric coated (ECOTRIN LOW STRENGTH) 81 mg EC tablet Take 1 tablet by mouth once daily. (Patient not taking: Reported on 05/31/2025) No current facility-administered medications on file prior to visit. PAST MEDICAL HISTORY: PAST MEDICAL HISTORY Diagnosis Date Coitus painful for female Cystic acne Pt reported Hypothyroidism Pt reported Overactive bladder Pt reported Sessile serrated polyp of colon PAST SURGICAL HISTORY: PAST SURGICAL HISTORY Procedure Laterality Date BLADDER SURGERY HX at age 7 COLONOSCOPY DIAGNOSTIC 10/12/2024 Sessile Serrated polyp COLPOSCOPY CERVIX VAG LOOP ELTRD BX CERVIX EXTRACTION ERUPTED TOOTH/EXR FAMILY HISTORY: FAMILY HISTORY Problem Relation Age of Onset Colon Cancer Other Breast Cancer Other Colon Cancer Other SOCIAL HISTORY: Social History Tobacco Use Smoking status: Never Passive exposure: Never Smokeless tobacco: Never Vaping Use Vaping status: Never Used Substance Use Topics Alcohol use: Never Drug use: Never PHYSICAL EXAM: BP 120/74 (BP Site: Right Arm, BP Position: Sitting, BP Cuff Size: Large Adult) Pulse 96 Wt 85.3 kg (188 lb) LMP 02/01/2025 (Exact Date) SpO2 98% BMI 32.27 kg/m? Last 3 Encounter Wt Readings: Date: Wt: 05/31/2025 72.2 kg (159 lb 3.2 oz) 04/29/2025 69.4 kg (153 lb) 04/01/2025 69.9 kg (154 lb) General: Alert and oriented x3, no acute distress Eyes: Anicteric sclera. Extraocular movements are intact. Neck supple, no cervical lymphadenopathy Thyroid: normal size, normal texture, no palpable nodules Lungs: Breathing unlabored, No wheezing Heart: regular rate and rhythm, no murmur, S1 and S2 normal Musculoskeletal: Muscular strength intact, No joint swelling, deformity, or tenderness Neuro: Gait normal. Sensation grossly intact. No focal findings Abdomen: deferred Extremities: without edema, no deformities Skin: no rashes/ erythema LABS: 01/06/25 TSH 6.25 (0.4-4.5) Latest Ref Rng 04/29/2025 05/31/2025 07/23/2025 09/14/2025 TSH 0.270 - 4.200 mIU/L 4.010 6. (more content not included)... [facility] 08-24-2025 Note HNO ID: [id number] Author: HILARIO SY MD Service: ? Author Type: Physician Type: Progress Notes Filed: 08/24/2025 08:52 Note Text: [facility] 08-09-2025 Telephone encount er Note Rx sent on 08/03/25 for levothyroxine 75 mcg [facility] Work Phone: 08-09-2025 Miscellaneous Notes Formattin g of this note might be different from the original. Rx sent on 08/03/25 for levothyroxine 75 mcg documented in this encounter [facility] 08-03-2025 Note HNO ID: [id number] Author: CORY MARIE MD Service: ? Author Type: Physician Type: Progress Notes Filed: 09/02/2025 01:26 Note Text: [facility] Follow up note CONSULTING PROVIDER: Deena Hanson APRN. CNM My final recommendations will be communicated back to the requesting provider by way of shared Medical record or a letter via [place] mail Subjective: Maximilian Rae is a 25 year old female here for follow up of hypothyroidism. Currently 26 weeks Hypothyroidism was discovered at the age of 12 years. She has seen pediatric endocrinology and was started on levothyroxine. Then was transferred back to her occupational therapist aide, who has monitored labs every 6 months, until she was transitioned to PCP at adult medicine after which labs were done annually. Her dose has not changed since Cause of hypothyroidism: unclear, reports she knows it is not Jake's Current treatment: Tirosint 50 mcg daily Prior treatment: Tirosint 37.5 mcg daily - Takes medication 30 minutes to sometimes 2 hours after last meal, depending on schedule. - Takes vitamins in the evening - Denies significant changes in sleep, or bowel habits beyond typical -related symptoms. - Experiencing typical symptoms, including fatigue and slight changes in appetite. - denied any concerns today - No family history of thyroid or autoimmune issues. REVIEW OF SYSTEMS: GENERAL:No weight loss, malaise or fevers HEENT:Negative for frequent or significant headaches, No changes in hearing or vision, no nose bleeds or other nasal problems NECK:Negative for lumps, goiter, pain and significant neck swelling RESPIRATORY: Negative for cough, hemoptysis, wheezing or shortness of breath CARDIOVASCULAR: Negative for chest pain, leg swelling or palpitations GASTROINTESTINAL: No nausea, vomiting, or persistent diarrhea GENITOURINARY: no dysuria, Polyuria, no changes in urinary frequency MUSCULOSKELETAL:no muscle aches, arthralgia NEUROLOGIC: no numbness, tingling, no Paresthesias, no headaches SKIN:Negative for lesions, rash, and itching PSYCHIATRIC: Negative for sleep disturbance, mood disorder and recent psychosocial stressors. HEMATOLOGIC/LYMPHATIC/IMMUNOLO GIC:Negative for prolonged bleeding, bruising easily ENDOCRINE: Negative for cold or heat intolerance or goiter ALLERGIES: ALLERGIES No Known Allergies MEDICATIONS: Current Outpatient Medications on File Prior to Visit Medication Sig no115/iron/folic acid ( 19 ORAL) Take 1 tablet by mouth once daily. magnesium citrate 100 mg tab Take 1 tablet by mouth once daily. cholecalciferol (VITAMIN D-3) 400 unit tab Take 400 Units by mouth once daily. levothyroxine (TIROSINT) 37.5 mcg capsule Take 37.5 mcg by mouth daily before breakfast. aspirin, enteric coated (ECOTRIN LOW STRENGTH) 81 mg EC tablet Take 1 tablet by mouth once daily. (Patient not taking: Reported on 05/31/2025) No current facility-administered medications on file prior to visit. PAST MEDICAL HISTORY: PAST MEDICAL HISTORY Diagnosis Date Cystic acne Pt reported Hypothyroidism Pt reported Overactive bladder Pt reported Sessile serrated polyp of colon PAST SURGICAL HISTORY: PAST SURGICAL HISTORY Procedure Laterality Date BLADDER SURGERY HX at age 7 COLONOSCOPY DIAGNOSTIC 10/12/2024 Sessile Serrated polyp EXTRACTION ERUPTED TOOTH/EXR FAMILY HISTORY: FAMILY HISTORY Problem Relation Age of Onset Colon Cancer Other SOCIAL HISTORY: Social History Tobacco Use Smoking status: Never Smokeless tobacco: Never Vaping Use Vaping status: Never Used Substance Use Topics Alcohol use: Never Drug use: Never PHYSICAL EXAM: BP 106/72 (BP Site: Right Arm, BP Position: Sitting, BP Cuff Size: Regular Adult) Pulse 67 Temp 36.7 ?C (98.1 ?F) (Temporal Artery) Resp 20 Wt 79.4 kg (175 lb) LMP 02/01/2025 (Exact Date) SpO2 99% BMI 30.04 kg/m? Last 3 Encounter Wt Readings: Date: Wt: 05/31/2025 72.2 kg (159 lb 3.2 oz) 04/29/2025 69.4 kg (153 lb) 04/01/2025 69.9 kg (154 lb) General: Alert and oriented x3, no acute distress Eyes: Anicteric sclera. Extraocular movements are intact. No lid lag or stare Neck supple, no cervical lymphadenopathy Thyroid: normal size, normal texture, no palpable nodules Lungs: Breathing unlabored, No wheezing, rhonchi, rales Heart: regular rate and rhythm, no murmur, S1 and S2 normal Musculoskeletal: Muscular strength intact, No joint swelling, deformity, or tenderness Neuro: Gait normal. Sensation grossly intact. No focal findings Abdomen: deferred Extremities: without edema, no deformities Skin: no rashes/ erythema LABS: 01/06/25 TSH 6.25 (0.4-4.5) Latest Ref Rng 04/29/2025 05/31/2025 07/23/2025 TSH 0.270 - 4.200 mIU/L 4.010 6.200 (H) 3.690 Free T4 0.9 - 1.7 ng/dL 1.0 1.1 1.0 Legend: (H) High TSH Date Value Ref Range Status 08/ (more content not included)... [facility] 07-23-2025 Note HNO ID: [id number] Author: CRISTINE ISLAS APRN.[employer] Service: ? Author Type: Nurse Practitioner Type: Progress Notes Filed: 07/23/2025 07:31 Note Text: EH - S: Maximilian is a 25 year old female who presents at 24w4d for a routine visit. Feeling movement. Denies headache, visual changes, chest pain, shortness of breath, vaginal bleeding, leakage of fluid, or dysuria. Recently tripped down a few stairs - about a week ago - landed on hands and knees. No pain, cramping, or bleeding. Feeling good movement. O: See flow sheet Gen: No apparent distress Abd: Gravid, nontender, S=D ASSESSMENT/PLAN: 1. Encounter for supervision of normal first in second trimester ([facility]) - ICD9: V22.0, ICD10: Z34.02 (primary diagnosis) - Continue PNV 2. 24 weeks gestation of ([facility]) - ICD9: V22.2, ICD10: Z3A.24 - Anatomy ultrasound reviewed 3. Hypothyroid in , antepartum ([facility]) - ICD9: 648.13, 244.9, ICD10: O99.280, E03.9 4. TSH elevation - ICD9: 794.5, ICD10: R79.89 - Needs to repeat labs - Follows with ramesh covington appt 08/03 - Taking 50 mcg of Synthroid daily PTL precautions reviewed. RTO in 4 weeks or sooner as needed. Cristine Islas APRN.[facility] 07-23-2025 History of Presen t illness Narrative EH - S: Maximilian is a 25 year old female who presents at 24w4d for a routine visit. Feeling movement. Denies headache, visual changes, chest pain, shortness of breath, vaginal bleeding, leakage of fluid, or dysuria. Recently tripped down a few stairs - about a week ago - landed on hands and knees. No pain, cramping, or bleeding. Feeling good movement. O: See flow sheet Gen: No apparent distress Abd: Gravid, nontender, S=D ASSESSMENT/PLAN: 1. Encounter for supervision of normal first in second trimester ([facility]) - ICD9: V22.0, ICD10: Z34.02 (primary diagnosis) - Continue PNV 2. 24 weeks gestation of ([facility]) - ICD9: V22.2, ICD10: Z3A.24 - Anatomy ultrasound reviewed 3. Hypothyroid in , antepartum ([facility]) - ICD9: 648.13, 244.9, ICD10: O99.280, E03.9 4. TSH elevation - ICD9: 794.5, ICD10: R79.89 - Needs to repeat labs - Follows with ramesh covington 08/03 - Taking 50 mcg of Synthroid daily PTL precautions reviewed. RTO in 4 weeks or sooner as needed. Cristine Islas APRN.[employer] documented in this encounter [facility] 07-23-2025 Instructions Janett Balderas MA - 07/23/2025 7:10 AM EDT SEQUENTIAL SCREENINGS The [facility] offers sequential screenings for women who are interested in screenings for chromosomal abnormalities and certain defects during a . The sequential screen combines ultrasound and blood tests to determine the risk of chromosomal abnormalities, including Down's Syndrome (Trisomy 21) and Trisomy 18, as well as open neural tube defects including spina bifida. Ultrasound examination is performed between 11 weeks and 13 weeks gestational age. Blood tests are drawn after the ultrasound and again later in the between 15 and 21 weeks gestational age. Please let your physician know if you are interested in this testing. It will require an appointment with our technician biological health. This is not an ultrasound performed by a physician in our office during a routine visit. SIGNS AND SYMPTOMS OF LABOR 1. Contractions every 10 minutes or more often 2. Clear, pink, or brownish fluid (water) leaking from vagina 3. Feeling that baby is pushing down, pressure 4. Low, dull backache 5. Cramps that feel like a period 6. Cramps with or without diarrhea If you notice any of the above symptoms, contact our office at [phone] and ask to speak with a nurse. After hours, you can call doctors registry at [phone] OR call [facility] at [phone] and ask to have the doctor marketing operations manager paged. If you consider this an emergency, dial or go to your nearest emergency department. NEED HELP? Are you dealing with a violent or abusive relationship? Are you a victim of rape or sexual assult? Call [facility] ([place]) 24 hour Crisis Hotline: 250.617.2695 or 323-057-1508. MANUAL Your Guide to a Healthy manual is now on-line. Visit [email or web address] [email or web address] to download your free copy Oral Glucose Tolerance Test During Your provider has ordered an oral glucose tolerance test. For more information: My [facility] Oral Glucose Tolerance Test How do I prepare for my one-hour glucose test? You don t need to prepare for your one-hour glucose screening. Most care providers recommend avoiding foods high in sugar for breakfast. For example, pancakes, donuts or juice. If you re testing later in the day, be aware that eating large amounts of sugar for lunch may affect your results. Can you eat before a glucose screening test? Yes, you can eat normally before your glucose screening test. What can I expect on the day of the glucose screening? On the day of your glucose screening, follow instructions given to you by your care provider or the lab (if applicable). Be sure to know exactly where to go for the screening and if you need an appointment. Safe Sleep for [place] For more information: [email or web address] Safe Sleep Healthy babies are safest when sleeping on their backs at nighttime and during naps. Side sleeping is not as safe as back sleeping and is not advised. documented in this encounter [facility] 06-25-2025 Progress note Formatting of t his note might be different from the original. DM-Pt doing well. Denies vaginal Bleeding, Leaking fluid, or regular Contractions. Pt reports good movement Physical Exam: Gen: female in no apparent distress Abd: soft, Gravid. Non tender to palpation. See flow sheet @ 20.4 weeks Assessment & Plan Encounter for supervision of normal first in second trimester (HCC) Hypothyroid in , antepartum (HCC) Repeat labs ordered by endocrinology Continue Levothyroxine TSH elevation 20 weeks gestation of ([facility]) Did not start ASA RTO 4 weeks Anatomy us pending today Huong Hicks MD [facility] 06-25-2025 Miscellaneous Notes Formattin g of this note might be different from the original. DM-Pt doing well. Denies vaginal Bleeding, Leaking fluid, or regular Contractions. Pt reports good movement Physical Exam: Gen: female in no apparent distress Abd: soft, Gravid. Non tender to palpation. See flow sheet @ 20.4 weeks Assessment & Plan Encounter for supervision of normal first in second trimester (HCC) Hypothyroid in , antepartum (HCC) Repeat labs ordered by endocrinology Continue Levothyroxine TSH elevation 20 weeks gestation of ([facility]) Did not start ASA RTO 4 weeks Anatomy us pending today Huong Hicks MD documented in this encounter [facility] 06-25-2025 Instructions Belkys Galvez MA - 06/25/2025 1:52 PM EDT SEQUENTIAL SCREENINGS The [facility] offers sequential screenings for women who are interested in screenings for chromosomal abnormalities and certain defects during a . The sequential screen combines ultrasound and blood tests to determine the risk of chromosomal abnormalities, including Down's Syndrome (Trisomy 21) and Trisomy 18, as well as open neural tube defects including spina bifida. Ultrasound examination is performed between 11 weeks and 13 weeks gestational age. Blood tests are drawn after the ultrasound and again later in the between 15 and 21 weeks gestational age. Please let your physician know if you are interested in this testing. It will require an appointment with our technician biological health. This is not an ultrasound performed by a physician in our office during a routine visit. SIGNS AND SYMPTOMS OF LABOR 1. Contractions every 10 minutes or more often 2. Clear, pink, or brownish fluid (water) leaking from vagina 3. Feeling that baby is pushing down, pressure 4. Low, dull backache 5. Cramps that feel like a period 6. Cramps with or without diarrhea If you notice any of the above symptoms, contact our office at [phone] and ask to speak with a nurse. After hours, you can call [facility] registry at [phone] OR call [facility] at [phone] and ask to have the doctor marketing operations manager paged. If you consider this an emergency, dial or go to your nearest emergency department. NEED HELP? Are you dealing with a violent or abusive relationship? Are you a victim of rape or sexual assult? Call [facility] ([place]) 24 hour Crisis Hotline: 363.582.5712 or 569-591-8575. MANUAL Your Guide to a Healthy manual is now on-line. Visit [email or web address] to download your free copy documented in this encounter [facility] 06-08-2025 Instructions Cory Marie MD - 06/08/2025 2:27 PM EDT Increase the dose of levothyroxine to 50 mcg daily Take levothyroxine 50 mcg daily on empty stomach (first thing in the morning), give atleast 45 mins to 1 hr before you take any medications, food or fluids other than water. If taking calcium or iron or multivitamin, please wait atleast 4 hours after taking your thyroid medication, wait for atleast 2 hrs before taking prilosec If taking in the evening, wait for 2 hrs after a meal to take thyroid medication Repeat labs in 6 weeks after this dose change documented in this encounter [facility] 06-08-2025 Note HNO ID: [id number] Author: CORY MARIE MD Service: ? Author Type: Physician Type: Progress Notes Filed: 06/08/2025 14:45 Note Text: [facility] Initial Clinic Visit Note CONSULTING PROVIDER: Deena Hanson APRN. CNM My final recommendations will be communicated back to the requesting provider by way of shared Medical record or a letter via [place] mail Subjective: Maximilian Rae is a 25 year old female here to establish care for hypothyroidism. Currently 18 weeks Hypothyroidism was discovered at the age of 12 years. She has seen pediatric endocrinology and was started on levothyroxine. Then was transferred back to her occupational therapist aide, who has monitored labs every 6 months, until she was transitioned to PCP at adult medicine after which labs were done annually. Her dose has not changed since Cause of hypothyroidism: unclear, reports she knows it is not Jake's Current treatment: Tirosint 37.5 mcg daily Prior treatment: same - Takes medication 30 minutes to sometimes 2 hours after last meal, depending on schedule. - Takes vitamins after first or second meal. - Denies significant changes in appetite, sleep, or bowel habits beyond typical -related symptoms. - No significant morning sickness; able to keep food down with mild nausea and selective eating. - Experiencing typical symptoms, including fatigue and changes in appetite. - No family history of thyroid or autoimmune issues. REVIEW OF SYSTEMS: GENERAL:No weight loss, malaise or fevers HEENT:Negative for frequent or significant headaches, No changes in hearing or vision, no nose bleeds or other nasal problems NECK:Negative for lumps, goiter, pain and significant neck swelling RESPIRATORY: Negative for cough, hemoptysis, wheezing or shortness of breath CARDIOVASCULAR: Negative for chest pain, leg swelling or palpitations GASTROINTESTINAL: No nausea, vomiting, or persistent diarrhea GENITOURINARY: no dysuria, Polyuria, no changes in urinary frequency MUSCULOSKELETAL:no muscle aches, arthralgia NEUROLOGIC: no numbness, tingling, no Paresthesias, no headaches SKIN:Negative for lesions, rash, and itching PSYCHIATRIC: Negative for sleep disturbance, mood disorder and recent psychosocial stressors. HEMATOLOGIC/LYMPHATIC/IMMUNOLO GIC:Negative for prolonged bleeding, bruising easily ENDOCRINE: Negative for cold or heat intolerance or goiter ALLERGIES: ALLERGIES No Known Allergies MEDICATIONS: Current Outpatient Medications on File Prior to Visit Medication Sig no115/iron/folic acid ( 19 ORAL) Take 1 tablet by mouth once daily. magnesium citrate 100 mg tab Take 1 tablet by mouth once daily. cholecalciferol (VITAMIN D-3) 400 unit tab Take 400 Units by mouth once daily. levothyroxine (TIROSINT) 37.5 mcg capsule Take 37.5 mcg by mouth daily before breakfast. aspirin, enteric coated (ECOTRIN LOW STRENGTH) 81 mg EC tablet Take 1 tablet by mouth once daily. (Patient not taking: Reported on 05/31/2025) No current facility-administered medications on file prior to visit. PAST MEDICAL HISTORY: PAST MEDICAL HISTORY Diagnosis Date Cystic acne Pt reported Hypothyroidism Pt reported Overactive bladder Pt reported Sessile serrated polyp of colon PAST SURGICAL HISTORY: PAST SURGICAL HISTORY Procedure Laterality Date BLADDER SURGERY HX at age 7 COLONOSCOPY DIAGNOSTIC 10/12/2024 Sessile Serrated polyp EXTRACTION ERUPTED TOOTH/EXR FAMILY HISTORY: FAMILY HISTORY Problem Relation Age of Onset Colon Cancer Other SOCIAL HISTORY: Social History Tobacco Use Smoking status: Never Smokeless tobacco: Never Vaping Use Vaping status: Never Used Substance Use Topics Alcohol use: Never Drug use: Never PHYSICAL EXAM: BP 116/74 (BP Site: Right Arm, BP Position: Sitting, BP Cuff Size: Regular Adult) Pulse 72 Resp 16 Ht 162.6 cm (5' 4) Wt 73.5 kg (162 lb) LMP 02/01/2025 (Exact Date) SpO2 100% BMI 27.81 kg/m? Last 3 Encounter Wt Readings: Date: Wt: 05/31/2025 72.2 kg (159 lb 3.2 oz) 04/29/2025 69.4 kg (153 lb) 04/01/2025 69.9 kg (154 lb) General: Alert and oriented x3, no acute distress Eyes: Anicteric sclera. Extraocular movements are intact. Neck supple, no cervical lymphadenopathy Thyroid: normal size, normal texture, no palpable nodules Lungs: Breathing unlabored, No wheezing, rhonchi, rales Heart: regular rate and rhythm, no murmer Musculoskeletal: Muscular strength intact, No joint swelling, deformity, or tenderness Neuro: Gait normal. Sensation grossly intact. No focal findings Abdomen: deferred Extremities: without edema, no deformities Skin: no rashes/ erythema LABS: 01/06/25 TSH 6.25 (0.4-4.5) Latest Ref Rng 04/29/2025 05/31/2025 TSH 0.270 - 4.200 mIU/L 4.010 6.200 (H) Free T4 0.9 - 1.7 ng/dL 1.0 1.1 Legend: (H) High TSH Date Value Ref Range St (more content not included)... [facility] 06-08-2025 History of Presen t illness Narrative [facility] Initial Clinic Visit Note CONSULTING PROVIDER: Deena Hanson APRN. CNM My final recommendations will be communicated back to the requesting provider by way of shared Medical record or a letter via [place] mail Subjective: Maximilian Rae is a 25 year old female here to establish care for hypothyroidism. Currently 18 weeks Hypothyroidism was discovered at the age of 12 years. She has seen pediatric endocrinology and was started on levothyroxine. Then was transferred back to her occupational therapist aide, who has monitored labs every 6 months, until she was transitioned to PCP at adult medicine after which labs were done annually. Her dose has not changed since Cause of hypothyroidism: unclear, reports she knows it is not Jake's Current treatment: Tirosint 37.5 mcg daily Prior treatment: same - Takes medication 30 minutes to sometimes 2 hours after last meal, depending on schedule. - Takes vitamins after first or second meal. - Denies significant changes in appetite, sleep, or bowel habits beyond typical -related symptoms. - No significant morning sickness; able to keep food down with mild nausea and selective eating. - Experiencing typical symptoms, including fatigue and changes in appetite. - No family history of thyroid or autoimmune issues. REVIEW OF SYSTEMS: GENERAL:No weight loss, malaise or fevers HEENT:Negative for frequent or significant headaches, No changes in hearing or vision, no nose bleeds or other nasal problems NECK:Negative for lumps, goiter, pain and significant neck swelling RESPIRATORY: Negative for cough, hemoptysis, wheezing or shortness of breath CARDIOVASCULAR: Negative for chest pain, leg swelling or palpitations GASTROINTESTINAL: No nausea, vomiting, or persistent diarrhea GENITOURINARY: no dysuria, Polyuria, no changes in urinary frequency MUSCULOSKELETAL:no muscle aches, arthralgia NEUROLOGIC: no numbness, tingling, no Paresthesias, no headaches SKIN:Negative for lesions, rash, and itching PSYCHIATRIC: Negative for sleep disturbance, mood disorder and recent psychosocial stressors. HEMATOLOGIC/LYMPHATIC/IMMUNOLO GIC:Negative for prolonged bleeding, bruising easily ENDOCRINE: Negative for cold or heat intolerance or goiter ALLERGIES: ALLERGIES No Known Allergies MEDICATIONS: Current Outpatient Medications on File Prior to Visit Medication Sig no115/iron/folic acid ( 19 ORAL) Take 1 tablet by mouth once daily. magnesium citrate 100 mg tab Take 1 tablet by mouth once daily. cholecalciferol (VITAMIN D-3) 400 unit tab Take 400 Units by mouth once daily. levothyroxine (TIROSINT) 37.5 mcg capsule Take 37.5 mcg by mouth daily before breakfast. aspirin, enteric coated (ECOTRIN LOW STRENGTH) 81 mg EC tablet Take 1 tablet by mouth once daily. (Patient not taking: Reported on 05/31/2025) No current facility-administered medications on file prior to visit. PAST MEDICAL HISTORY: PAST MEDICAL HISTORY Diagnosis Date Cystic acne Pt reported Hypothyroidism Pt reported Overactive bladder Pt reported Sessile serrated polyp of colon PAST SURGICAL HISTORY: PAST SURGICAL HISTORY Procedure Laterality Date BLADDER SURGERY HX at age 7 COLONOSCOPY DIAGNOSTIC 10/12/2024 Sessile Serrated polyp EXTRACTION ERUPTED TOOTH/EXR FAMILY HISTORY: FAMILY HISTORY Problem Relation Age of Onset Colon Cancer Other SOCIAL HISTORY: Social History Tobacco Use Smoking status: Never Smokeless tobacco: Never Vaping Use Vaping status: Never Used Substance Use Topics Alcohol use: Never Drug use: Never PHYSICAL EXAM: BP 116/74 (BP Site: Right Arm, BP Position: Sitting, BP Cuff Size: Regular Adult) Pulse 72 Resp 16 Ht 162.6 cm (5' 4) Wt 73.5 kg (162 lb) LMP 02/01/2025 (Exact Date) SpO2 100% BMI 27.81 kg/m Last 3 Encounter Wt Readings: Date: Wt: 05/31/2025 72.2 kg (159 lb 3.2 oz) 04/29/2025 69.4 kg (153 lb) 04/01/2025 69.9 kg (154 lb) General: Alert and oriented x3, no acute distress Eyes: Anicteric sclera. Extraocular movements are intact. Neck supple, no cervical lymphadenopathy Thyroid: normal size, normal texture, no palpable nodules Lungs: Breathing unlabored, No wheezing, rhonchi, rales Heart: regular rate and rhythm, no murmer Musculoskeletal: Muscular strength intact, No joint swelling, deformity, or tenderness Neuro: Gait normal. Sensation grossly intact. No focal findings Abdomen: deferred Extremities: without edema, no deformities Skin: no rashes/ erythema LABS: 01/06/25 TSH 6.25 (0.4-4.5) Latest Ref Rng 04/29/2025 05/31/2025 TSH 0.270 - 4.200 mIU/L 4.010 6.200 (H) Free T4 0.9 - 1.7 ng/dL 1.0 1.1 Legend: (H) High TSH Date Value Ref Range Status 05/31/2025 6.200 (H) 0.270 - 4.200 mIU/L Final Comment: If the patient is , TSH reference range varies by gestational period: First Trimester (weeks 9-12): 0.180-2.990 mIU/L Second Trimester: 0.110-3.980 mIU/L Third Trimester: 0.480-4.710 mIU/L Miguel Angel Amezcua et al. A Practical Approach for the Verifications and Determination of Site- and Trimester-Specific Reference Intervals for Thyroid Function tests in . Thyroid, 2019:29:3:412-420. Goyo Pascal, et al. 2017 Guidelines of the [place] Thy[employer] Association for the Diagnosis and Management of Thyroid Disease during and the . Thyroid, 2017:27:3:315-389. Free T4 Date Value Ref Range Status 05/31/2025 1.1 0.9 - 1.7 ng/dL Final ASSESSMENT/PLAN: Hypothyroidism complicated by : - currently on 37.5 mcg of Tirosint (levothyroxine) daily - taking differently now than before - recently labs show elevated TSH, this could be related to vs change in the method of taking the medication - advised increasing the dose to 50 mcg daily - appropriate method of taking medication reviewed- instructions given in writing as well - repeat labs in 6 weeks - refills sent Follow up in 7 weeks Medical Decision Making: Problems: Moderate: 1+ chronic illnesses with change Data: Unique test result(s) reviewed: 3+ Unique test(s) ordered: 2 Independent interpretation of test from other physician/QHCP Risk: Moderate: Drug management Medical Decision Making Level: 4 - Moderate Cory Marie MD Endocrinology Associate Staff [facility] Endocrinology and Metabolism [place] [phone] documented in this encounter [facility] 06-03-2025 Telephone encount er Note Call placed to Pt - endocrinology appt moved to 06/08/2025, at 2:20pm per Dr. Marie. Pt notified and voices understanding. Oumou Chavarria RN June 03, 2025 10:14 AM [facility] 06-03-2025 Miscellaneous Notes Formattin g of this note might be different from the original. Call placed to Pt - endocrinology appt moved to 06/08/2025, at 2:20pm per Dr. Marie. Pt notified and voices understanding. Oumou Chavarria RN June 03, 2025 10:14 AM New Pt appt scheduled for 07/19/25 at 8am. Message sent to Dr. Marie's nurse to see if Pt can be seen sooner. Pt aware that we are trying to get her a sooner appt here in [facility] and will be in contact with her if we are able. If we don't hear back from Dr. Marie's office by end of today, this RN will route to her in the meantime to see if she has suggestions re: P's current levothyroxine dose until Pt can be seen or if she can give permission for Pt to be placed in a sooner appt spot. Nessa Harris RN Images from the original note were not included. Deena Hanson APRN.CNM to [facility] Ob-Optics Engineer Pool 06/02/25 12:45 PM Result Note TSH abnormal. Order for endocrinology consult placed. Please assist with scheduling. Deena Hanson APRN.CNM THYROID STIMULATING HORMONE; T4 FREE/FREE THYROXINE documented in this encounter [facility] 06-02-2025 Telephone encount er Note New Pt appt scheduled for 07/19/25 at 8am. Message sent to Dr. Marie's nurse to see if Pt can be seen sooner. Pt aware that we are trying to get her a sooner appt here in [facility] and will be in contact with her if we are able. If we don't hear back from Dr. Marie's office by end of today, this RN will route to her in the meantime to see if she has suggestions re: P's current levothyroxine dose until Pt can be seen or if she can give permission for Pt to be placed in a sooner appt spot. Nessa Harris RN [facility] 06-02-2025 Telephone encount er Note Images from the original note were not included. Deena Hanson APRN.CNM to [facility] Ob-Optics Engineer Pool 06/02/25 12:45 PM Result Note TSH abnormal. Order for endocrinology consult placed. Please assist with scheduling. Deena Hanson APRN.CNM THYROID STIMULATING HORMONE; T4 FREE/FREE THYROXINE [facility] 05-31-2025 Progress note Formatting of t his note might be different from the original. S: Maximilian Rae is a 25 year old female who presents at 17 weeks gestation for a routine visit. Unsure if feeling flutters. Fatigue is decreasing. Nausea decreasing. Denies headache, visual changes, chest pain, shortness of breath, vaginal bleeding, leakage of fluid, or dysuria. Feeling well, no complaints. O: See flow sheet Gen: No apparent distress Abd: Gravid, non tender ASSESSMENT/PLAN: 1. 16 weeks gestation of 2. Supervision of normal first , antepartum (HCC) - ICD9: V22.0, ICD10: Z34.00 3. Hypothyroidism, unspecified type - ICD9: 244.9, ICD10: E03.9 - Continue vitamin daily - Has not started ASA- educated on rational and patient unsure if will start taking - Continue Synthroid 37.5 mcg PO daily - Thyroid studies every 4 weeks- standing order placed - RTO 3 weeks for anatomy and MANGO Hanson APRN.CNM [facility] 05-31-2025 Miscellaneous Notes Formattin g of this note might be different from the original. S: Maximilian Rae is a 25 year old female who presents at 17 weeks gestation for a routine visit. Unsure if feeling flutters. Fatigue is decreasing. Nausea decreasing. Denies headache, visual changes, chest pain, shortness of breath, vaginal bleeding, leakage of fluid, or dysuria. Feeling well, no complaints. O: See flow sheet Gen: No apparent distress Abd: Gravid, non tender ASSESSMENT/PLAN: 1. 16 weeks gestation of 2. Supervision of normal first , antepartum (HCC) - ICD9: V22.0, ICD10: Z34.00 3. Hypothyroidism, unspecified type - ICD9: 244.9, ICD10: E03.9 - Continue vitamin daily - Has not started ASA- educated on rational and patient unsure if will start taking - Continue Synthroid 37.5 mcg PO daily - Thyroid studies every 4 weeks- standing order placed - RTO 3 weeks for anatomy US and MANGO Hanson APRN.CNM documented in this encounter [facility] 05-31-2025 Instructions Karin Vargas LPN - 05/31/2025 8:02 AM EDT SEQUENTIAL SCREENINGS The [facility] offers sequential screenings for women who are interested in screenings for chromosomal abnormalities and certain defects during a . The sequential screen combines ultrasound and blood tests to determine the risk of chromosomal abnormalities, including Down's Syndrome (Trisomy 21) and Trisomy 18, as well as open neural tube defects including spina bifida. Ultrasound examination is performed between 11 weeks and 13 weeks gestational age. Blood tests are drawn after the ultrasound and again later in the between 15 and 21 weeks gestational age. Please let your physician know if you are interested in this testing. It will require an appointment with our technician biological health. This is not an ultrasound performed by a physician in our office during a routine visit. SIGNS AND SYMPTOMS OF LABOR 1. Contractions every 10 minutes or more often 2. Clear, pink, or brownish fluid (water) leaking from vagina 3. Feeling that baby is pushing down, pressure 4. Low, dull backache 5. Cramps that feel like a period 6. Cramps with or without diarrhea If you notice any of the above symptoms, contact our office at [phone] and ask to speak with a nurse. After hours, you can call doctors registry at [phone] OR call [facility] at [phone] and ask to have the doctor marketing operations manager paged. If you consider this an emergency, dial 9--9 or go to your nearest emergency department. NEED HELP? Are you dealing with a violent or abusive relationship? Are you a victim of rape or sexual assult? Call [facility] ([place]) 24 hour Crisis Hotline: 784.633.8599 or 015-460-7009. MANUAL Your Guide to a Healthy manual is now on-line. Visit [email or web address] to download your free copy documented in this encounter [facility] 04-29-2025 Progress note Formatting of t his note might be different from the original. S: Maximilian Rae is a 25 year old female who presents at 12 weeks gestation for a routine visit. Just completed 1st trimester ultrasound. C/O daily nausea without emesis. Not taking any medications. Reviewed appropriate medications/remedies for nausea. Denies headache, visual changes, chest pain, shortness of breath, vaginal bleeding, leakage of fluid, or dysuria. O: See flow sheet Gen: No apparent distress Abd: Gravid, nontender ASSESSMENT/PLAN: 1. Supervision of normal first , antepartum 2. 12 weeks gestation of - Start ASA nightly - Continue PNV daily - Declines aneuploidy screening - labs today 3. Hypothyroidism, unspecified type - ICD9: 244.9, ICD10: E03.9 - Instructed patient on importance of taking on an empty stomach either first thing in the morning or at bedtime. - check TSH and free T4 today - continue current dose of Synthroid - Patient initially treated through PCP but labs not completed since 11/2024 - Patient aware will need levels drawn every 4 weeks - RTO 4 weeks or sooner if needed Deena Hanson APRN.CNM [facility] 04-29-2025 Miscellaneous Notes Formattin g of this note might be different from the original. S: Maximilian Rae is a 25 year old female who presents at 12 weeks gestation for a routine visit. Just completed 1st trimester ultrasound. C/O daily nausea without emesis. Not taking any medications. Reviewed appropriate medications/remedies for nausea. Denies headache, visual changes, chest pain, shortness of breath, vaginal bleeding, leakage of fluid, or dysuria. O: See flow sheet Gen: No apparent distress Abd: Gravid, nontender ASSESSMENT/PLAN: 1. Supervision of normal first , antepartum 2. 12 weeks gestation of - Start ASA nightly - Continue PNV daily - Declines aneuploidy screening - labs today 3. Hypothyroidism, unspecified type - ICD9: 244.9, ICD10: E03.9 - Instructed patient on importance of taking on an empty stomach either first thing in the morning or at bedtime. - check TSH and free T4 today - continue current dose of Synthroid - Patient initially treated through PCP but labs not completed since 11/2024 - Patient aware will need levels drawn every 4 weeks - RTO 4 weeks or sooner if needed Deena Hanson APRN.CNM documented in this encounter [facility] 04-29-2025 Instructions Deena Hanson APRN.CNM - 04/29/2025 9:53 AM EDT As you may already know, morning sickness can often be more appropriately called evening sickness or tytxq-rxtnzq-pl-the-day sickness. While there are the fadumo few, most women (50-90%) experience some degree of nausea, some have vomiting, and a few develop a severe form of vomiting during called hyperemesis gravidarum. What causes the nausea and vomiting of ? We can't explain why some people feel fine and others are green for months. Even the same woman may feel vastly different in each . There is some relationship between nausea and the level of the hormone hCG. In twin pregnancies, and in other situations where the hCG is greater than expected, nausea and vomiting tend to be worse. In a destined for miscarriage, hCG levels tend to be low, and nausea is often less severe. This being said, a lack of nausea doesn't guarantee that the is destined for miscarriage. The fact that nausea and vomiting are often signs of a healthy can offer a silver lining in the dark cloud of miserable nausea. How long will the nausea last? Fortunately, for most women, nausea and vomiting are a first trimester event, peaking at week 9-10 and waning by week 14-16. When you are feeling bad the weeks can go by slowly but most moms do feel tremendously better by the middle of the . Whether morning sickness is a brief experience or lasts through most of the , there are treatments that can make the weeks or months more tolerable. What can you do about it? Diet: See what works for you. Try eating bland dry foods, and avoid fatty or spicy foods. It is okay to eat a less than perfectly balanced diet in the first trimester. Have your liquids separately from dry foods. Try sports drinks, water, clear juices, Diomedes-aid, or non-caffeinated tea. Avoid carbonated beverages that fill up your stomach. Try eating lots of little meals. If you tend to feel sick when you first wake up, leave crackers next to the bed for a quick snack before rising. Keeping healthy snacks with you all day to nibble when you feel queasy can sometimes even prevent nausea from starting. vitamins and nausea: Pre-rich vitamins can sometimes worsen nausea in . While folate is necessary, especially early in the , it comes as a smaller pill that many people find more tolerable than the complete vitamin pill. Ask your practitioner if it is okay to temporarily replace vitamins and iron with just a folate pill if you find a significant worsening in the level of your nausea from the vitamins. Alternative therapies: Acupressure may be used to treat nausea in , and is not known to have any risks for the fetus. Wristbands (marketed for seasickness) that put pressure on an acupressure point at the wrist are often available at drugstores or travel stores. Carin root is used for nausea in many traditional cultures. Some women take fresh grated carin or carin tablets. It is possible that the pill form contains other ingredients or contaminants, so you may want to try fresh carin first. Medications: Emetrol is the only nausea medication approved for use in . It is available over the counter and is soothing to the stomach. A prescription medication called Bendectin was available in the -1979's and was shown to be safe in , but the company stopped marketing it in the [place] due to the costs of liability coverage. Bendectin contained 10 milligrams of vitamin B6 and 10 milligrams of Doxylamine. Two tablets were given at bedtime and a total of up to 4 tablets could be used in a 24-hour period. Interestingly, Unisom , which contains a higher dose (25 mg.) of the same medication, Doxylamine, is currently marketed as an ggxu-une-ynmaizs sleeping pill. Ask your practitioner if creating a vitamin B6/Doxylamine combination with qcia-icp-akmklou medications would be safe for you. Prescription medications like Compazine and Phenergan can be used if the benefits outweigh possible risks, but these have not been clearly shown to be safe in . Zofran , an expensive anti-nausea medication often used to treat nausea from chemotherapy, can also be used. Can I throw up so much it harms the baby? The act of vomiting cannot hurt your fetus, which is protected inside the uterus. If you get dehydrated or develop a metabolic imbalance, this can be unhealthy. As long as you can keep down liquids, you and your baby will generally do all right. Eat when you feel able. If you are unable to keep anything down, or if you notice potential signs of dehydration such as lightheadedness, or concentrated and/or infrequent urination, call your practitioner. Some women need brief hospital admission for intravenous fluids and anti-nausea medications if their condition becomes severe. This severe form of nausea and vomiting is called Hyperemesis Gravidarum. As with many symptoms of , remind yourself that this, too, shall pass, and you'll have a wonderful baby to show for it! TREATMENT OPTIONS, SHORT VERSION: Frequent small meals Hydrate throughout day [employer] wrist pressure point applicators Carin root (powdered, in capsules) 250mg four times a day Vitamin B6 25 mg tablet three times a day Also may be taken with half a tablet of Unisom three times a day (Doxylamine 12.5 mg) If severe (weight loss, dehydration), call us and come in for IV hydration and possible medication in the form of injections. Prescription medications such as Phenergan, Compazine, Reglan SEQUENTIAL SCREENINGS The [facility] offers sequential screenings for women who are interested in screenings for chromosomal abnormalities and certain defects during a . The sequential screen combines ultrasound and blood tests to determine the risk of chromosomal abnormalities, including Down's Syndrome (Trisomy 21) and Trisomy 18, as well as open neural tube defects including spina bifida. Ultrasound examination is performed between 11 weeks and 13 weeks gestational age. Blood tests are drawn after the ultrasound and again later in the between 15 and 21 weeks gestational age. Please let your physician know if you are interested in this testing. It will require an appointment with our technician biological health. This is not an ultrasound performed by a physician in our office during a routine visit. SIGNS AND SYMPTOMS OF LABOR 1. Contractions every 10 minutes or more often 2. Clear, pink, or brownish fluid (water) leaking from vagina 3. Feeling that baby is pushing down, pressure 4. Low, dull backache 5. Cramps that feel like a period 6. Cramps with or without diarrhea If you notice any of the above symptoms, contact our office at [phone] and ask to speak with a nurse. After hours, you can call doctors registry at [phone] OR call [facility] at [phone] and ask to have the doctor marketing operations manager paged. If you consider this an emergency, dial 9-1-1 or go to your nearest emergency department. NEED HELP? Are you dealing with a violent or abusive relationship? Are you a victim of rape or sexual assult? Call [facility] ([place]) 24 hour Crisis Hotline: 953.776.5239 or 141-480-3731. MANUAL Your Guide to a Healthy manual is now on-line. Visit [email or web address] to download your free copy documented in this encounter [facility] 04-01-2025 Note HNO ID: [id number] Author: TIANA EDMONDS APRN.CNP Service: ? Author Type: Nurse Practitioner Type: Progress Notes Filed: 04/01/2025 09:12 Note Text: Patient declined reconstructive surgeon. INITIAL OB ASSESSMENT HPI: Maximilian is a 25 year old White here to establish Obstetrical Care. Patient's last menstrual period was 02/01/2025 (exact date). from OB Dating Form. was planned Complaints: reported nausea OB History Gravida2 Para0 Term0 Preterm0 AB1 Living0 SAB1 IAB0 Ectopic0 Multiple0 Live Births0 Previous history: Prior : No History of 4th degree laceration: No History of shoulder dystocia: No History of Hypertensive disorders including pre-eclampsia or gestational hypertension: No History of gestational diabetes: No Patient's Risk Screening for delivery: Have you had a prior sandoval between 20w and 36w6d? No How many pregnancies have you had before? 1 Did you have a previous baby with a GBS Infection? No Please select all that apply for any prior : N/A MEDICAL/PSYCHOSOCIAL HISTORY: History of hemorrhage or bleeding concerns: No Thyroid Disease: Hypothyroidism History of chronic hypertension: No History of pre-existing diabetes: No No results found for: ABORHD BMI 26.43 kg/(m2) Last Pap: History of abnormal pap: No Pt reported none Prior treatment for cervical dysplasia: none. Last HPV: History of STDs: N/A Partner History of STDs: None Did you have a partner with Herpes? No Tobacco use: No E-Cigarette/Vaping Use: No Caffeine use: Yes Drug use: No Alcohol use: No Multivitamin with Folic acid: Yes Would refuse blood transfusion if medically necessary: No Social Needs: How often does this describe you? I don't have enough money to pay my bills: Never Within the past 12 months, have you worried that your food would run out before you had money to buy more? Never In the past 12 months, has lack of reliable transportation kept you from going to medical appointments or work, or from getting things needed for daily living? Never In the past 12 months, have you had any concerns about having a place to live, or about the condition or quality of your housing? Never Would you like more information on any of the following (please check all that apply)? 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 No Do you have a history of abuse or trauma that may impact your experience? No Are you currently employed? Yes Depression/Anxiety Screening: denies symptoms of depression. OB Depression and Anxiety Screening- This Encounter Over the past 2 weeks have you felt down, depressed, or hopeless? Negative Over the past two weeks, have you felt little interest or pleasure in doing things?? Negative Feeling nervous, anxious or on edge 0-Not at all Not being able to stop or control worrying 0-Not al all Anxiety Pre-Screening Total (If >/= 3 additional questions will be reviewed) 0 Genetic Screening: Partner present: Yes Patient verbalized knowledge of partner family health history: Yes Do you or your partner have any personal or family history of defects not previously discussed: No Do you have history of a complicated by anomaly, genetic condition, or demise: No Preeclampsia Risk Screening: Screening for prevention of preeclampsia: High risk factors: None Moderate risk ractors: Nulliparity OB Risk Screening: Completed, no positive findings documented. 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 magnesium citrate 100 mg tab Take by mouth once daily. cholecalciferol (VITAMIN D-3) 400 unit tab Take 400 Units by mouth once daily. levothyroxine (TIROSINT) 37.5 mcg capsule Take 37.5 mcg by mouth daily before breakfast. Amoxicillin 500 mg tablet Take 500 mg by mouth two times a day. oxybutynin ER (DITROPAN XL) 10 mg 24 hr tablet Take 1 tablet by mouth once daily. (Patient not taking: Reported on 04/01/2025) No current facility-administered medications for this visit. Allergies As of Date: 04/01/2025 (No Known Allergies) Fully Assessed 04/01/2025 Does patient have penicillin allergy: No REVIEW OF SYSTEMS: GENERAL: Negative for: Fever or Chills HEENT: Negative for: Headache, Impaired Vision, Ringing in Ears, Nosebleeds NECK: Negative for: S (more content not included)... [facility] 04-01-2025 History of Presen t illness Narrative Patient declined reconstructive surgeon. INITIAL OB ASSESSMENT HPI: Maximilian is a 25 year old White here to establish Obstetrical Care. Patient's last menstrual period was 02/01/2025 (exact date). from OB Dating Form. was planned Complaints: reported nausea OB History Gravida2 Para0 Term0 Preterm0 AB1 Living0 SAB1 IAB0 Ectopic0 Multiple0 Live Births0 Previous history: Prior : No History of 4th degree laceration: No History of shoulder dystocia: No History of Hypertensive disorders including pre-eclampsia or gestational hypertension: No History of gestational diabetes: No Patient's Risk Screening for delivery: Have you had a prior sandoval between 20w and 36w6d? No How many pregnancies have you had before? 1 Did you have a previous baby with a GBS Infection? No Please select all that apply for any prior : N/A MEDICAL/PSYCHOSOCIAL HISTORY: History of hemorrhage or bleeding concerns: No Thyroid Disease: Hypothyroidism History of chronic hypertension: No History of pre-existing diabetes: No No results found for: ABORHD BMI 26.43 kg/(m^2) Last Pap: History of abnormal pap: No Pt reported none Prior treatment for cervical dysplasia: none. Last HPV: History of STDs: N/A Partner History of STDs: None Did you have a partner with Herpes? No Tobacco use: No E-Cigarette/Vaping Use: No Caffeine use: Yes Drug use: No Alcohol use: No Multivitamin with Folic acid: Yes Would refuse blood transfusion if medically necessary: No Social Needs: How often does this describe you? I don't have enough money to pay my bills: Never Within the past 12 months, have you worried that your food would run out before you had money to buy more? Never In the past 12 months, has lack of reliable transportation kept you from going to medical appointments or work, or from getting things needed for daily living? Never In the past 12 months, have you had any concerns about having a place to live, or about the condition or quality of your housing? Never Would you like more information on any of the following (please check all that apply)? 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 No Do you have a history of abuse or trauma that may impact your experience? No Are you currently employed? Yes Depression/Anxiety Screening: denies symptoms of depression. OB Depression and Anxiety Screening- This Encounter Over the past 2 weeks have you felt down, depressed, or hopeless? Negative Over the past two weeks, have you felt little interest or pleasure in doing things? Negative Feeling nervous, anxious or on edge 0-Not at all Not being able to stop or control worrying 0-Not al all Anxiety Pre-Screening Total (If >/= 3 additional questions will be reviewed) 0 Genetic Screening: Partner present: Yes Patient verbalized knowledge of partner family health history: Yes Do you or your partner have any personal or family history of defects not previously discussed: No Do you have history of a complicated by anomaly, genetic condition, or demise: No Preeclampsia Risk Screening: Screening for prevention of preeclampsia: High risk factors: None Moderate risk ractors: Nulliparity OB Risk Screening: Completed, no positive findings documented. 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 magnesium citrate 100 mg tab Take by mouth once daily. cholecalciferol (VITAMIN D-3) 400 unit tab Take 400 Units by mouth once daily. levothyroxine (TIROSINT) 37.5 mcg capsule Take 37.5 mcg by mouth daily before breakfast. Amoxicillin 500 mg tablet Take 500 mg by mouth two times a day. oxybutynin ER (DITROPAN XL) 10 mg 24 hr tablet Take 1 tablet by mouth once daily. (Patient not taking: Reported on 04/01/2025) No current facility-administered medications for this visit. Allergies As of Date: 04/01/2025 (No Known Allergies) Fully Assessed 04/01/2025 Does patient have penicillin allergy: No REVIEW OF SYSTEMS: GENERAL: Negative for: Fever or Chills HEENT: Negative for: Headache, Impaired Vision, Ringing in Ears, Nosebleeds NECK: Negative for: Swelling, Pain, Stiffness RESPIRATORY: Negative for: Cough, Shortness of breath, Wheezing GASTROINTESTINAL: Negative for: Heartburn, Constipation, Diarrhea, Blood in stool, Vomiting and Positive for: Nausea MUSCULOSKELETAL: Negative for: Muscle or joint pain, stiffness, Joint swelling NEUROLOGIC/PSYCHIATRIC: Negative for: Weakness, Paralysis, Numbness, Tingling, Tremor, Anxiety, Depression, Memory loss SKIN: Negative for: Rash, Itching GENITOURINARY: Negative for: vaginal itching, vaginal discharge, hematuria or dysuria SENSITIVE EXAM: The sensitive examination was discussed with the Patient or Patient's Authorized Electrical Power Station Technician. As applicable, any other physician, advance practice provider, medical student, or other health professional student that will be observing or involved in the sensitive examination for educational or training purposes was discussed with the Patient or Authorized Electrical Power Station Technician. The Patient or Authorized Electrical Power Station Technician has agreed to proceed with the sensitive examination. (Sensitive examination includes inspection and/or palpation of the breasts, pelvis, prostate and anorectal regions). PHYSICAL EXAM: BP 116/58 Ht 5' 4 (1.63m) Wt 154 lb (69.9kg) LMP 02/01/2025 BMI 26.42 kg/(m^2). GENERAL: pleasant in no apparent distress DERMATOLOGY: Normal, without lesions, non-icteric, and non-hirsute NECK: Supple, full range of motion, no adenopathy, and thyroid normal CHEST: Normal inspiratory effort BREAST: soft, non-tender, symmetric, no dominant mass, normal nipple-areolar complex, no lymphadenopathy, and no nipple discharge ABDOMEN: soft, non-tender, and no masses NEURO: alert and oriented x3,exam grossly non-focal PELVIS: External genitalia normal without lesions. Perineal body intact. No vaginal or cervical lesions. Cervix closed. No adnexal masses or tenderness. Clinical Pelvimetry: Pelvimetry clinically assessed as adequate Limited OB ultrasound exam: single intrauterine . POCUS performed. +cardiac activity, CRL consistent with LMP. Tiana Edmonds APRN.CNP ASSESSMENT: 25 year old at 8w3d wks gestational age PLAN: 1) Patient oriented to practice. Patient given new OB orientation folder. Discussed nutrition, folic acid supplementation, dietary guidelines, exercise, smoking, alcohol, caffeine, and drug use. Discussed gestational weight gain guidelines. Discussed routine OB labs including STD/HIV. Discussed how to access Your guide to a health and the Psychotherapist Social Worker. Reviewed midwifery and purifying plant operator services that are available. 2) Screening: Hemoglobin A1C: ordered Baby Aspirin: The patient has been counseled about the potential benefits of low dose aspirin in and our recommendation that this be offered to all patients, regardless of whether they meet the high risk criteria specified above. She Accepts Aneuploidy Screening: Discussed aneuploidy screening, nuchal translucency/first trimester early anatomy ultrasound and NIPT. The risks/benefits and limitations of NIPT/aneuploidy screening were reviewed including the potential for false negative and false positive results. The availability of genetic counseling was reviewed. Information on aneuploidy screening was provided. The patient chooses to proceed with First trimester early anatomy ultrasound (12-13w6d) Myriad Carrier Screening: Discussed myriad carrier screening. We discussed the availability of professional-society guided carrier screening and reviewed the conditions screened and limitations of screening. The availability of genetic counseling was reviewed. Information on carrier screening was provided. The patient Declines 3) Patient offered option of Virtual Visits. Patient unsure. May consider in future. 4) Thyroid Disease: TSH ordered Follow up in 4 weeks or sooner prn. Tiana Edmonds APRN.ELENA documented in this encounter [facility] 04-01-2025 Instructions Karin Vargas LPN - 04/01/2025 7:51 AM EDT Please select the following link to access the [facility] Your Guide to a Healthy . [email or web address] documented in this encounter [facility] 01-06-2025 Evaluation + Plan note Associated Problem(s): Acne vulgaris Controlled with Amoxicillin [facility] 01-06-2025 Miscellaneous Notes Associate d Problem(s): Acne vulgaris Controlled with Amoxicillin Associated Problem(s): Hypothyroidism, acquired, autoimmune Stable, currently on levothyroxine 37.5mg TSH pending documented in this encounter [facility] 01-06-2025 Evaluation + Plan note Associated Problem(s): Hypothyroidism, acquired, autoimmune Stable, currently on levothyroxine 37.5mg TSH pending [facility] 01-06-2025 Note OUTPATIENT WELL WOMA N PROGRESS NOTE Subjective: Maximilian Walker is a 24 y.o. female and is here for a comprehensive physical exam. The patient reports no problems. Is actively trying to conceive. Had recent appt with OBGYN for miscarriage. No longer on Ditropan due to /Tring to conceive and continued Amoxicillin. Also taking a PNV. Diet: cooking mostly at home Exercise: not as much right now with tax season Immunizations: declines Last eye exam: June 2024, did have slight change in Rx. Last dental visit: every 6 months Last colonoscopy if >45y: 09/2024, every 3 years due to polyp finding Any high risk behavior: denies Tobacco use or exposure: denies Alcohol use: denies Females: Last Mammogram: na Last Pap/HPV: 02/2023 Last Dexa >65: na LMP: every 30 days. Lasts 7 days. The following portions of the patient's history were reviewed and updated as appropriate: allergies, current medications, past family history, past medical history, past social history, past surgical history and problem list. Past Medical History: Diagnosis Date Disease of thyroid gland 2001 Past Surgical History: Procedure Laterality Date COLONOSCOPY WISDOM TOOTH EXTRACTION 09/2023 Social History Tobacco Use Smoking status: Never Smokeless tobacco: Never Substance Use Topics Alcohol use: Never Drug use: Never Family History Problem Relation Age of Onset Diabetes Paternal Grandmother No Known Allergies Review of Systems Review of Systems Gastrointestinal: Abdominal cramping Objective: BP 118/81 (BP Location: Left arm, Patient Position: Sitting, BP Cuff Size: X-large Adult) Pulse 61 Temp 98.3 degrees F (36.8 degrees C) (Oral) Resp 18 Ht 5' 4 Wt 64.7 kg (142 lb 11.2 oz) SpO2 99% BMI 24.49 kg/m Physical Exam Vitals and nursing note reviewed. Constitutional: General: She is not in acute distress. Appearance: She is well-developed. She is not diaphoretic. HENT: Head: Normocephalic and atraumatic. Right Ear: External ear normal. Left Ear: External ear normal. Nose: Nose normal. Eyes: General: Right eye: No discharge. Left eye: No discharge. Conjunctiva/sclera: Conjunctivae normal. Cardiovascular: Rate and Rhythm: Normal rate. Pulmonary: Effort: Pulmonary effort is normal. No respiratory distress. Breath sounds: Normal breath sounds. Abdominal: General: There is no distension. Palpations: Abdomen is soft. Tenderness: There is no abdominal tenderness. Musculoskeletal: General: Normal range of motion. Cervical back: Normal range of motion. Skin: Findings: No rash. Neurological: General: No focal deficit present. Mental Status: She is alert. Psychiatric: Mood and Affect: Mood normal. Behavior: Behavior normal. Thought Content: Thought content normal. Judgment: Judgment normal. Assessment: Healthy female exam. Plan: 1. Patient Counseling: --Nutrition: Stressed importance of moderation in sodium/caffeine intake, saturated fat and cholesterol, caloric balance, sufficient intake of fresh fruits, vegetables, fiber, calcium, iron, and 1 mg of folate supplement per day (for females capable of ). --Exercise: Stressed the importance of regular exercise. --Dental health: Discussed importance of regular dental visits. --Immunizations reviewed. --Discussed benefits of screening mammograms, pap smears, and colonoscopy. 2. Discussed the patient's BMI with her. The BMI is in the acceptable range 3. Follow up in one year I am managing Maximilian Walker for complex chronic condition(s) serving as the focal point for the patient's care for consistency and continuity over time. Problem List Items Addressed This Visit Hypothyroidism, acquired, autoimmune Stable, currently on levothyroxine 37.5mg TSH pending Relevant Medications levothyroxine (SYNTHROID, LEVOTHROID) 75 MCG tablet Other Relevant Orders TSH with Reflex Free T4 Acne vulgaris Controlled with Amoxicillin Relevant Medications amoxicillin (AMOXIL) 500 MG capsule Other Visit Diagnoses Well adult exam - Primary AUTHENTICATED BY RAMIN ADRIAN, ON 01/06/2025 08:53:20 [facility] 01-06-2025 History of Presen t illness Narrative OUTPATIENT WELL WOMAN PROGRESS NOTE Subjective: Maximilian Walker is a 24 y.o. female and is here for a comprehensive physical exam. The patient reports no problems. Is actively trying to conceive. Had recent appt with OBGYN for miscarriage. No longer on Ditropan due to /Tring to conceive and continued Amoxicillin. Also taking a PNV. Diet: cooking mostly at home Exercise: not as much right now with tax season Immunizations: declines Last eye exam: June 2024, did have slight change in Rx. Last dental visit: every 6 months Last colonoscopy if >45y: 09/2024, every 3 years due to polyp finding Any high risk behavior: denies Tobacco use or exposure: denies Alcohol use: denies Females: Last Mammogram: na Last Pap/HPV: 02/2023 Last Dexa >65: na LMP: every 30 days. Lasts 7 days. The following portions of the patient's history were reviewed and updated as appropriate: allergies, current medications, past family history, past medical history, past social history, past surgical history and problem list. Past Medical History: Diagnosis Date Disease of thyroid gland 2001 Past Surgical History: Procedure Laterality Date COLONOSCOPY WISDOM TOOTH EXTRACTION 09/2023 Social History Tobacco Use Smoking status: Never Smokeless tobacco: Never Substance Use Topics Alcohol use: Never Drug use: Never Family History Problem Relation Age of Onset Diabetes Paternal Grandmother No Known Allergies Review of Systems Review of Systems Gastrointestinal: Abdominal cramping Objective: BP 118/81 (BP Location: Left arm, Patient Position: Sitting, BP Cuff Size: X-large Adult) Pulse 61 Temp 98.3 F (36.8 C) (Oral) Resp 18 Ht 5' 4 Wt 64.7 kg (142 lb 11.2 oz) SpO2 99% BMI 24.49 kg/m Physical Exam Vitals and nursing note reviewed. Constitutional: General: She is not in acute distress. Appearance: She is well-developed. She is not diaphoretic. HENT: Head: Normocephalic and atraumatic. Right Ear: External ear normal. Left Ear: External ear normal. Nose: Nose normal. Eyes: General: Right eye: No discharge. Left eye: No discharge. Conjunctiva/sclera: Conjunctivae normal. Cardiovascular: Rate and Rhythm: Normal rate. Pulmonary: Effort: Pulmonary effort is normal. No respiratory distress. Breath sounds: Normal breath sounds. Abdominal: General: There is no distension. Palpations: Abdomen is soft. Tenderness: There is no abdominal tenderness. Musculoskeletal: General: Normal range of motion. Cervical back: Normal range of motion. Skin: Findings: No rash. Neurological: General: No focal deficit present. Mental Status: She is alert. Psychiatric: Mood and Affect: Mood normal. Behavior: Behavior normal. Thought Content: Thought content normal. Judgment: Judgment normal. Assessment: Healthy female exam. Plan: 1. Patient Counseling: --Nutrition: Stressed importance of moderation in sodium/caffeine intake, saturated fat and cholesterol, caloric balance, sufficient intake of fresh fruits, vegetables, fiber, calcium, iron, and 1 mg of folate supplement per day (for females capable of ). --Exercise: Stressed the importance of regular exercise. --Dental health: Discussed importance of regular dental visits. --Immunizations reviewed. --Discussed benefits of screening mammograms, pap smears, and colonoscopy. 2. Discussed the patient's BMI with her. The BMI is in the acceptable range 3. Follow up in one year I am managing Maximilian Walker for complex chronic condition(s) serving as the focal point for the patient's care for consistency and continuity over time. Problem List Items Addressed This Visit Hypothyroidism, acquired, autoimmune Stable, currently on levothyroxine 37.5mg TSH pending Relevant Medications levothyroxine (SYNTHROID, LEVOTHROID) 75 MCG tablet Other Relevant Orders TSH with Reflex Free T4 Acne vulgaris Controlled with Amoxicillin Relevant Medications amoxicillin (AMOXIL) 500 MG capsule Other Visit Diagnoses Well adult exam - Primary documented in this encounter [facility] 01-05-2025 Telephone encount er Note Aware of results. Dwight Ballard RN Unfortunately, it appears that if she was preg then she is not now, but we can not confirm she was preg. [facility] 01-05-2025 Miscellaneous Notes Formattin g of this note might be different from the original. Aware of results. Dwight Ballard RN Unfortunately, it appears that if she was preg then she is not now, but we can not confirm she was preg. documented in this encounter [facility] 01-04-2025 Note Addended by: SLAVA HAMM on: 01/04/2025 02:34 PM Modules accepted: Orders [facility] 01-04-2025 Miscellaneous Notes Addended by: SLAVA SANCHEZ on: 01/04/2025 02:34 PM Modules accepted: Orders documented in this encounter [facility] 01-04-2025 Note HNO ID: [id number] Author: SLAVA SANCHEZ MD Service: ? Author Type: Physician Type: Progress Notes Filed: 01/04/2025 14:34 Note Text: HPI: Maximilian Walker is a 24 year old No obstetric history on file. who presents @ 6+3 wks by sure LMP of 11/20 but states she bled a little yest. Taking PNV. She stopped taking ditropan. HISTORY: OB History No obstetric history on file. PAST MEDICAL HISTORY Diagnosis Date Sessile serrated polyp of colon PAST SURGICAL HISTORY Procedure Laterality Date BLADDER SURGERY HX at age 7 COLONOSCOPY DIAGNOSTIC 10/12/2024 Sessile Serrated polyp REVIEW OF SYSTEMS: General : No weight loss, malaise or fevers. Abdomen: No abdominal pain, nausea, vomiting, diarrhea, or constipation. No bloating, early satiety, indigestion, or increased flatulence. Bladder: No dysuria, gross hematuria, urinary frequency, urinary urgency, or incontinence. Breast: No breast lumps, nipple d/c, overlying skin changes, redness or skin retraction. PHYSICAL EXAM: GENERAL: Well developed, well nourished in no apparent distress ASSESSMENT/PLAN: 1. Amenorrhea, secondary - ICD9: 626.0, ICD10: N91.1 Follow accordingly, reviewed dietary restrictions. Sab precautions reviewed. - TYPE + SCREEN - HCG QUANTITATIVE Slava Sanchez MD, MD [facility] 01-04-2025 History of Presen t illness Narrative HPI: Maximilian Walker is a 24 year old No obstetric history on file. who presents @ 6+3 wks by sure LMP of 11/20 but states she bled a little yest. Taking PNV. She stopped taking ditropan. HISTORY: OB History No obstetric history on file. PAST MEDICAL HISTORY Diagnosis Date Sessile serrated polyp of colon PAST SURGICAL HISTORY Procedure Laterality Date BLADDER SURGERY HX at age 7 COLONOSCOPY DIAGNOSTIC 10/12/2024 Sessile Serrated polyp REVIEW OF SYSTEMS: General : No weight loss, malaise or fevers. Abdomen: No abdominal pain, nausea, vomiting, diarrhea, or constipation. No bloating, early satiety, indigestion, or increased flatulence. Bladder: No dysuria, gross hematuria, urinary frequency, urinary urgency, or incontinence. Breast: No breast lumps, nipple d/c, overlying skin changes, redness or skin retraction. PHYSICAL EXAM: GENERAL: Well developed, well nourished in no apparent distress ASSESSMENT/PLAN: 1. Amenorrhea, secondary - ICD9: 626.0, ICD10: N91.1 Follow accordingly, reviewed dietary restrictions. Sab precautions reviewed. - TYPE + SCREEN - HCG QUANTITATIVE Slava Sanchez MD, MD documented in this encounter [facility] 10-13-2024 Telephone encount er Note Please let patient know that she was found to have 1 colon polyp which was removed. She is to get a another colonoscopy in 3 years as it came back as a sessile serrate polyp. She was recommended to avoid taking Ditropan if possible because it causes constipation. She should eat a high-fiber diet. Impression: - One 10 mm polyp at the hepatic flexure, removed with a cold snare. Resected and retrieved. Injected. Clips were placed. 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 Tattooed. Recommendation: - High fiber diet. - Continue present medications. Avoid Ditropan if possible; causes constipation. - Await pathology results. - Repeat colonoscopy in 3 years for surveillance. [facility] Work Phone: 10-13-2024 Miscellaneous Notes Formattin g of this note might be different from the original. Please let patient know that she was found to have 1 colon polyp which was removed. She is to get a another colonoscopy in 3 years as it came back as a sessile serrate polyp. She was recommended to avoid taking Ditropan if possible because it causes constipation. She should eat a high-fiber diet. Impression: - One 10 mm polyp at the hepatic flexure, removed with a cold snare. Resected and retrieved. Injected. Clips were placed. 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 Tattooed. Recommendation: - High fiber diet. - Continue present medications. Avoid Ditropan if possible; causes constipation. - Await pathology results. - Repeat colonoscopy in 3 years for surveillance. documented in this encounter [facility] 10-12-2024 Note HNO ID: [id number] Author: JOSE GALLOWAY RN Service: Nursing Author Type: Registered Nurse Type: Nursing Progress Note Filed: 10/12/2024 14:21 Note Text: Physician at bedside to disucss procedure/findngs with patient. [facility] 10-12-2024 Nurse Note Physician at bedside to disucss procedure/findngs with patient. [facility] 10-12-2024 Nurse Note Physician at bedside to disucss procedure/findngs with patient. documented in this encounter [facility] 10-12-2024 Note Formatting of this n ote might be different from the original. The patient received a copy of Colonoscopy discharge instructions that contain information for how to contact the physician who performed the procedure and when to seek medical care. [facility] 10-12-2024 Miscellaneous Notes Formattin g of this note might be different from the original. The patient received a copy of Colonoscopy discharge instructions that contain information for how to contact the physician who performed the procedure and when to seek medical care. Endo clip, Resolution 360, inserted into hepatic flexure exp. 06-08-27 Lot # [id number] Endo clip, Resolution 360, inserted into hepatic flexure exp. 05-13-27 Lot # [id number] 1cc black dye used to tattoo hepatic flexure polyp area Abdominal support applied. HISTORY AND PHYSICAL Maximilian Walker, 24 year old female Current history and physical on file: No Is a new History and Physical required for today's visit? Yes Indication for procedure: Constipation PROCEDURE(S) SCHEDULED FOR: Colonoscopy with or without biopsies and with or without removal of polyps or lesions, dilation (any means), treatment of bleeding (any means), based on clinical findings. BASELINE BEHAVIOR: Calm BASELINE ORIENTATION: A & O x3 All medications and allergies reviewed: Yes Skin Assessment: Warm dry mucus membranes pink Airway/Respiratory Assessment: Airway: visualization of the uvula- Yes Mouth: opening greater than 2 fingerbreadths- Yes Neck: full range of motion- Yes Breath sounds clear/equal- Yes Cardiac Assessment: Regular rate and rhythm without murmur Abdominal Assessment: Abdomen soft, non-tender, no masses or organomegaly. Sedation Plan: Moderate Additional Comments: None Wayne Hernández MD documented in this encounter [facility] 10-12-2024 Nurse procedure note Endo clip, Resolution 360, inserted into hepatic flexure exp. 06-08-27 Lot # [id number] Endo clip, Resolution 360, inserted into hepatic flexure exp. 05-13-27 Lot # [id number] 1cc black dye used to tattoo hepatic flexure polyp area [facility] 10-12-2024 Nurse procedure note Abdominal support applied. [facility] 10-12-2024 Anesthesiology Preoperative evaluation and management note HISTORY AND PHYSICAL Maximilian Walker, 24 year old female Current history and physical on file: No Is a new History and Physical required for today's visit? Yes Indication for procedure: Constipation PROCEDURE(S) SCHEDULED FOR: Colonoscopy with or without biopsies and with or without removal of polyps or lesions, dilation (any means), treatment of bleeding (any means), based on clinical findings. BASELINE BEHAVIOR: Calm BASELINE ORIENTATION: A & O x3 All medications and allergies reviewed: Yes Skin Assessment: Warm dry mucus membranes pink Airway/Respiratory Assessment: Airway: visualization of the uvula- Yes Mouth: opening greater than 2 fingerbreadths- Yes Neck: full range of motion- Yes Breath sounds clear/equal- Yes Cardiac Assessment: Regular rate and rhythm without murmur Abdominal Assessment: Abdomen soft, non-tender, no masses or organomegaly. Sedation Plan: Moderate Additional Comments: None Wayne Hernández MD [facility] Work Phone: 10-05-2024 Telephone encount er Note Pre op call - LM on VM - sent my chart [facility] 10-05-2024 Miscellaneous Notes Formattin g of this note might be different from the original. Pre op call - LM on VM - sent my chart documented in this encounter [facility] 09-24-2024 Note Addended by: ARELI BURT on: 09/24/2024 04:06 PM Modules accepted: Orders [facility] 09-24-2024 Telephone encount er Note Ordered. Areli Booth PA-C [facility] 09-24-2024 Miscellaneous Notes Addended by: ARELI BOOTH on: 09/24/2024 04:06 PM Modules accepted: Orders Ordered. Areli Booth PA-C Former patient of [facility] looking to do a colonoscopy at this time. No order was placed. Are you able to put one in? Patient would like to go to the [place] location. Thanks! September 24, 2024 3:57 PM Sterling Youssef MA documented in this encounter [facility] 09-24-2024 Telephone encount er Note Former patient of Luann's looking to do a colonoscopy at this time. No order was placed. Are you able to put one in? Patient would like to go to the [place] location. Thanks! September 24, 2024 3:57 PM Sterling Youssef MA [facility] 06-25-2024 Note HNO ID: [id number] Author: LUANN LOMAS PA-C Service: ? Author Type: Physician Music Industry Intern Type: Progress Notes Filed: 06/25/2024 10:37 Note Text: GASTROENTEROLOGY NEW PATIENT VIRTUAL VISIT Patient consented to this visit being virtually and understands there are limitations inherent in this type of visit. I have communicated my name and active licensure. The patient's identity and physical location were verified at the time of this visit. Either the patient or their legal pharmaceutical specialty representative has been informed of the risks and benefits of -- and alternatives to -- treatment through a remote evaluation and consents to proceed with the evaluation remotely. This is a virtual visit using [employer] Video Visit. It required patient-provider interaction for the medical decision making as documented below. CC: HPI: Maximilian Walker is a 24 year old female who presents for constipation. She's had issues with constipation since childhood. Notes a lot of stress at one point (school + planning a wedding) She was using natural laxatives (senna) anywhere from twice a week to once every 2 weeks. If she did not use laxatives she would not have a BM. After school and getting (less stress). No longer using laxatives - stopped a year ago. Taking aloe vera juice + miralax every other day. This is helping. But would like to eventually like to stop these and control sx with diet and exercise. BM are every day. Passes pieces, soft and mostly formed. Reports brbpr a few times. She is concerned she has become dependent on laxatives and wants to r/o any damage to her body. She was prev screened for celiac disease- and it was negative NSAID use: very rarely Unexplained weight loss: weight stable Take Blood thinners: none Bowel Habits: see above. Fam Hx: Colon [place] -maternal great aunt and maternal great grandfather. Current Outpatient Medications Medication Sig levothyroxine (TIROSINT) 37.5 mcg capsule Take 37.5 mcg by mouth daily before breakfast. oxybutynin ER (DITROPAN XL) 10 mg 24 hr tablet Take 20 mg by mouth once daily. Amoxicillin 500 mg tablet Take 500 mg by mouth two times a day. No current facility-administered medications for this visit. No past medical history on file. No past surgical history on file. No family history on file. Social History Tobacco Use Smoking status: Never Smokeless tobacco: Never Substance Use Topics Alcohol use: Never Drug use: Never ALLERGIES No Known Allergies GI SPECIFIC ROS: Filling up quickly at meals: No Loss of appetite: No Nausea: No Vomiting: No Abdominal pain: No Recent change in bowel movements: Yes Bloody or black, bowel movements: Yes Constipation: Yes Diarrhea: w/ laxatives Loss of control of bowel movements: No Night sweats, fever, chills: No Vomiting blood: No Recent change in weight: No PHYSICAL EXAMINATION: No physical exam was performed due to this visit being performed via virtually to decrease exposure to Covid 19. Patient was awake, alert, oriented, was able to speak clearly and answer questions. Patient did not seem to be in any distress. Patient appeared comfortable and was sitting and moving around comfortably. ASSESSMENT AND PLAN: Maximilian is a 24 y/o female who presents for constipation concerns. She reports natural laxative (senna) usage regularly. Reports taking a laxative anywhere from twice a week to once every 2 wks. Without a laxative she would not have a BM. During this time she reports a lot of stressors. Once these stressors reduced she started taking miralax + aloe juice every other day. Her BM are daily- formed and soft. BRBPR a few times. 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 Discussed we could do a c-scope to r/o any blockages in the colon and look for melanosis coli. Also discussed importance of reducing laxative usage and that miralax is preferred for regular usage. Discussed life style modifications = diet, exercise, fiber and reducing stress. Informed pt all of these can help improve constipation. She was prev screened for celiac disease- and it was negative TSH and calcium WNL. Recommended she cont miralax every other day. Advised pt to return if sx worsen or fail to improve or if she would l everton to move forward with a c-scope ASSESSMENT/PLAN: 1. Constipation, unspecified constipation type - ICD9: 564.00, ICD10: K59.00 Luann Lomas PA-C I spent a total of 23 minutes on the date of the service which included preparing to see the patient, [id number] patient care, completing clinical documentation, counseling and educating the patient/family/caregiver, and communicating results to the patient/family/caregiver. [facility] 06-25-2024 History of Presen t illness Narrative GASTROENTEROLOGY NEW PATIENT VIRTUAL VISIT Patient consented to this visit being virtually and understands there are limitations inherent in this type of visit. I have communicated my name and active licensure. The patient's identity and physical location were verified at the time of this visit. Either the patient or their legal pharmaceutical specialty representative has been informed of the risks and benefits of -- and alternatives to -- treatment through a remote evaluation and consents to proceed with the evaluation remotely. This is a virtual visit using [employer] Video Visit. It required patient-provider interaction for the medical decision making as documented below. CC: HPI: Maximilian Walker is a 24 year old female who presents for constipation. She's had issues with constipation since childhood. Notes a lot of stress at one point (school + planning a wedding) She was using natural laxatives (senna) anywhere from twice a week to once every 2 weeks. If she did not use laxatives she would not have a BM. After school and getting (less stress). No longer using laxatives - stopped a year ago. Taking aloe vera juice + miralax every other day. This is helping. But would like to eventually like to stop these and control sx with diet and exercise. BM are every day. Passes pieces, soft and mostly formed. Reports brbpr a few times. She is concerned she has become dependent on laxatives and wants to r/o any damage to her body. She was prev screened for celiac disease- and it was negative NSAID use: very rarely Unexplained weight loss: weight stable Take Blood thinners: none Bowel Habits: see above. Fam Hx: Colon [place] -maternal great aunt and maternal great grandfather. Current Outpatient Medications Medication Sig levothyroxine (TIROSINT) 37.5 mcg capsule Take 37.5 mcg by mouth daily before breakfast. oxybutynin ER (DITROPAN XL) 10 mg 24 hr tablet Take 20 mg by mouth once daily. Amoxicillin 500 mg tablet Take 500 mg by mouth two times a day. No current facility-administered medications for this visit. No past medical history on file. No past surgical history on file. No family history on file. Social History Tobacco Use Smoking status: Never Smokeless tobacco: Never Substance Use Topics Alcohol use: Never Drug use: Never ALLERGIES No Known Allergies GI SPECIFIC ROS: Filling up quickly at meals: No Loss of appetite: No Nausea: No Vomiting: No Abdominal pain: No Recent change in bowel movements: Yes Bloody or black, bowel movements: Yes Constipation: Yes Diarrhea: w/ laxatives Loss of control of bowel movements: No Night sweats, fever, chills: No Vomiting blood: No Recent change in weight: No PHYSICAL EXAMINATION: No physical exam was performed due to this visit being performed via virtually to decrease exposure to Covid 19. Patient was awake, alert, oriented, was able to speak clearly and answer questions. Patient did not seem to be in any distress. Patient appeared comfortable and was sitting and moving around comfortably. ASSESSMENT AND PLAN: Maximilian is a 24 y/o female who presents for constipation concerns. She reports natural laxative (senna) usage regularly. Reports taking a laxative anywhere from twice a week to once every 2 wks. Without a laxative she would not have a BM. During this time she reports a lot of stressors. Once these stressors reduced she started taking miralax + aloe juice every other day. Her BM are daily- formed and soft. BRBPR a few times. 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 Discussed we could do a c-scope to r/o any blockages in the colon and look for melanosis coli. Also discussed importance of reducing laxative usage and that miralax is preferred for regular usage. Discussed life style modifications = diet, exercise, fiber and reducing stress. Informed pt all of these can help improve constipation. She was prev screened for celiac disease- and it was negative TSH and calcium WNL. Recommended she cont miralax every other day. Advised pt to return if sx worsen or fail to improve or if she would l everotn to move forward with a c-scope ASSESSMENT/PLAN: 1. Constipation, unspecified constipation type - ICD9: 564.00, ICD10: K59.00 Luann Lomas PA-C I spent a total of 23 minutes on the date of the service which included preparing to see the patient, [id number] patient care, completing clinical documentation, counseling and educating the patient/family/caregiver, and communicating results to the patient/family/caregiver. documented in this encounter [facility] 06-17-2024 Telephone encount er Note Pt. Update 06.17.24 gastro call left message Note: consult gastro. chronic constipation unspecified type [facility] 06-17-2024 Miscellaneous Notes Formattin g of this note might be different from the original. Pt. Update 06.17.24 gastro call left message Note: consult gastro. chronic constipation unspecified type documented in this encounter [facility] 01-02-2024 History of Presen t illness Narrative Subjective Patient ID: Maximilian Walker is a 23 y.o. female. Chief Complaint Patient presents with Follow-up 1 year f/u for hypothyroid- Pt is fasting today Concerns with constipation medications that she is currently taking Concerns with excessive sweating X 1 year Patient here for annual physical Has been doing well. She is noted to have chronic constipation. Used to take laxatives for this but felt they werent good for her to take that frequent and has since tried to adjust her diet and started miralax and a vitamin powder for her bowels. She has had intermittent episodes of increased sweating from the axilla. She has had this in the past and used Drysol for this which took care of the sweating then. She is interested in using this. I do have labs ordered and she will get them completed today. She is currently living in [place] with her . 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 Assessment/Plan: Problem List Items Addressed This Visit Hypothyroidism, acquired, autoimmune Relevant Medications levothyroxine (SYNTHROID, LEVOTHROID) 75 MCG tablet TSH pending Spastic bladder Relevant Medications oxyBUTYnin (DITROPAN-XL) 10 MG 24 hr tablet Controlled and stable with medication Acne vulgaris Relevant Medications amoxicillin (AMOXIL) 500 MG capsule Controlled with medication Other Visit Diagnoses Well adult exam - Primary Hyperhidrosis Relevant Medications aluminum chloride (Drysol) 20 % external solution Other Relevant Orders ACTH (Completed) B12/Folate (Completed) Constipation, unspecified constipation type Continue diet and miralax The following portions of the patient's history were reviewed and updated as appropriate: allergies, current medications, past family history, past medical history, past social history, past surgical history, and problem list. Review of Systems Gastrointestinal: Positive for constipation. Endocrine: Increased sweating Genitourinary: Positive for frequency. Past Medical History: Diagnosis Date Disease of thyroid gland 2001 Past Surgical History: Procedure Laterality Date WISDOM TOOTH EXTRACTION 09/2023 Social History Socioeconomic History Marital status: Tobacco Use Smoking status: Never Smokeless tobacco: Never Substance and Sexual Activity Alcohol use: Never Drug use: Never Sexual activity: Never Social Determinants of Health Financial Resource Strain: Low Risk (01/02/2024) Overall Financial Resource Strain (CARDIA) Difficulty of Paying Living Expenses: Not hard at all Food Insecurity: No Food Insecurity (01/02/2024) Hunger Vital Sign Worried About Running Out of Food in the Last Year: Never true Ran Out of Food in the Last Year: Never true Transportation Needs: No Transportation Needs (01/02/2024) PRAPARE - Transportation Lack of Transportation (Medical): No Lack of Transportation (Non-Medical): No Social Connections: Unknown (06/19/2022) Social Connection and Isolation Panel [NHANES] Frequency of Social Gatherings with Friends and Family: Twice a week Housing Stability: Unknown (06/19/2022) Housing Stability Vital Sign Unable to Pay for Housing in the Last Year: No Unstable Housing in the Last Year: No Family History Problem Relation Age of Onset Diabetes Paternal Grandmother Objective Physical Exam Vitals and nursing note reviewed. Constitutional: General: She is not in acute distress. Appearance: She is well-developed. She is not diaphoretic. HENT: Head: Normocephalic and atraumatic. Right Ear: External ear normal. Left Ear: External ear normal. Eyes: General: Right eye: No discharge. Left eye: No discharge. Conjunctiva/sclera: Conjunctivae normal. Cardiovascular: Rate and Rhythm: Bradycardia present. Pulmonary: Effort: Pulmonary effort is normal. No respiratory distress. Breath sounds: Normal breath sounds. Abdominal: General: There is no distension. Tenderness: There is no abdominal tenderness. Musculoskeletal: General: Normal range of motion. Cervical back: Normal range of motion. Skin: Findings: No rash. Neurological: General: No focal deficit present. Mental Status: She is alert. Psychiatric: Behavior: Behavior normal. Thought Content: Thought content normal. Judgment: Judgment normal. Ramin Adrian CNP For any new medications prescribed today, patient was educated about indications for the medication, how to take the medication and potential side effects of the medications. 06/19/2022 7:07 AM 01/02/2024 8:39 AM Depression Screening Little interest or pleasure in doing things 0 0 Feeling down, depressed, or hopeless 0 0 PHQ-2 Total Score 0 0 Trouble falling or staying asleep, or sleeping too much 1 Feeling tired or having little energy 1 Poor appetite or overeating 1 Feeling bad about yourself - or that you are a failure or have let yourself or your family down 0 Trouble concentrating on things, such as reading the newspaper or watching television 2 Moving or speaking so slowly that other people could have noticed. Or the opposite - being so fidgety or restless that you have been moving around a lot more than usual 0 Thoughts that you would be better off , or of hurting yourself in some way 0 PHQ-9 Total Score 5 If you checked off any problems, how difficult have these problems made it for you to do your work, take care of things at home, or get along with other people? Somewhat difficult 06/19/2022 7:07 AM 01/02/2024 8:39 AM Depression Screening Little interest or pleasure in doing things 0 0 Feeling down, depressed, or hopeless 0 0 PHQ-2 Total Score 0 0 Trouble falling or staying asleep, or sleeping too much 1 Feeling tired or having little energy 1 Poor appetite or overeating 1 Feeling bad about yourself - or that you are a failure or have let yourself or your family down 0 Trouble concentrating on things, such as reading the newspaper or watching television 2 Moving or speaking so slowly that other people could have noticed. Or the opposite - being so fidgety or restless that you have been moving around a lot more than usual 0 Thoughts that you would be better off , or of hurting yourself in some way 0 PHQ-9 Total Score 5 If you checked off any problems, how difficult have these problems made it for you to do your work, take care of things at home, or get along with other people? Somewhat difficult documented in this encounter [facility] 09-21-2023 History of Presen t illness Narrative Pt verified by name and . Images from the original note were not included. [facility] [address] [facility] [address] Dept: [phone] Dept Loc: [phone] Subjective Maximilian Walker is a 23 y.o. year old female who presents to the office with the following complaint(s): Chief Complaint Patient presents with Facial pressure Pt states she has pain and pressure in the back of her head. Pt states it is tender to touch. HPI Patient presents urgent care today with complaints of head pain. Patient states there is a spot to the back of her head that has been causing pain for 1 week and causes pain with palpation. Patient states that she has had some intermittent dizziness, headaches, and lightheadedness but expresses she is not sure when she has had the symptoms. Patient states that the area to the back of her head is tender to touch-denying any injury. Patient expresses concern and would like to have area evaluated. Review of Systems Constitutional: Positive for activity change. Eyes: Negative for visual disturbance. Respiratory: Negative for shortness of breath. Cardiovascular: Negative for chest pain. Allergic/Immunologic: Negative for environmental allergies and food allergies. Neurological: Positive for dizziness, light-headedness and headaches. Intermittent- no specific activity makes it noticeable. No Known Allergies History reviewed. No pertinent past medical history. History reviewed. No pertinent surgical history. No family history on file. Social History Socioeconomic History Marital status: Tobacco Use Smoking status: Never Smokeless tobacco: Never Vaping Use Vaping Use: Never used Substance and Sexual Activity Alcohol use: Yes Drug use: Never Current Outpatient Medications on File Prior to Visit Medication Sig Dispense Refill amoxicillin (Amoxil) 500 MG capsule TAKE 1 CAPSULE TWICE A DAY DIRECTED levothyroxine (Synthroid, Levoxyl) 75 MCG tablet TAKE 0.5 (ONE-HALF) TABLET (37.5 MCG TOTAL) BY MOUTH ONCE DAILY . oxybutynin XL (Ditropan-XL) 10 MG 24 hr tablet No current facility-administered medications on file prior to visit. Objective BP 131/86 Pulse 55 Temp 36.7 C (98 F) Ht 5' 4 (1.626 m) Wt 145 lb (65.8 kg) SpO2 99% BMI 24.89 kg/m Physical Exam Vitals and nursing note reviewed. Constitutional: General: She is not in acute distress. Appearance: Normal appearance. She is normal weight. She is not ill-appearing, toxic-appearing or diaphoretic. HENT: Head: Normocephalic. Nose: Nose normal. Mouth/Throat: Mouth: Mucous membranes are moist. Eyes: Pupils: Pupils are equal, round, and reactive to light. Pulmonary: Effort: Pulmonary effort is normal. No respiratory distress. Abdominal: General: Abdomen is flat. Skin: General: Skin is warm and dry. Neurological: General: No focal deficit present. Mental Status: She is alert and oriented to person, place, and time. Mental status is at baseline. Psychiatric: Mood and Affect: Mood normal. Behavior: Behavior normal. Thought Content: Thought content normal. Judgment: Judgment normal. Assessment: 1. Occipital pain Maximilian was seen today for facial pressure. Diagnoses and all orders for this visit: Occipital pain (Primary) After talking with patient-there does not appear to be any redness from possible cellulitis/folliculitis/cyst-n o swelling noted either. I explained to patient that I am able to elicit tenderness with palpation but there is no other findings. Imaging discussed with patient. After talking with patient-given the patient's chief complaint, clinical presentation and limited resources at this facility- the patient was referred to the Emergency Department for further work up. The patient's medical needs exceed the level of diagnostic testing and treatment that can be provided at this facility- a higher level of care recommended. Patient comfortable taking self to the emergency department- patient is alert and oriented x4, speech is clear coherent, and has an upright and steady gait. VS stable (Please note that portions of this note may have been completed with a voice recognition program. Efforts were made to edit the dictations but occasionally words aremis-transcribed.) ARNALDO Crocker 09/21/23 documented in this encounter [facility] 06-19-2022 History of Presen t illness Narrative Subjective Patient ID: Maximilian Walker is a 22 y.o. female. Chief Complaint Patient presents with Establish [facility] [id number] 5 Patient here to establish care Previous pcp: Ilda Pierce [employer]- [facility] Women's Health: none. Not sexually active Diet/exercise: avoids dairy, tries to eat healthy. Tries to exercise daily. Jogs 2 miles. Cooks mostly at home Vision/Dental: [place]- vision, last in October, [facility]-dental, last year. Wears contacts. 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 Goes back to school end of june. Needs refills of medications On oxybutynin for spastic bladder. All her life she has been on this medication. States she has had many tests and seen urology for quite some time. Has been on this medication BID. Levothyroxine 37.5mg for hypothyroidism. Amoxicillin for acne vulgaris Will need labs today. No other concerns Assessment/Plan: Diagnoses and all orders for this visit: Well adult exam - CBC and Differential; Future - Comprehensive Metabolic Panel; Future - TSH; Future - T4, Free; Future - Vitamin D, Total, 25-OH; Future Hypothyroidism, acquired, autoimmune - levothyroxine (SYNTHROID, LEVOTHROID) 75 MCG tablet; Take 0.5 (one-half) tablet (37.5 mcg total) by mouth once daily . - TSH; Future - T4, Free; Future Acne vulgaris Spastic bladder - oxybutynin (DITROPAN-XL) 10 MG 24 hr tablet; Take 1 (one) tablet (10 mg total) by mouth 2 (two) times a day . Vitamin D deficiency - Vitamin D, Total, 25-OH; Future Encounter to establish care The following portions of the patient's history were reviewed and updated as appropriate: allergies, current medications, past family history, past medical history, past social history, past surgical history, and problem list. Review of Systems Gastrointestinal: Positive for constipation (at times, helps to avoid dairy). Genitourinary: Positive for frequency (chronic). All other systems reviewed and are negative. Past Medical History: Diagnosis Date Disease of thyroid gland 2001 History reviewed. No pertinent surgical history. Social History Socioeconomic History Marital status: Single Tobacco Use Smoking status: Never Smokeless tobacco: Never Substance and Sexual Activity Alcohol use: Never Drug use: Never Sexual activity: Never Social Determinants of Health Financial Resource Strain: Low Risk Difficulty of Paying Living Expenses: Not hard at all Food Insecurity: No Food Insecurity Worried About Running Out of Food in the Last Year: Never true Ran Out of Food in the Last Year: Never true Transportation Needs: No Transportation Needs Lack of Transportation (Medical): No Lack of Transportation (Non-Medical): No Social Connections: Unknown Frequency of Social Gatherings with Friends and Family: Twice a week Housing Stability: Unknown Unable to Pay for Housing in the Last Year: No Unstable Housing in the Last Year: No Family History Problem Relation Age of Onset Diabetes Paternal Grandmother Objective Physical Exam Vitals and nursing note reviewed. Constitutional: General: She is not in acute distress. Appearance: She is well-developed. She is not diaphoretic. HENT: Head: Normocephalic and atraumatic. Right Ear: External ear normal. Left Ear: External ear normal. Eyes: General: Right eye: No discharge. Left eye: No discharge. Conjunctiva/sclera: Conjunctivae normal. Cardiovascular: Rate and Rhythm: Normal rate. Heart sounds: Normal heart sounds. Pulmonary: Effort: Pulmonary effort is normal. No respiratory distress. Breath sounds: Normal breath sounds. Abdominal: General: There is no distension. Palpations: Abdomen is soft. Tenderness: There is no abdominal tenderness. Musculoskeletal: General: Normal range of motion. Cervical back: Normal range of motion. Skin: Findings: No rash. Neurological: General: No focal deficit present. Mental Status: She is alert. Psychiatric: Behavior: Behavior normal. Thought Content: Thought content normal. Judgment: Judgment normal. Ramin Adrian CNP For any new medications prescribed today, patient was educated about indications for the medication, how to take the medication and potential side effects of the medications. Depression Screening 06/19/2022 Little interest or pleasure in doing things 0 Feeling down, depressed, or hopeless 0 PHQ-2 Total Score 0 Trouble falling or staying asleep, or sleeping too much 1 Feeling tired or having little energy 1 Poor appetite or overeating 1 Feeling bad about yourself - or that you are a failure or have let yourself or your family down 0 Trouble concentrating on things, such as reading the newspaper or watching television 2 Moving or speaking so slowly that other people could have noticed. Or the opposite - being so fidgety or restless that you have been moving around a lot more than usual 0 Thoughts that you would be better off , or of hurting yourself in some way 0 PHQ-9 Total Score 5 If you checked off any problems, how difficult have these problems made it for you to do your work, take care of things at home, or get along with other people? Somewhat difficult documented in this encounter [facility] Evaluation note Diagnosis Well adult exam- Primary Routine general medical examination at a [facility] care facility Hypothyroidism, acquired, autoimmune Other specified acquired hypothyroidism Acne vulgaris Other acne Spastic bladder Vitamin D deficiency Encounter to establish care documented in this encounter [facility] note* Diagnosis Hypothyroidism, acquired, autoimmune- Primary Other specified acquired hypothyroidism documented in this encounter [facility] note* Diagnosis Hypothyroidism, acquired, autoimmune Other specified acquired hypothyroidism documented in this encounter [facility] note* Diagnosis Occipital pain- Primary documented in this encounter [facility] note* Diagnosis Well adult exam- Primary Routine general medical examination at a [facility] care facility documented in this encounter [facility] note* Diagnosis Well adult exam- Primary Routine general medical examination at a [facility] Hypothyroidism, acquired, autoimmune Other specified acquired hypothyroidism Acne vulgaris Other acne Hyperhidrosis Generalized hyperhidrosis Spastic bladder Constipation, unspecified constipation type documented in this encounter [facility] note* Diagnosis Vitamin D deficiency- Primary documented in this encounter [facility] note* Diagnosis Constipation, unspecified constipation type- Primary documented in this encounter [facility] note* Diagnosis Constipation, unspecified constipation type- Primary Change in bowel habits Other symptoms involving digestive system documented in this encounter [facility] note* Diagnosis Constipation, unspecified constipation type Change in bowel habits Other symptoms involving digestive system documented in this encounter [facility] note* Diagnosis Amenorrhea, secondary- Primary Absence of menstruation documented in this encounter [facility] note* Diagnosis Vitamin D deficiency- Primary Well adult exam Routine general medical examination at a [facility] care facility Lipid screening Screening for lipoid disorders documented in this encounter [facility] note* Diagnosis Well adult exam- Primary Routine general medical examination at a [facility] care facility Hypothyroidism, acquired, autoimmune Other specified acquired hypothyroidism Acne vulgaris Other acne [facility] Diagnosis Well adult exam- Primary Routine general medical examination at a [facility] care facility Hypothyroidism, acquired, autoimmune Other specified acquired hypothyroidism Acne vulgaris Other acne Hypothyroidism, acquired, autoimmune- Primary Other specified acquired hypothyroidism documented in this encounter [facility] note* Diagnosis Supervision of normal first , antepartum (HCC)- Primary with uncertain dates in first trimester (HCC) Screen for STD (sexually transmitted disease) Screening examination for venereal disease Screening for cervical cancer Screening for malignant neoplasm of the cervix Special screening examination for human papillomavirus (HPV) Hypothyroidism, unspecified type 8 weeks gestation of ([facility]) state, incidental documented in this encounter [facility] note* Diagnosis Supervision of normal first , antepartum (HCC)- Primary 12 weeks gestation of ([facility]) state, incidental Hypothyroidism, unspecified type documented in this encounter [facility] note* Diagnosis Encounter for screening for malformation using ultrasound ([facility])- Primary 12 weeks gestation of ([facility]) state, incidental Encounter for (NT) nuchal translucency scan ([facility]) Other specified screening documented in this encounter [facility] note* Diagnosis 16 weeks gestation of ([facility])- Primary state, incidental Supervision of normal first , antepartum (HCC) Hypothyroidism, unspecified type documented in this encounter [facility] note* Diagnosis TSH elevation Nonspecific abnormal results of thyroid function study 17 weeks gestation of ([facility]) state, incidental Hypothyroidism, unspecified type documented in this encounter [facility] note* Diagnosis Encounter for anatomic survey ([facility])- Primary Encounter for anatomic survey 20 weeks gestation of ([facility]) state, incidental Encounter for supervision of normal first in second trimester ([facility])- Primary Supervision of normal first Hypothyroid in , antepartum ([facility]) Thyroid dysfunction, antepartum TSH elevation Nonspecific abnormal results of thyroid function study 20 weeks gestation of ([facility]) state, incidental documented in this encounter [facility] note* Diagnosis Encounter for supervision of normal first in second trimester ([facility])- Primary Supervision of normal first Hypothyroid in , antepartum (HCC) Thyroid dysfunction, antepartum TSH elevation Nonspecific abnormal results of thyroid function study 20 weeks gestation of ([facility]) state, incidental * Assessment & Plan Note - Huong Ly MD - 06/25/2025 2:25 PM EDT Associated Problem(s): Supervision of normal first , antepartum (HCC) documented in this encounter [facility] note* Diagnosis Encounter for supervision of normal first in second trimester ([facility])- Primary Supervision of normal first Hypothyroid in , antepartum ([facility]) Thyroid dysfunction, antepartum TSH elevation Nonspecific abnormal results of thyroid function study 20 weeks gestation of ([facility]) state, incidental Encounter for supervision of normal first in second trimester ([facility])- Primary Supervision of normal first 24 weeks gestation of ([facility]) state, incidental Hypothyroid in , antepartum ([facility]) Thyroid dysfunction, antepartum TSH elevation Nonspecific abnormal results of thyroid function study Screening for diabetes mellitus documented in this encounter [facility] note* Diagnosis TSH elevation- Primary Nonspecific abnormal results of thyroid function study 17 weeks gestation of ([facility]) state, incidental Hypothyroidism, unspecified type Encounter for supervision of normal first in second trimester ([facility])- Primary Supervision of normal first Hypothyroid in , antepartum ([facility]) Thyroid dysfunction, antepartum TSH elevation Nonspecific abnormal results of thyroid function study 20 weeks gestation of ([facility]) state, incidental documented in this encounter [facility] note* Diagnosis Encounter for supervision of normal first in second trimester ([facility])- Primary Supervision of normal first Hypothyroid in , antepartum ([facility]) Thyroid dysfunction, antepartum TSH elevation Nonspecific abnormal results of thyroid function study 20 weeks gestation of ([facility]) state, incidental Hypothyroidism, unspecified type 26 weeks gestation of ([facility]) state, incidental documented in this encounter [facility] for referral (narrative)* Outpatient Procedure (Routine) - New Request Specialty Diagnoses / Procedures Referred By Homero le Referred To Contact [facility] Diagnoses Constipation, unspecified constipation type Change in bowel habits Procedures COLONOSCOPY DIAGNOSTIC COLONOSCOPY FLX DX W/COLLJ SPEC WHEN Areli Richter PA-C [address] [address] [facility] [address] [place] [address] Referral ID Status Reason Start Date Expiration Date Visits Requested Visits Authorized [id number] New Request Auto-Generat ed Referral 4 09/24/2025 1 1 [facility] for referral (narrative)* Outpatient Procedure (Routine) - Closed Specialty Diagnoses / Procedures Referred By Homero le Referred To Contact [facility] Diagnoses Constipation, unspecified constipation type Change in bowel habits Procedures COLONOSCOPY DIAGNOSTIC COLONOSCOPY FLX DX W/COLLJ SPEC WHEN Areli Richter PA-C [address] [facility] [address] [place] [address] [facility] [address] [place] [address] Referral ID Status Reason Start Date Expiration Date V isits Requested Visits Authorized [id number] Closed Auto-Generate d Referral 09/28/2024 11/24/2024 1 1 [facility] for visit Narrative* Outpatient Procedure (Routine) - Closed Specialty Diagnoses / Procedures Referred By Contmanuelito t Referred To Contact [facility] Diagnoses Constipation, unspecified constipation type Change in bowel habits Procedures COLONOSCOPY DIAGNOSTIC COLONOSCOPY FLX DX W/COLLJ SPEC WHEN Areli Richter PA-C 1 [facility] [address] [place] [address] [facility] [address] [place] [address] Referral ID Status Reason Start Date Expiration Date V isits Requested Visits Authorized [id number] Closed Auto-Generate d Referral 09/28/2024 11/24/2024 1 1 [facility] Summary Purpose Family History No Family History Records FoundNo Family History Records FoundNo Family History Records FoundNo Family History Records FoundNo Family History Records FoundNo Family History Records FoundNo Family History Records FoundNo Family History Records FoundNo Family History Records FoundNo Family History Records FoundNo Family History Records Found Advance Directives No Advanced Directives Records FoundDocuments on File Type Date Recorded 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 Advance Directives and Livin g Will 09/09/2019 9:40 AM Reason for Referral Status Reason Specialty Diagnoses / Procedures Referred By Contact Referred To Contact Pending Review Radiology Diagnoses Constipation, unspecified constipation type Procedures Fluoroscopy Barium Enema Air Contrast [place] [address] Specialty Diagnoses / Procedures Referred By Contac t Referred To Contact Diagnoses Hyperhidrosis Ramin Adrian, AIR ROUTE TRAFFIC CONTROLLER [address] [place] [id number] Referral ID Status Reason Start Date Expiration Date V isits Requested Visits Authorized [id number] Pending Review 1 1 Assessments Diagnosis Constipation, unspecified constipation type Additional Source Comments INFORMATION SOURCE (unrecogn ized section and content) DATE CREATED AUTHOR 09/25/2018 [facility] DATE CREATED AUTHOR AUTHOR'S ORGANIZ ATION 08/11/[address] [facility] DATE CREATED AUTHOR AUTHOR'S ORGANIZ ATION 04/10/2021 [facility] DATE CREATED AUTHOR AUTHOR'S ORGANIZ ATION 07/19/2022 [facility] DATE CREATED AUTHOR AUTHOR'S ORGANIZ ATION 09/23/2023 [facility] DATE CREATED AUTHOR AUTHOR'S ORGANIZ ATION [facility] DATE CREATED AUTHOR AUTHOR'S ORGANIZ ATION 01/06/2025 [facility] DATE CREATED AUTHOR AUTHOR'S ORGANIZ ATION [facility] DATE CREATED AUTHOR AUTHOR'S ORGANIZ ATION 01/09/2025 [facility] DATE CREATED AUTHOR AUTHOR'S ORGANIZ ATION 10/02/2025 [facility] DATE CREATED AUTHOR AUTHOR'S ORGANIZ ATION 10/06/2025 [facility] Reason for Visit (unrecogniz ed section and content) Status Reason Specialty Diagnoses / Procedures Referred By Contact Referred To Contact Pending Review Radiology Diagnoses Constipation, unspecified constipation type Procedures Fluoroscopy Barium Enema Air Contrast [place] [address] Reason Comments Establish Care Senior Martín Jimenez ,Makenna ccounting [id number] Reason Onset Date Comments Medication Refill 05/25/2023 Reason Onset Date Comments Medication Refill 08/27/2023 Reason Comments Facial pressure Pt states she has pa in and pressure in the back of her head. Pt states it is tender to touch. Reason Comments Follow-up 1 year f/u for hypot hyroid- Pt is fasting todayConcerns with constipation medications that she is currently takingConcerns with excessive sweating X 1 year Reason Comments Patient Update Reason Comments Constipation Reason Comments PreOp Call Reason Comments Results Reason Comments Establish Care Reason Comments Annual Exam Physical/lab reviewP t is fasting and will complete labs after today's visitPt requesting TSH/T4 labs to be added Reason Comments New First [facility] Reason Onset Date Comments Care 04/29/2025 Reason Comments US Specialty Diagnoses / Procedures Referred By Contac t Referred To Contact [facility] Diagnoses 8 weeks gestation of (HCC) Procedures OBSTETRIC ULTRASOUND WHI US PREG UTERUS AFTER 1ST TRIMEST GESTATION Tiana Edmonds, ENVIRONMENTAL MONITORING SPECIALIST.AIR ROUTE TRAFFIC CONTROLLER [address] [place] [address] Phone: tel: fax: [facility] [place] [address] [place] [address] Referral ID Status Reason Start Date Expiration Date V isits Requested Visits Authorized [id number] Closed Auto-Generate d Referral 04/15/2025 11/24/2025 1 1 Reason Onset Date Comments Care 05/31/2025 Reason Comments Thyroid Problem Specialty Diagnoses / Procedures Referred By Contac t Referred To Contact Endocrinology Diagnoses TSH elevation 17 weeks gestation of (HCC) Hypothyroidism, unspecified type Procedures CONSULT TO ENDOCRINOLOGY OFFICE/OUTPATIENT NEW HIGH MDM 60 MINUTES Deena Hanson APRN.CNM [address] [place] [place] [address] Phone: tel: fax:[phone] Referral ID Status Reason Start Date Expiration Date V isits Requested Visits Authorized [id number] Closed PCP Requested Referral 06/02/2025 06/02/2026 1 1 Referral ID Status Reason Start Date Expiration Date V isits Requested Visits Authorized [id number] Closed Auto-Generate d Referral 06/14/2025 11/24/2025 1 1 Reason Onset Date Comments Care 06/25/2025 Reason Onset Date Comments Care 07/23/2025 Reason Comments Med Change Request Care Teams (unrecognized sec tion and content) Typo Machine Operator Relationship Specialty Start Date End Date Ramin Adrian, AIR ROUTE TRAFFIC CONTROLLER [address] [place] [address] PCP - General Emergency Medicine 06/19/22 Typo Machine Operator Relationship Specialty Start Date End Date Liz Edgar MD [address] [place] [address] PCP - General Pediatrics 09/07/19 06/18/22 NguyễnRamin, AIR ROUTE TRAFFIC CONTROLLER [address] [place] [phone] PCP - General Emergency Medicine 06/19/22 Typo Machine Operator Relationship Specialty Start Date End Date NguyễnRamin, AIR ROUTE TRAFFIC CONTROLLER [address] [place] [phone] PCP - General Emergency Medicine 06/19/22 Typo Machine Operator Relationship Specialty Start Date End Date Nguyễn Ramin Dubois, AIR ROUTE TRAFFIC CONTROLLER [address] [place] [phone] PCP - General Emergency Medicine 06/19/22 Typo Machine Operator Relationship Specialty Start Date End Date Nguyễn Ramin Dubois, AIR ROUTE TRAFFIC CONTROLLER [address] [place] [phone] PCP - General Emergency Medicine 06/19/22 NguyễnRamin, AIR ROUTE TRAFFIC CONTROLLER [address] [place] [phone] PCP - AMMON Attributed Provider - [employer] 12/26/22 11/24/50 Typo Machine Operator Relationship Specialty Start Date End Date Nguyễn Ramin Dubois, AIR ROUTE TRAFFIC CONTROLLER [address] [place] [phone] PCP - General Emergency Medicine 06/19/22 Ramin Adrian, AIR ROUTE TRAFFIC CONTROLLER [address] [place] [phone] PCP - AMMON Attributed Provider - [employer] [place] [employer] 12/26/22 11/24/50 Typo Machine Operator Relationship Specialty Start Date End Date Nguyễn Ramin Dubois, ELENA [address] [place] [phone] PCP - General Emergency Medicine 06/19/22 Ramin Adrian, ELENA [address] [place] [phone] PCP - AMMON Attributed Provider - [employer] [place] [employer] 12/26/22 11/24/50 Typo Machine Operator Relationship Specialty Start Date End Date NguyễnRamin CNP [address] [place] [phone] PCP - General Emergency Medicine 06/19/22 Ramin Adrian CNP [address] [place] [phone] PCP - AMMON Attributed Provider - [employer] [place] [employer] 12/26/22 11/24/50 Typo Machine Operator Relationship Specialty Start Date End Date Nguyễn Ramin Dubois CNP [address] [place] [phone] PCP - General Emergency Medicine 06/19/22 Ramin Adrian CNP [address] [place] [phone] PCP - AMMON Attributed Provider - [employer] 12/26/22 11/24/50 Typo Machine Operator Relationship Specialty Start Date End Date Ramin Adrian CNP [address] [place] [phone] PCP - General Family Medicine 09/21/23 Typo Machine Operator Relationship Specialty Start Date End Date Ramin Adrian CNP [address] [place] [phone] PCP - General Family Medicine 09/21/23 Typo Machine Operator Relationship Specialty Start Date End Date Ramin Adrian CNP [address] [place] [phone] PCP - General Family Medicine 09/21/23 Typo Machine Operator Relationship Specialty Start Date End Date Ramin Adrian CNP [address] [place] [phone] PCP - General Family Medicine 09/21/23 Typo Machine Operator Relationship Specialty Start Date End Date Ramin Adrian CNP [address] [place] [phone] PCP - General Family Medicine 09/21/23 Typo Machine Operator Relationship Specialty Start Date End Date Ramin Adrian CNP [address] [place] [phone] PCP - General Family Medicine 09/21/23 Typo Machine Operator Relationship Specialty Start Date End Date Ramin Adrian CNP [address] [place] [address] [phone] PCP - General Family Medicine 09/21/23 Typo Machine Operator Relationship Specialty Start Date End Date Ramin Adrian CNP [address] [place] [phone] PCP - General Emergency Medicine 06/19/22 Ramin Adrian CNP [address] [place] [phone] PCP - AMMON Attributed Provider - [employer] [place] [employer] 12/26/22 11/24/50 Typo Machine Operator Relationship Specialty Start Date End Date NguyễnRamin CNP [address] [place] [phone] PCP - General Family Medicine 09/21/23 Typo Machine Operator Relationship Specialty Start Date End Date NguyễnRamin CNP [address] [place] [phone] PCP - General Family Medicine 09/21/23 Typo Machine Operator Relationship Specialty Start Date End Date NguyễnRamin CNP [address] [place] [phone] PCP - General Family Medicine 09/21/23 Typo Machine Operator Relationship Specialty Start Date End Date NguyễnRamin CNP [address] [place] [phone] PCP - General Family Medicine 09/21/23 Typo Machine Operator Relationship Specialty Start Date End Date NguyễnRamin CNP [address] [place] [address] [phone] PCP - General Family Medicine 09/21/23 Typo Machine Operator Relationship Specialty Start Date End Date NguyễnRamin CNP [address] [place] [address] [phone] PCP - General Family Medicine 09/21/23 Typo Machine Operator Relationship Specialty Start Date End Date Ramin Adrian CNP [address] [place] [phone] PCP - General Family Medicine 09/21/23 Typo Machine Operator Relationship Specialty Start Date End Date Ramin Adrian CarlosELENA [address] [place] [phone] PCP - General Family Medicine 09/21/23 Typo Machine Operator Relationship Specialty Start Date End Date Wes Adrianmarta Dubois CNP [address] [place] [address] PCP - General Family Medicine 09/21/23 Typo Machine Operator Relationship Specialty Start Date End Date Wes Adrianmikhailyady ELENA Dubois [address] [place] [address] [phone] PCP - General Family Medicine 09/21/23 Typo Machine Operator Relationship Specialty Start Date End Date Ramin Adrian ELENA Dubois [address] [place] [phone] PCP - General Family Medicine 09/21/23 Source Comments (unrecognize d section and content) In the event this informatio n is protected by the Federal Confidentiality of Alcohol and Drug Abuse Patient Records regulations: The Federal rules restrict any use of the information to criminally investigate or prosecute any alcohol or drug abuse patient.[facility] the event this information is protected by the Federal Confidentiality of Alcohol and Drug Abuse Patient Records regulations: The Federal rules restrict any use of the information to criminally investigate or prosecute any alcohol or drug abuse patient.[facility] the event this information is protected by the Federal Confidentiality of Alcohol and Drug Abuse Patient Records regulations: The Federal rules restrict any use of the information to criminally investigate or prosecute any alcohol or drug abuse patient.[facility] the event this information is protected by the Federal Confidentiality of Alcohol and Drug Abuse Patient Records regulations: The Federal rules restrict any use of the information to criminally investigate or prosecute any alcohol or drug abuse patient.[facility] the event this information is protected by the Federal Confidentiality of Alcohol and Drug Abuse Patient Records regulations: The Federal rules restrict any use of the information to criminally investigate or prosecute any alcohol or drug abuse patient.[facility] the event this information is protected by the Federal Confidentiality of Alcohol and Drug Abuse Patient Records regulations: The Federal rules restrict any use of the information to criminally investigate or prosecute any alcohol or drug abuse patient.[facility] the event this information is protected by the Federal Confidentiality of Alcohol and Drug Abuse Patient Records regulations: The Federal rules restrict any use of the information to criminally investigate or prosecute any alcohol or drug abuse patient.[facility] the event this information is protected by the Federal Confidentiality of Alcohol and Drug Abuse Patient Records regulations: The Federal rules restrict any use of the information to criminally investigate or prosecute any alcohol or drug abuse patient.[facility] the event this information is protected by the Federal Confidentiality of Alcohol and Drug Abuse Patient Records regulations: The Federal rules restrict any use of the information to criminally investigate or prosecute any alcohol or drug abuse patient.[facility] the event this information is protected by the Federal Confidentiality of Alcohol and Drug Abuse Patient Records regulations: The Federal rules restrict any use of the information to criminally investigate or prosecute any alcohol or drug abuse patient.[facility] the event this information is protected by the Federal Confidentiality of Alcohol and Drug Abuse Patient Records regulations: The Federal rules restrict any use of the information to criminally investigate or prosecute any alcohol or drug abuse patient.[facility] the event this information is protected by the Federal Confidentiality of Alcohol and Drug Abuse Patient Records regulations: The Federal rules restrict any use of the information to criminally investigate or prosecute any alcohol or drug abuse patient.[facility] the event this information is protected by the Federal Confidentiality of Alcohol and Drug Abuse Patient Records regulations: The Federal rules restrict any use of the information to criminally investigate or prosecute any alcohol or drug abuse patient.[facility] the event this information is protected by the Federal Confidentiality of Alcohol and Drug Abuse Patient Records regulations: The Federal rules restrict any use of the information to criminally investigate or prosecute any alcohol or drug abuse patient.[facility] the event this information is protected by the Federal Confidentiality of Alcohol and Drug Abuse Patient Records regulations: The Federal rules restrict any use of the information to criminally investigate or prosecute any alcohol or drug abuse patient.[facility] Center[facility] the event this information is protected by the Federal Confidentiality of Alcohol and Drug Abuse Patient Records regulations: The Federal rules restrict any use of the information to criminally investigate or prosecute any alcohol or drug abuse patient.[facility] Center[facility] the event this information is protected by the Federal Confidentiality of Alcohol and Drug Abuse Patient Records regulations: The Federal rules restrict any use of the information to criminally investigate or prosecute any alcohol or drug abuse patient.[facility] Center[facility] the event this information is protected by the Federal Confidentiality of Alcohol and Drug Abuse Patient Records regulations: The Federal rules restrict any use of the information to criminally investigate or prosecute any alcohol or drug abuse patient.[facility] Center[facility] the event this information is protected by the Federal Confidentiality of Alcohol and Drug Abuse Patient Records regulations: The Federal rules restrict any use of the information to criminally investigate or prosecute any alcohol or drug abuse patient.[facility] Center[facility] the event this information is protected by the Federal Confidentiality of Alcohol and Drug Abuse Patient Records regulations: The Federal rules restrict any use of the information to criminally investigate or prosecute any alcohol or drug abuse patient.[facility] CenterIn the event this information is protected by the Federal Confidentiality of Alcohol and Drug Abuse Patient Records regulations: The Federal rules restrict any use of the information to criminally investigate or prosecute any alcohol or drug abuse patient.[facility] Center[facility] the event this information is protected by the Federal Confidentiality of Alcohol and Drug Abuse Patient Records regulations: The Federal rules restrict any use of the information to criminally investigate or prosecute any alcohol or drug abuse patient.[facility] FOR RECORDS PERTAINING TO PATIENTS WHO ARE OR HAVE BEEN ENROLLED IN A CHEMICAL DEPENDENCY/SUBSTANCEABUSE PROGRAM, SOME INFORMATION MAY BE OMITTED. This clinical summary was aggregated from multiple sources. Caution should be exercised in using it in the provision of clinical care. This summary normalizes information from multiple sources, and as a consequence, information in this document may materially change the coding, format and clinical context of patient data. In addition, data may be omitted in some cases. CLINICAL DECISIONS SHOULD BE BASED ON THE PRIMARY CLINICAL RECORDS. [facility]. provides no warranty or guarantee of the accuracy or completeness of information in this document.
[2025-11-14 19:30] VITALS: BP 122/82; PULSE 100; RESP 16; TEMP 37; O2SAT 96
[2025-11-14 19:32] VITALS: PULSE 99
[2025-11-14 19:54] VITALS: BMI 33.0
[2025-11-14 19:55] LABS: Hematocrit 37.6 % (37-47); Hemoglobin 12.8 g/dL (12.0-15.0); Immature Granulocytes Count 0.060 X10^3/uL (0.0-0.0); Mean Corp Hgb Conc 34.0 g/dL (32-36); Mean Corpuscular Volume 91.5 fL (81-99); Mean Platelet Vol. 12.0 fl (6.2-12.0); NRBC Flagged by Analyzer 0 % (0-5); Platelet Count 246 K/mm3 (150-450); RBC Distribution Width CV 13.1 % (11.6-14.6); RBC Distribution Width SD 43.7 fl (35.1-43.9); Red Blood Count 4.11 M/mm3 (4.2-5.4); White Blood Count 12.2 K/mm3 (4.4-11.0)
[2025-11-14 20:27] LABS: Syphilis Antibodies Nonreactive (Nonreactive)
--- NOTE | 2025-11-14 21:26 | HP.PCM.OB_ITS ---
HPI - General General Date of Admission: 11/14/25 Date of Service: 11/14/25 Chief Complaint: Induction HPI Narrative MAXIMILIAN WALKER, is a 25 F who presents induction of labor. GBS positive. Maternal Data Information Final FINA: 11/08/25 Gestational age: 40+6 PFSH [facility] Medical History Abnormal colonoscopy Pain in female genitalia on intercourse Hypothyroidism Home Medications ?Medication ?Instructions ?Recorded ?Last Taken ?Type levothyroxine 75 mcg tablet 75 mcg PO DAILY hypothyroi dism 11/14/25 11/14/25 07:00 History (Euthyrox) 75 mcg vit no.95-ferrous 1 tab PO DAILY 11/13/25 19:00 History fumarate 28 mg-folic acid 800 mcg 1 TA B tablet () Allergy/AdvReac Type Severity Reaction Status Date / Time No Known Allergies Allergy Verified 11/14/25 19:43 Surgical History History of bladder surgery H/O wisdom tooth extraction Social History Smoking Status: Never smoker History Elective abortions Hx Para 0 Spontaneous abortions Hx # Term Pregnancies Ectopic pregnancies Hx # Pregnancies Multiple births # of living children NST FHR Rate Baby A Baseline: 135 Decelerations:: None NST Reactive:: Yes Uterine Activity:: irregular ROS Constitutional Constitutional: Denies fatigue, fever(s) or malaise Eyes Eyes: Denies change in vision ENT HEENT: Denies dizziness or headache(s) Cardiovascular Cardiovascular: Denies chest pain, dyspnea or lightheadedness Respiratory/Chest Respiratory/Chest: Denies cough or dyspnea Gastrointestinal Gastrointestinal: Denies change in bowel habits Genitourinary Genitourinary: Denies burning urination or genital lesions Integumentary Integumentary: Denies rash Neurologic Neurologic: Denies confusion, dizziness, headache(s), numbness or weakness Vital Signs Vital Signs Vital Signs: 11/14/25 19:30 11/14/25 19:30 11/14/25 19:30 Temperature Temperature Source Temporal Pulse Rate 100 Respiratory Rate Blood Pressure 122/82 H BP Systolic 122 BP Diastolic 82 Pulse Ox 11/14/25 19:30 11/14/25 19:30 11/14/25 19:30 Temperature 98.6 F Temperature Source Pulse Rate Respiratory Rate 16 Blood Pressure BP Systolic BP Diastolic Pulse Ox 96 11/14/25 19:32 Temperature Temperature Source Pulse Rate 99 Respiratory Rate Blood Pressure BP Systolic BP Diastolic Pulse Ox Weight Weight: 87.5 kg Body Mass Index (BMI) 33.0 PRE- weight 69.853 kg Physical Exam Const alert and no apparent distress General Appearance: cooperative HEENT normocephalic Resp normal respiratory effort Cardio regular rate GI soft to palpation GI Narrative: gravid, nontender, appropriate for gestational age Extremity no calf tenderness General Extremity: edema Skin no wounds Rashes: No rashes noted Psych activity/motor behavior normal Labs Labs Labs: Blood Type O POSITIVE Antibody Screen NEGATIVE Hct, (37-47) 37.6 % Hgb, (12.0-15.0) 12.8 g/dL Syphilis Total Ab, (Nonreactive) Nonreactive Assessment & Plan (1) 40 weeks gestation of : (2) Elective induction of labor planned: (3) Positive GBS test: PLAN: Plan Cytotec/billy GBS pos- pcn epidural prn
[2025-11-14 22:19] VITALS: BP 132/79; PULSE 63; RESP 16; TEMP 36.9; O2SAT 96
[2025-11-14 22:20] VITALS: BP 132/79; PULSE 63
[2025-11-15] VITALS (75 sets, daily range): BP systolic 75–156; BP diastolic 39–89; PULSE 50–98; RESP 15–19; TEMP 36.4–37.4; O2SAT 80–100
[2025-11-15] MEDS: Lactated Ringers 1,000 ML 999 ML IV ×2 (00:22→10:40)
[2025-11-15] MEDS: Lactated Ringers 1,000 ML 50 ML IV (02:08)
[2025-11-15] MEDS: 0.9% Normal Saline Single 100 ML IV.SOLN. INTRA-UTER (08:00)
--- NOTE | 2025-11-15 08:13 | PN.OBGYN_ITS ---
Subjective Subjective Barrow bulb placed without difficulty. 1.5cm/60/-2 Cat I Objective Data Objective Data Vital Signs: Vital Signs Temp Pulse Resp BP Pulse Ox 97.5 F L 85 16 112/67 95 11/15/25 07:37 11/15/25 07:42 11/15/25 07:37 11/15/25 07:37 11/15/25 07:42 Weight: 87.5 kg Body Mass Index (BMI) 33.0 Intake & Output: Intake and Output for Last 24 Hours 11/13/25 11/14/25 11/15/25 23:59 23:59 23:59 Intake Total 1000.00 / 1000.00 Balance 1000.00 / 1000.00 Lab / Micro Data 11/14/25 19:35 Labs: Laboratory Results - last 24 hr 11/14/25 19:35: WBC 12.2 H, RBC 4.11 L, Hgb 12.8, Hct 37.6, MCV 91.5, MCH 31.1, MCHC 34.0, RDW Std Deviation 43.7, RDW Coeff of Devante 13.1, Plt Count 246, MPV 12.0, Immature Gran % (Auto) 0.500, Neut % (Auto) 75.0 H, Lymph % (Auto) 15.2 L, [place] % (Auto) 8.5, Eos % (Auto) 0.6, Baso % (Auto) 0.2, Absolute Neuts (auto) 9.1 H, Absolute Lymphs (auto) 1.85, Nucleated RBC % 0, Syphilis Total Ab Nonreactive, Blood Type O POSITIVE, Antibody Screen NEGATIVE Assessment & Plan (1) Positive GBS test: (2) Elective induction of labor planned: (3) 40 weeks gestation of : PLAN: Plan Pitocin prn Epidural prn
--- NOTE | 2025-11-15 08:25 | PCM.PN.CNM ---
Subjective Subjective Assumed management of patient. Seen at bedside. C/O pain with contractions. Planning on epidural. Objective Data Objective Data Vital Signs: Vital Signs Temp Pulse Resp BP Pulse Ox 97.5 F L 85 16 112/67 95 11/15/25 07:37 11/15/25 07:42 11/15/25 07:37 11/15/25 07:37 11/15/25 07:42 Weight: 192 lb 14.472 oz Body Mass Index (BMI) 33.0 Intake & Output: Intake and Output for Last 24 Hours 11/13/25 11/14/25 11/15/25 23:59 23:59 23:59 Intake Total 1000.00 / 1000.00 Balance 1000.00 / 1000.00 Lab / Micro Data 11/14/25 19:35 Labs: Laboratory Results - last 24 hr 11/14/25 19:35: WBC 12.2 H, RBC 4.11 L, Hgb 12.8, Hct 37.6, MCV 91.5, MCH 31.1, MCHC 34.0, RDW Std Deviation 43.7, RDW Coeff of Devante 13.1, Plt Count 246, MPV 12.0, Immature Gran % (Auto) 0.500, Neut % (Auto) 75.0 H, Lymph % (Auto) 15.2 L, [place] % (Auto) 8.5, Eos % (Auto) 0.6, Baso % (Auto) 0.2, Absolute Neuts (auto) 9.1 H, Absolute Lymphs (auto) 1.85, Nucleated RBC % 0, Syphilis Total Ab Nonreactive, Blood Type O POSITIVE, Antibody Screen NEGATIVE Assessment & Plan (1) Positive GBS test: (2) 41 weeks gestation of : (3) Hypothyroidism: PLAN: Plan CE by Dr. Carrillo- /-2- Barrow bulb placed without difficulty and filled with 30 cc/ NS Start Pitocin at 2 mu/min once reactive - category 1 tracing Epidural when indicated Dr. Mendez updated and is collaborating physician
[2025-11-15] MEDS: fentaNYL-bupivacaine (epidural) 100 ML BAG EPIDURAL ×2 (11:45→15:44)
[2025-11-15] MEDS: Penicillin G Pot 5,000,000 UNITS in 0.9% Normal Saline (100mL MB+) 100 ML 150 UNITS IV (13:33)
[2025-11-15] MEDS: Oxytocin 15 Units/NS 250ml 15 UNITS/250 ML IV.SOLN 2 UNITS IV (14:25)
[2025-11-15] MEDS: Lactated Ringers 1,000 ML 200 ML IV (15:24)
--- NOTE | 2025-11-15 17:11 | PN.OBGYN_ITS ---
Subjective Subjective Patient is comfortable with epidural. Denies any pain with contractions. Objective Data Objective Data Vital Signs: Vital Signs Temp Pulse Resp BP Pulse Ox 98.6 F 57 L 16 116/68 94 11/15/25 16:42 11/15/25 16:55 11/15/25 16:42 11/15/25 16:55 11/15/25 12:24 Weight: 192 lb 14.472 oz Body Mass Index (BMI) 33.0 Intake & Output: Intake and Output for Last 24 Hours 11/13/25 11/14/25 11/15/25 23:59 23:59 23:59 Intake Total 3000.00 / 3000.00 Output Total 900 / 900 Balance 2100.00 / 2100.00 Lab / Micro Data 11/14/25 19:35 Labs: Laboratory Results - last 24 hr 11/14/25 19:35: WBC 12.2 H, RBC 4.11 L, Hgb 12.8, Hct 37.6, MCV 91.5, MCH 31.1, MCHC 34.0, RDW Std Deviation 43.7, RDW Coeff of Devante 13.1, Plt Count 246, MPV 12.0, Immature Gran % (Auto) 0.500, Neut % (Auto) 75.0 H, Lymph % (Auto) 15.2 L, Gillespie % (Auto) 8.5, Eos % (Auto) 0.6, Baso % (Auto) 0.2, Absolute Neuts (auto) 9.1 H, Absolute Lymphs (auto) 1.85, Nucleated RBC % 0, Syphilis Total Ab Nonreactive, Blood Type O POSITIVE, Antibody Screen NEGATIVE Assessment & Plan (1) Hypothyroidism: (2) 41 weeks gestation of : (3) Positive GBS test: (4) Meconium in amniotic fluid: PLAN: Plan Continue PCN 3 million units IV every 4 hours until delivery CE /0 Cat. [address] Pitocin at 4 mu/min- continue to increase per policy Anticipate
[2025-11-15] MEDS: Penicillin G 3,000,000 Units 50 ML 100 UNITS IV (17:39)
[2025-11-15] MEDS: Oxytocin 15 Units/NS 250ml 15 UNITS/250 ML IV.SOLN 334 UNITS IV (19:46)
[2025-11-15] MEDS: Oxytocin 15 Units/NS 250ml 15 UNITS/250 ML IV.SOLN 83 UNITS IV (20:17)
--- NOTE | 2025-11-15 20:21 | OB.VAGDELI_ITS ---
Assessment & Plan (1) Meconium in amniotic fluid: (2) Hypothyroidism: (3) (spontaneous vaginal delivery): (4) Laceration, obstetrical, second degree: (5) Care and examination of lactating mother: Maternal Data Information FINA Calculator Estimated Delivery Date Method Current WG Current Estimate 11/08/25 Manual 41w 0d Vaginal Delivery Maternal Presentation Maternal Presentation: Medically Indicated Induction Type of Induction: Pitocin, Barrow Bulb, Amniotomy and Cytotec Medical Reason for Induction: Post term Vaginal Delivery Information Procedure Performed: Spontaneous Vaginal Delivery Surgeon/Practitioner: Deena Hanson Date of Procedure: 11/15/25 Pre-Procedure Diagnosis: Term gestation, induction of labor, postdates Post-Procedure Diagnosis: , Live female Type of anesthesia: Epidural Estimated Blood Loss: 350 Time of Delivery: 19:44 Findings Description of procedure: Patient progressed to complete dilation. With good maternal effort, head delivered followed by anterior shoulder and remainder of body without any force, delay, or traction. Vigorous female was delivered atraumatically and placed on maternal abdomen. Pitocin IV started for active management of the third stage of labor. 3 vessel cord clamped and cut by FOB after delay and infant placed immediately skin to skin with patient. Cord blood collected and sent. Placenta delivered spontaneously and intact. A second degree laceration was repaired in usual fashion using 3-0 Vicryl Rapid. Hemostasis obtained. Vaginal sweep performed. Fundus is firm 2 below U and bleeding is hemostatic. Sponge and sharps counts correct. Patient and bonding well at this time. Dr. Mendez notified of delivery. Routine post orders placed. Presentation: Vertex Amniotic Membrane Rupture Type: Artificial Amniotic Fluid Description: Thick meconium Placental Delivery Description: Spontaneous Placenta Disposition: [facility] Specimen collected: No Cord Vessel Description: 3 Vessels Cord Entanglement: None Nuchal Cord Compression: Without compression A Gender: Female (1 minute): 9 (5 minute): 9 Delayed Cord Clamping: Yes Nursery Helper clinical informatics educator: No Post Vaginal Deli Medications given after delivery: IV Pitocin Episiotomy Description: None Laceration: 2nd degree Complication Complications: No
[2025-11-16 01:08] VITALS: BP 122/75; PULSE 79; RESP 16; TEMP 37.1; O2SAT 98
[2025-11-16 05:00] VITALS: BP 112/66; PULSE 85; RESP 14; TEMP 36.9; O2SAT 98
[2025-11-16 08:40] VITALS: BP 109/67; PULSE 70; RESP 16; TEMP 36.6; O2SAT 99
[2025-11-16] MEDS: SELF ADMINISTRATION OF MEDS 1 EACH NOTE (10:35)
--- NOTE | 2025-11-16 12:27 | PCM.PN.OB ---
Subjective Subjective Denies complaints Objective Data Objective Data Vital Signs: Vital Signs Temp Pulse Resp BP Pulse Ox O2 Del Method 97.8 F 70 16 109/67 99 Room Air 11/16/25 08:40 11/16/25 08:40 11/16/25 08:40 11/16/25 08:40 11/16/25 08:40 11/16/25 08:40 Oxygen Delivery Method Room Air Weight: 192 lb 14.472 oz Body Mass Index (BMI) 33.0 Intake & Output: Intake and Output for Last 24 Hours 11/14/25 11/15/25 11/16/25 23:59 23:59 23:59 Intake Total 4461.84 / 4461.84 Output Total 2200 / 2200 200 / 200 Balance 2261.84 / 2261.84 -200 / -200 Lab / Micro Data 11/14/25 19:35 Physical Exam Const alert, oriented x3 and no apparent distress HEENT normocephalic GI soft to palpation, non-tender and non-distended GI Narrative: fundus firm, mid & below umbilicus Extremity normal to inspection and no calf tenderness Assessment & Plan (1) (spontaneous vaginal delivery): COMMENT: PPD#1 PLAN: Plan Routine care
[2025-11-16 12:50] VITALS: BP 119/71; PULSE 74; RESP 16; TEMP 36.3; O2SAT 99
[2025-11-16 16:00] VITALS: BP 128/88; PULSE 97; RESP 16; TEMP 36.6; O2SAT 99
[2025-11-16 20:00] VITALS: BP 119/63; PULSE 78; RESP 16; TEMP 36.6; O2SAT 98
[2025-11-17 02:05] VITALS: BP 115/77; PULSE 62; RESP 16; TEMP 36.5; O2SAT 98
[2025-11-17 08:35] VITALS: BP 129/78; PULSE 75; RESP 16; TEMP 37.1; O2SAT 100
[2025-11-17] MEDS: Senna/Docusate Sodium 1 Tablet PO (08:44)
--- NOTE | 2025-11-17 08:48 | PCM.PN.OB ---
Subjective Subjective Doing well. Ambulating and voiding without difficulty. Mild lochia. Breast feeding. Objective Data Objective Data Vital Signs: Vital Signs Temp Pulse Resp BP Pulse Ox O2 Del Method 98.8 F 75 16 129/78 H 100 Room Air 11/17/25 08:35 11/17/25 08:35 11/17/25 08:35 11/17/25 08:35 11/17/25 08:35 11/17/25 08:35 Oxygen Delivery Method Room Air Weight: 87.5 kg Body Mass Index (BMI) 33.0 Intake & Output: Intake and Output for Last 24 Hours 11/15/25 11/16/25 11/17/25 23:59 23:59 23:59 Intake Total 4461.84 / 4461.84 Output Total 2200 / 2200 200 / 200 Balance 2261.84 / 2261.84 -200 / -200 Lab / Micro Data 11/14/25 19:35 ROS Constitutional Constitutional: Denies headache(s) Cardiovascular Cardiovascular: Denies chest pain or dyspnea Gastrointestinal Gastrointestinal: Denies nausea or vomiting Genitourinary Genitourinary: Denies dysuria Physical Exam Const alert, oriented x3 and no apparent distress General Appearance: cooperative and comfortable Eyes PERRL and EOMs intact bilaterally Resp normal respiratory effort GI soft to palpation and non-tender Narrative: Fundus firm, below umbilicus. Uterus Palpation: uterus fundus firm ( below umbilicus) Extremity normal to inspection and full ROM Neuro oriented x3 and CN's II-XII intact bilaterally Psych mental status grossly normal Assessment & Plan (1) (spontaneous vaginal delivery): (2) Meconium in amniotic fluid: PLAN: Plan Discharge home
--- NOTE | 2025-11-17 08:49 | PCM.DC.SUM ---
Providers Date of Admission: 11/14/25 Date of Discharge: 11/17/25 Primary Care Physician: RAMIN ADRIAN Reason For Visit: INDUCTION Diagnosis Discharge Diagnosis (1) (spontaneous vaginal delivery): Status: Acute Code(s): O80 - Encounter for full-term uncomplicated delivery (2) Meconium in amniotic fluid: Status: Acute Code(s): P96.83 - Meconium staining Plan Discharge home Medications at Discharge Home Medications levothyroxine 75 mcg tablet (Euthyrox) 75 mcg PO DAILY hypothyroidism 11/14/25 vit no.95-ferrous fumarate 28 mg-folic acid 800 mcg tablet () 1 tab PO DAILY 11/14/25 Hospital Course Operations None Procedures None Summary of Care Provided Minutes Spent on Discharge: 20 Hospital Course: . Breast feeding Physical Exam Const alert and no apparent distress Narrative: Fundus firm, below umbilicus. Weight / BMI Weight Weight: 87.5 kg Body Mass Index (BMI) 33.0 PRE- weight 69.853 kg ABG / Lab / Microbiology Data 11/14/25 19:35 D/C Instructions May resume sexual activity in: 6 weeks DC O2, CPAP, BIPAP Needs Home O2 Discharge instructions: No Please Follow Up With: La Mendez MD When: Follow up with our office in 1-2 and 6 weeks or as needed. [phone] Meaningful Use Info Meaningful Use Meaningful Use Diagnoses (Choose all that apply): None applicable Discharge Plan Admission Admit Date/Time: 11/14/25 19:00 Primary Reason for Your Visit: labor Attending Provider: Deena Hanson Primary Care Provider: RAMIN ADRIAN Discharge Orders/Prescriptions Prescriptions: Continued levothyroxine [Euthyrox] 75 mcg tablet 75 mcg PO DAILY PNV no.95-ferrous fumarate-FA [] 28 mg iron- 800 mcg tablet 1 tab PO DAILY Referrals / Follow Up: RAMIN ADRIAN [Other] Disposition Disposition (needs filled in before D/C Order can be placed): Home, Self Care
[2025-11-17 14:59] VITALS: BP 120/76; PULSE 71; RESP 18; TEMP 36.1; O2SAT 98
== END 2025-11-17 15:06 | disposition home or self-care (01) | DRG 806 ==
PROVIDERS: Admitting Provider Obstetrics & Gynecology; Referring Provider Obstetrics & Gynecology; Visit Provider Advanced Practice Midwife
DX: O48.0 Post-term pregnancy (principal); Z37.0 Single live birth; O98.82 Other maternal infectious and parasitic diseases complicating childbirth; E03.9 Hypothyroidism, unspecified; O99.284 Endocrine, nutritional and metabolic diseases complicating childbirth; O99.824 Streptococcus B carrier state complicating childbirth; Z3A.41 41 weeks gestation of pregnancy; O77.0 Labor and delivery complicated by meconium in amniotic fluid; B95.1 Streptococcus, group B, as the cause of diseases classified elsewhere; O70.1 Second degree perineal laceration during delivery
CPT/HCPCS: 59025; 59050; 85025; 86780; 86850; 86900; 86901; 99221; G0378